=== PATIENT | female | born 1950 | race African-American/Black ===

== ENCOUNTER 2023-10-14 11:25 | Observation (INO) | payer MEDICARE, SELFPAY ==
[2023-10-14] VITALS (20 sets, daily range): BP systolic 133–171; BP diastolic 53–83; PULSE 61–75; RESP 13–20; TEMP 36.4–37; O2SAT 95–100; BMI 26.5
--- NOTE | ~2023-10-14 | CT_ITS ---
EXAMINATION: CT cervical spine wo con DATE: 10/14/2023 16:05 INDICATION: Left neck pain. Tingling down left arm. TECHNIQUE: Computed tomography (CT) of the cervical spine was performed without intravenous contrast. Automated exposure control and iterative reconstruction technique were employed. The dose-length pro duct was 316.09 mGy-cm. COMPARISON: None FINDINGS: There is 7 degrees dextrocurvature of cervical spine. Vertebral body heights are normal. Th ere is moderately decreased disc height at C2-C3, C3-C4, and C5-C6 and mildly decreased disc height a t C6-C7. The following disc levels are specifically discussed: C2-C3: There is severe bilateral uncovertebral joint osteoarthritis. There is mild right and moderate left facet joint osteoarthritis. There is mild left neural foraminal stenosis. There is no central c anal stenosis. C3-C4: There is severe bilateral uncovertebral joint osteoarthritis. There is mild right and moderate left facet joint osteoarthritis. There is mild bilateral neural foraminal stenosis. There is no cent ral canal stenosis. C4-C5: There is mild bilateral uncovertebral joint osteoarthritis. There is no facet joint osteoarthr itis. There is no neural foraminal stenosis. There is no central canal stenosis. C5-C6: There is severe right and mild left uncovertebral joint osteoarthritis. There is moderate righ t and mild left facet joint osteoarthritis. There is mild right neural foraminal stenosis. There is m ild central canal stenosis. C6-C7: There is no uncovertebral joint osteoarthritis. There is moderate right and severe left facet joint osteoarthritis. There is mild left neural foraminal stenosis. There is no central canal stenosi s. C7-T1: There is no uncovertebral joint osteoarthritis. There is severe right and moderate left facet joint osteoarthritis. There is mild right neural foraminal stenosis. There is no central canal stenos is. IMPRESSION: 1. Moderate cervical spondylosis. Reviewed, dictated and finalized at location E.
--- NOTE | ~2023-10-14 | XR_ITS ---
EXAMINATION: XR chest 2V DATE: 10/14/2023 12:34 INDICATION: Chest pain TECHNIQUE: frontal and lateral views of the chest were obtained. COMPARISON: None FINDINGS: Couple calcified nodules in the right lower lung consistent with old granulomatous disease. Bronchial wall thickening and mild increased interstitial pattern in the dependent lower lungs. No pleural eff usion or pneumothorax. The cardiomediastinal silhouette is normal. Lower thoracic dextroscoliosis with moderate spondylosis . Suture anchors at the right humeral head likely for prior rotator cuff repair. IMPRESSION: 1. Marked wall thickening and increased interstitial pattern in the dependent lower lungs which could represent mild pulmonary edema, bronchitis/pneumonia or reactive airway disease/asthma. Reviewed, dictated and finalized at location A. IMPRESSION: 1. Marked wall thickening and increased interstitial pattern in the dependent l ower lungs which could represent mild pulmonary edema, bronchitis/pneumonia or reactive airway disease/asthma.
--- NOTE | ~2023-10-14 | CT_ITS ---
EXAMINATION:CT diagnostic chest w con DATE: 10/14/2023 13:46 INDICATION: Abnormal chest radiograph. Chest pain. TECHNIQUE: Computed tomography (CT) of the chest was performed with 75 mL Omnipaque 350 intravenous c ontrast. Automated exposure control and iterative reconstruction technique were employed. The dose-le ngth product (DLP) was 176.09 mGy-cm. COMPARISON: Chest 2 views 10/14/2023 FINDINGS: There is mild emphysema. There is mild atelectasis bilaterally. There is mild bronchiectasi s in the inferior lungs. A calcified right lung nodule and calcified right hilar lymph nodes are cons istent with old granulomatous disease. There is a 5 mm nodule in right upper lobe, likely benign. No pleural effusion. The heart size is normal. No pericardial effusion. There are cysts in left kidney m easuring up to 4.9 cm. There are suture anchors in right humeral head. There is thoracic dextroscolio sis, kyphosis, and severe spondylosis. IMPRESSION: 1. Mild emphysema. 2. Mild bronchiectasis in the inferior lungs. Reviewed, dictated and finalized at location E.
--- NOTE | ~2023-10-14 | NM_ITS ---
EXAMINATION: NM wero stress w perfusion DATE: 10/15/2023 14:26 INDICATION: Chest pain TECHNIQUE: Rest images were obtained following intravenous administration of 9.9 mCi Tc99m tetrofosmi n (Myoview). The patient was infused intravenously with Lexiscan (Regadenoson). Then, 31.2 mCi Tc99m tetrofosmin (Myoview) was administered intravenously, and stress images were obtained. Data was recon structed into short axis and horizontal and vertical long axis SPECT images. Gated SPECT images were also obtained. COMPARISON: None. FINDINGS: There is no definite reversible or fixed perfusion abnormality to suggest ischemia or infar ction. There is normal left ventricular chamber size and wall motion. Left ventricular ejection fra ction measures 37%. IMPRESSION: 1. Normal myocardial perfusion at rest and during stress. 2. Left ventricular ejection fraction measuring 37% but appears subjectively underestimated. Reviewed, dictated and finalized at location B. IMPRESSION: 1. Normal myocardial perfusion at rest and during stress. 2. Left ventricular ejection fraction measuring 37% but appears subjectively un derestimated.
--- NOTE | 2023-10-14 11:31 | ECG_ITS ---
Test Date: 2023-10-14 11:40:32 Measurements Intervals [place] Rate: 69 P: 59 [place]: 200 QRS: 23 QRSD: 90 T: 33 QT: 378 QTc: 407 Interpretive Statements SINUS RHYTHM ABNORMAL ECG No previous ECG available for comparison Electronically Signed On 10-15-2023 07:13:20 CDT by oTdd Jonas M.D.
[2023-10-14 11:45] LABS: Basophils Percent Auto 0.5 % (0.2-1.2); Eosinophils Absolute Auto 0.1 K/mm3 (0-0.3); Eosinophils Percent Auto 0.7 % (0-4.4); Hematocrit 47.2 % (37.0-47.0); Hemoglobin 15.3 g/dL (12.0-15.0); Immature Granulocyte Absolute 0.01 K/mm3 (0.00-0.031); Immature Granulocyte Percent A 0.1 % (0-0.5); Lymphocytes Absolute Auto 2.23 K/mm3 (0.9-3.2); Lymphocytes Percent Auto 30.1 % (18.3-44.2); Mean Corpuscular HGB Conc 32.4 g/dl (32-36); Mean Corpuscular Hemoglobin 28.4 pg (26-34); Mean Corpuscular Volume 87.6 fl (80-100); Monocytes Absolute Auto 0.4 K/mm3 (0.1-0.6); Monocytes Percent Auto 5.7 % (2.6-8.5); Neutrophils Absolute Auto 4.7 K/mm3 (1.3-6.7); Neutrophils Percent Auto 62.9 % (45.5-73.1); Platelet Count Result 291 k/mm3 (150-375); Red Blood Count 5.39 M/mm3 (4.2-5.4); Red Cell Distribution Width 15.1 % (11.5-14.5); White Blood Count 7.4 K/mm3 (4.5-10.0)
[2023-10-14 11:55] LABS: Alanine Aminotransferase 37 U/L (6-35); Albumin Level 4.6 g/dL (3.5-5.1); Alkaline Phosphatase 139 U/L (38-126); Anion Gap 7 mmol/L (4-12); Aspartate Amino Transferase 28 U/L (14-36); Bilirubin,Total 0.7 mg/dL (0.2-1.3); Blood Urea Nitrogen 16 mg/dL (7-17); Calcium 9.4 mg/dL (8.4-10.2); Carbon Dioxide 28 mmol/L (22-30); Chloride 103 mmol/L (98-107); Estimated CRCL calculation 52 ml/min; Estimated Glomerular Filt Rate > 60; Glucose 200 mg/dL (65-110); Lipase 54 U/L (23-300); Potassium 3.4 mmol/L (3.4-5.0); Sodium 138 mmol/L (137-145)
[2023-10-14 11:57] LABS: INR 2.2; Prothrombin Time 24.8 Seconds (11.1-14.7)
[2023-10-14 11:58] LABS: Partial Thromboplastin Time 38.9 Seconds (22.3-36.8)
[2023-10-14 12:06] LABS: Troponin I < 0.012 ng/mL (0.000-0.034)
--- NOTE | 2023-10-14 12:09 | ED.CHESTPAIN ---
HPI - Chest Pain General Chief Complaint: Chest Pain Stated Complaint: not feeling well Time Seen by Provider: 10/14/23 11:58 Source: patient and family Mode of arrival: ambulatory Limitations: no limitations History of Present Illness HPI narrative: Patient presents with chest pain this morning at 9:30 while taking a bath. Initially denies any radiation though does state she has been having left arm pain and tingling in her hand and that hasn't happened before. She was supposed to have a stress test originally tomorrow (advertising supervisor Dr Moreno, last seen 08/07/23) but they recently called and had her reschedule 11/19/23. Pain describes as a heaviness, now a fullness. She was having generalized weakness starting yesterday. She had 2 cardiac stents placed >5 years ago with no interval stress test or subsequent cardiac cath. No lower extremity edema. She feels nauseated but no vomiting. Not diaphoretic or short of brath. Hx HTN, HLD. No prior ME. History of diabetes not on insulin. Asks why her sugars have been high. Previously on metformin but it caused mental fogginess and this was discontinued. Cutting back on smoking, previously 1 PPD now 8 cigarettes/day. On carvedilol, amlodipine, atorvasatin, and warfarin. No family history of ME <65yo. Related Data Home Medications Medication Instructions Recorded Confirmed Lactobacillus rhamnosus GG 10 1 cap PO DAILY 10/14/23 10/14/23 billion cell capsule (Culturelle) Ultra CoQ10 1 tablet PO DAILY 10/14/23 10/14/23 amlodipine 10 mg tablet 10 mg PO DAILY 10/14/23 10/14/23 atorvastatin 20 mg tablet 20 mg PO DAILY 10/14/23 10/14/23 carvedilol 25 mg tablet 12.5 mg PO BID 10/14/23 10/14/23 chlorthalidone 25 mg tablet 25 mg PO DAILY 10/14/23 10/14/23 cod liver oil 1 cap PO DAILY 10/14/23 10/14/23 ergocalciferol (vitamin D2) 1,250 1,250 mcg PO WEEKLY 10/14/23 10/14/23 mcg (50,000 unit) capsule (Vitamin D2) hydrocodone 5 mg-acetaminophen 325 1 tablet PO TID PRN Pain (Scale 10/14/23 10/14/23 mg tablet Score 7-10) magnesium 500 mg tablet 500 mg PO DAILY 10/14/23 10/14/23 multivitamin 1 tablet PO DAILY 10/14/23 10/14/23 vit C 250 mg-vit E 90 mg-zinc 40 1 cap PO DAILY 10/14/23 10/14/23 mg-copper 1 jh-wuehwr-eunhgy capsule (PreserVision AREDS-2) warfarin 5 mg tablet See Rx Instructions .Route .COMPLEX 10/14/23 10/14/23 Allergies Allergy/AdvReac Type Severity Reaction Status Date / Time aspirin AdvReac Nausea and Verified 10/14/23 11:43 Vomiting cephalexin [From Keflex] AdvReac Nausea and Verified 10/14/23 11:43 Vomiting codeine AdvReac Nausea and Verified 10/14/23 11:43 Vomiting PMFSH Past Medical History Medical History (Updated 10/15/23 @ 17:07 by Maria Alejandra Phelan MD) CAD (coronary artery disease) Cataracts, bilateral COPD (chronic obstructive pulmonary disease) DM2 (diabetes mellitus, type 2) GERD (gastroesophageal reflux disease) HTN (hypertension) Hypercholesterolemia Migraines Ulcer Surgical History Surgical History History of heart artery stent x2 History of repair of rotator cuff Family History Family History Sibling Asthma Diabetes mellitus Prostate carcinoma Daughter Diabetes mellitus Son Leukemia Other Hypertension Social History Social History (Updated 10/15/23 @ 17:07 by Maria Alejandra Phelan MD) Smoking packs per day: 0.5 Smoking cigarettes per day: 10.0 Years smoked: 57 Smoking pack-years: 28.50 Smoking status: Current every day smoker Tobacco type: cigarettes Additional smoking assessment comments: Previously 1 PPD, now 8 cigarettes/day Alcohol intake: never Substance use: never Do You Feel Safe in your Home?: Yes Lack of Transportation: No Lack of Food: Never True Current Housing: I Have Housing Concerned About Future Housing: No Difficulty Paying Gas/Electric Bills: No Dif
[2023-10-14 12:39] LABS: Magnesium 1.9 mg/dL (1.6-2.3)
[2023-10-14 13:05] LABS: Influenza A QL RT-PCR Negative (Negative); Influenza B QL RT-PCR Negative (Negative); RSV RNA, RT-PCR Negative (Negative); SARS-CoV-2 RNA PCR Negative (Negative)
[2023-10-14 13:35] LABS: Appearance Urine Clear (Clear); Bilirubin Urine Negative (Negative); Blood Urine Negative (Negative); Color Urine Yellow (Yellow); Glucose Urine UA Negative (Negative); Ketones Urine Negative (Negative); Leukocyte Esterase Ur Negative LEU/UL (Negative); Nitrate Urine Negative (Negative); Protein Urine Negative (Negative); Urobilinogen Urine 0.2 mg/dL (<2.0)
--- NOTE | 2023-10-14 13:39 | PC.NURSE ---
Patient in cat scan
[2023-10-14 13:50] LABS: Add Urine Microscopic? NO
[2023-10-14] MEDS: SODIUM CHLORIDE 0.9% IV 1,000 ML 999 ML IV CONT (14:08)
[2023-10-14 14:52] LABS: Troponin I < 0.012 ng/mL (0.000-0.034)
[2023-10-14] MEDS: HYDROcodone/acetaminophen (*CRX) 5-325 MG TABLET 1 TAB PO ×2 (15:19→23:59)
--- NOTE | 2023-10-14 16:03 | PM.IMHP ---
H&P: HPI History of Present Illness Date/Time: 10/14/23 16:03 Chief Complaint: Chest Pain Narrative: 73 y/o F presents here with chest pain with PMH of hypertension, hyperlipidemia, diabetes mellitus, smoker, COPD, CAD, and prior PCI x2 (two different occasional). Patient presents here from home for further evaluation of generalized weakness, chest pain, and left arm pain with tingling in her left hand. Chest pain started this morning while the patient was sitting in bed at 0930 a.m. She describes the chest pain as heaviness, 8/10, radiating into her LUE, constant, no aggravating factors, and no alleviating factors. She follows with Tiffanie JAEGER with [facility] for her cardiac care. She had a scheduled stress test planned for tomorrow and was rescheduled today due to coming to the ER for 11/05. Patient does report some neck pain that has been intermittent for the past 10/06. Has known basal vertebral stenosis on warfarin for this. The chest pain earlier this morning was accompanied by intermittent mild nausea and fatigue. Denies sense of doom, diaphoresis, palpitations, jaw pain, GERD-like symptoms, pre-syncope, or shortness of breath. No recent illnesses. Had one new medication added this month - chlorthalidone. Chest pain is still present, described as dull, radiating into her LUE, and 6/10. Initial VS at presentation: 97.5F, HR 72, RR 18, 171/73, 98% on RA. ED workup showed: No leukocytosis, hemoglobin 15.3, INR 2.2, no significant electrolyte derangements, A1c 7.3%, glucose 200, creatinine 0.7 and normal GFR, initial troponins negative x2, and UA unremarkable. CXR showed marked wall thickening and increased interstitial pattern in the dependent lower lung that could represent mild pulmonary edema, bronchiectasis/pneumonia, or reactive airway disease. Chest CT showed mild emphysema and mild bronchiectasis in inferior lungs. Want EKG showed normal sinus rhythm with a rate of 69. Review of Systems Review of Systems: All systems reviewed & are unremarkable except as noted in HPI and below [facility] Past Medical History Medical History CAD (coronary artery disease) Cataracts, bilateral COPD (chronic obstructive pulmonary disease) DM2 (diabetes mellitus, type 2) GERD (gastroesophageal reflux disease) HTN (hypertension) Migraines Ulcer Surgical History Surgical History History of heart artery stent x2 History of repair of rotator cuff Family History Family History Sibling Asthma Diabetes mellitus Prostate carcinoma Daughter Diabetes mellitus Son Leukemia Other Hypertension Social History Social History Smoking packs per day: 0.5 Smoking cigarettes per day: 10.0 Years smoked: 57 Smoking pack-years: 28.50 Smoking status: Current every day smoker Tobacco type: cigarettes Alcohol intake: never Substance use: never Do You Feel Safe in your Home?: Yes Lack of Transportation: No Lack of Food: Never True Current Housing: I Have Housing Concerned About Future Housing: No Difficulty Paying Gas/Electric Bills: No Difficulty Paying for Meds: No Currently Unemployed: No Education: High School Diploma/GED Difficulty w/ Childcare or Family Care: No Spiritual care concerns: No Meds Home Medications and Allergies Home Medications Medication Instructions Recorded Confirmed Type Lactobacillus rhamnosus GG 10 1 cap PO DAILY 10/14/23 10/14/23 History billion cell capsule (Culturelle) Ultra CoQ10 1 tablet PO DAILY 10/14/23 10/14/23 History amlodipine 10 mg tablet 10 mg PO DAILY 10/14/23 10/14/23 History atorvastatin 20 mg tablet 20 mg PO DAILY 10/14/23 10/14/23 History carvedilol 25 mg tablet 12.5 mg PO BID 10/14/23 10/14/23 History chlorthalid
[2023-10-14 16:04] LABS: Hemoglobin A1C 7.3 % (<5.7)
--- NOTE | 2023-10-14 16:41 | PC.NURSE ---
This RN received report from GILLIAN Harris. Patient A&O, no current CP at this time.
--- NOTE | 2023-10-14 17:21 | ADMGEN ---
This patient, Angie Ferrera, was admitted to IMU Room 212-01. Patient/family oriented to hospital policies and general routines including ID bracelet, bed and alarms, visiting hours, pain management, procedures, bathroom and other care routines, personal items, smoking policy, room service/diet, and visiting hours. Information on how to activate the Rapid Response Team has been discussed. Patient/Family are encouraged to report perceived risks to care and to ask questions if they do not understand what they are told or what they should do.
[2023-10-14 18:17] LABS: Troponin I < 0.012 ng/mL (0.000-0.034)
[2023-10-14 18:44] LABS: Cholesterol 185 mg/dL (0-200); HDL Direct 46 mg/dL; Triglycerides 196 mg/dL (<150)
[2023-10-14 18:55] LABS: LDL Cholesterol Direct 106 mg/dL
[2023-10-14 20:35] LABS: Glucose Point of Care 270 mg/dl (65-105)
[2023-10-14] MEDS: carvediloL 12.5 MG TABLET PO (23:59)
[2023-10-15] VITALS (12 sets, daily range): BP systolic 123–146; BP diastolic 49–63; PULSE 54–68; RESP 16–18; TEMP 36.7–36.8; O2SAT 95–98; BMI 26.9
--- NOTE | 2023-10-15 | EST_ITS ---
Patient Info Name: Angie Ferrera Age: 73 years : 1950 Gender: Female Ht: 61 in Wt: 142 lbs BSA: 1.68 m2 HR: 57 bpm BP: 151 / 58 mmHg Exam Date: 10/15/2023 1:14 PM Exam Location: Echo Lab Patient Status: Inpatient Admit Date: 10/14/2023 Staff Ordering Physician: Elissa Miranda Attending Provider: Joanne Hoskins APRN Exercise Technologist: Amie Collins RDCS Exam Type: CA stress wero w NM Study Info A regadenoson stress test was performed. Summary 1. Sinus bradycardia, otherwise normal ECG. 2. No ST segment changes following Lexiscan infusion. 3. Clinically and electrocardiographically negative Lexiscan stress test. 4. Myocardial perfusion imaging study to be dictated by Radiology. Protocol: Lexiscan Stress ECG Details Stage: REST Duration (min): 7 min : 58 sec HR (bpm): 58 SBP (mmHg): 151 DBP (mmHg): 58 Stage: REST Duration (min): 16 min : 40 sec HR (bpm): 63 SBP (mmHg): 151 DBP (mmHg): 58 Stage: STAGE 1 Duration (min): 1 min : 0 sec HR (bpm): 79 SBP (mmHg): 148 DBP (mmHg): 50 Stage: RECOVERY Duration (min): 1 min : 0 sec HR (bpm): 80 SBP (mmHg): 148 DBP (mmHg): 50 Stage: RECOVERY Duration (min): 2 min : 0 sec HR (bpm): 77 SBP (mmHg): 148 DBP (mmHg): 50 Stage: RECOVERY Duration (min): 3 min : 0 sec HR (bpm): 74 SBP (mmHg): 132 DBP (mmHg): 53 Stage: RECOVERY Duration (min): 3 min : 11 sec HR (bpm): 72 SBP (mmHg): 132 DBP (mmHg): 53 Rest HR: 63 bpm Peak HR: 82 bpm Rest Sys BP: 151 mmHg Peak Sys BP: 148 mmHg Max Pred HR: 146 bpm % Max Pred HR: 56 % Target HR: 124 bpm Max RPP: 12,136 bpm*mmHg Termination Reason: Completed protocol Total Time: 1 min : 0 sec Rest Fowler BP: 58 mmHg Peak Fowler BP: 50 mmHg Total Dose: 0.4 mg Resting ECG Sinus bradycardia, otherwise normal ECG. Stress ECG No ST segment changes following Lexiscan infusion. Report Signatures
--- NOTE | 2023-10-15 | ECHO_ITS ---
Patient Info Name: Angie Ferrera Age: 73 years : 1950 Gender: Female Ht: 61 in Wt: 142 lbs BSA: 1.68 m2 HR: 58 bpm BP: 123 / 49 mmHg Heart Rhythm: Sinus Rhythm Technical Quality: Fair Exam Date: 10/15/2023 11:53 AM Exam Location: Echo Lab Patient Status: Inpatient Admit Date: 10/14/2023 Staff Ordering Physician: Joanne Hoskins APRN Nurse Practitioner Per Diem: Thomas Blank RDCS Attending Provider: Joanne Hoskins APRN Referring Physician: Gato BENITO; Exam Type: CA echo doppler color flow Study Info Indications R07.9 - Chest pain, unspecified Complete two-dimensional, color flow and Doppler transthoracic echocardiogram is performed. Summary 1. Complete two-dimensional, color flow and Doppler transthoracic echocardiogram is performed. 2. Concentric left ventricular hypertrophy with vigorous systolic function. 3. Moderate left atrial enlargement. 4. Mild aortic valve sclerosis with well maintained leaflet excursion. 5. Trivial mitral regurgitation. Left Ventricle Left ventricular chamber dimension is normal. Left ventricular systolic function is normal, estimated at 60-65%. There is mild concentric increased left ventricular wall thickness. The left ventricular diastolic function is grade I diastolic dysfunction. Right Ventricle Right ventricular chamber dimension is normal. Left Atria Left atrial chamber dimension is moderately enlarged. Right Atria Right atrial chamber dimension is normal. Aortic Valve The aortic valve is trileaflet. There is mild aortic valve sclerosis. Pulmonic Valve The pulmonic valve is normal. Mitral Valve The mitral valve has normal leaflets. There is trace mitral valve regurgitation. Tricuspid Valve The tricuspid valve leaflets are normal. There is mild tricuspid valve regurgitation. Pericardium/Pleural The pericardium appears normal. Aorta The aortic root size at the sinus of Valsalva is normal. Left Ventricular Outflow Tract Name Value Normal LVOT 2D LVOT Diameter 1.9 cm LVOT Doppler LVOT Peak Gradient 7 mmHg LVOT Mean Gradient 3 mmHg LVOT VTI 30 cm LVOT VTI/AV VTI Ratio 0.7 LVOT Stroke Volume 84 ml LVOT CO 4.7 l/min LVOT CI 2.8 l/min/m2 Pulmonic Valve Name Value Normal RVOT Doppler RVOT Peak Gradient 2 mmHg PV Doppler PV Peak Gradient 2 mmHg PV Regurgitation Doppler VT Peak End Diastolic Velocity 99 cm/s Mitral Valve Name Value Normal ------
[2023-10-15 04:27] LABS: Basophils Absolute Auto 0.1 K/mm3 (0.0-0.1); Basophils Percent Auto 0.7 % (0.2-1.2); Eosinophils Absolute Auto 0.2 K/mm3 (0-0.3); Eosinophils Percent Auto 2.1 % (0-4.4); Hematocrit 42.5 % (37.0-47.0); Hemoglobin 13.5 g/dL (12.0-15.0); Immature Granulocyte Absolute 0.01 K/mm3 (0.00-0.031); Immature Granulocyte Percent A 0.1 % (0-0.5); Lymphocytes Absolute Auto 3.52 K/mm3 (0.9-3.2); Lymphocytes Percent Auto 49.1 % (18.3-44.2); Mean Corpuscular HGB Conc 31.8 g/dl (32-36); Mean Corpuscular Hemoglobin 28.2 pg (26-34); Mean Corpuscular Volume 88.9 fl (80-100); Mean Platelet Volume 9.6 fl (7.4-10.4); Monocytes Absolute Auto 0.6 K/mm3 (0.1-0.6); Monocytes Percent Auto 7.9 % (2.6-8.5); Neutrophils Absolute Auto 2.9 K/mm3 (1.3-6.7); Neutrophils Percent Auto 40.1 % (45.5-73.1); Platelet Count Result 267 k/mm3 (150-375); Red Blood Count 4.78 M/mm3 (4.2-5.4); Red Cell Distribution Width 15.3 % (11.5-14.5); White Blood Count 7.2 K/mm3 (4.5-10.0)
[2023-10-15 04:38] LABS: Alanine Aminotransferase 32 U/L (6-35); Albumin Level 3.6 g/dL (3.5-5.1); Alkaline Phosphatase 131 U/L (38-126); Anion Gap 5 mmol/L (4-12); Aspartate Amino Transferase 27 U/L (14-36); Bilirubin,Total 0.4 mg/dL (0.2-1.3); Blood Urea Nitrogen 18 mg/dL (7-17); Calcium 8.6 mg/dL (8.4-10.2); Carbon Dioxide 26 mmol/L (22-30); Chloride 107 mmol/L (98-107); Estimated CRCL calculation 52 ml/min; Estimated Glomerular Filt Rate > 60; Glucose 123 mg/dL (65-110); Potassium 3.6 mmol/L (3.4-5.0); Sodium 138 mmol/L (137-145)
[2023-10-15 07:31] LABS: Glucose Point of Care 152 mg/dl (65-105)
--- NOTE | 2023-10-15 08:35 | PM.CNCAR ---
Assessment and Plan Assessment and plan (1) Chest pain: Qualifiers: Chest pain type: other chest pain Qualified Code(s): R07.89 - Other chest pain Code(s): R07.9 - Chest pain, unspecified Status: Acute Assessment and Plan: Atypical chest pain with negative troponin and normal appearing EKG. She has a lexiscan stress test scheduled with her established darklight inspector and given lack of any objective evidence of ACS, would be reasonable to proceed with this. However, since patient already admitted will go ahead and order lexiscan to be performed today in the hospital. If negative for ischemia she can be discharged to follow up with Dr. Moreno (2) CAD (coronary artery disease): Code(s): I25.10 - Atherosclerotic heart disease of [place] coronary artery without angina pectoris Status: Acute Assessment and Plan: Hx CAD with 2 stents per patient report. Continue statin - she should be on a high intensity statin unless there is some contraindication to this I am unaware of. (3) HTN (hypertension): Qualifiers: Hypertension type: primary hypertension Qualified Code(s): I10 - Essential (primary) hypertension Code(s): I10 - Essential (primary) hypertension Status: Acute Assessment and Plan: Blood pressure is currently at goal. Continue current medical regimen. History of Present Illness History of Present Illness Consult date/time: 10/15/23 08:35 Requesting physician: Sandra Tolentino APRN Consult reason: chest pain Reason For Visit: CP/Heart score 5 Narrative: Angie Ferrera is a 73 year old female with a history of coronary artery disease with stents (most recent stent placed ~10 years ago). She follows with Dr. Moreno at [facility] for this. She comes to the hospital with a chief complaint of chest heaviness which she has adwoa experiencing for about 6 weeks. She states she forgot to mention it to Dr. Moreno at her last office visit. She describes the pain as a heavy sensation on her chest when she lays down especially in the evening. She denies any shortness of breath or radiation of the pain but does feel palpitations occasionally. She does not notice that the pain is worse with exertion and states that she hasn't tried any interventions to improve the pain but usually it will dissipate with rest. She is lying comfortably in bed at the time of my evaluation and does not have any complaints. Review of Systems Review of Systems: All systems reviewed & are unremarkable except as noted in HPI and below PMFSH Past Medical History Medical History (Updated 10/15/23 @ 17:07 by Maria Alejandra Phelan MD) CAD (coronary artery disease) Cataracts, bilateral COPD (chronic obstructive pulmonary disease) DM2 (diabetes mellitus, type 2) GERD (gastroesophageal reflux disease) HTN (hypertension) Hypercholesterolemia Migraines Ulcer Surgical History Surgical History History of heart artery stent x2 History of repair of rotator cuff Family History Family History Sibling Asthma Diabetes mellitus Prostate carcinoma Daughter Diabetes mellitus Son Leukemia Other Hypertension Social History Social History (Updated 10/15/23 @ 17:07 by Maria Alejandra Phelan MD) Smoking packs per day: 0.5 Smoking cigarettes per day: 10.0 Years smoked: 57 Smoking pack-years: 28.50 Smoking status: Current every day smoker Tobacco type: cigarettes Additional smoking assessment comments: Previously 1 PPD, now 8 cigarettes/day Alcohol intake: never Substance use: never Do You Feel Safe in your Home?: Yes Lack of Transportation: No Lack of Food: Never True Current Housing: I Have Housing Concerned About Future Housing: No Difficulty Paying Gas/Electric Bills: No Difficulty Paying for Meds: No Currently Unemployed: No Education: H
[2023-10-15] MEDS: ATORVASTATIN 20 MG TABLET PO (08:36)
[2023-10-15] MEDS: OPTI-GEN TAB 1 TABLET PO (08:37)
[2023-10-15] MEDS: CHLORTHALIDONE 25 MG TABLET PO (08:37)
[2023-10-15] MEDS: carvediloL 12.5 MG TABLET PO (08:37)
[2023-10-15] MEDS: MULTIVITAMINS THERAPEUTIC TAB (*BKC) 1 TABLET PO (08:37)
[2023-10-15] MEDS: amLODIPine BESYLATE 5 MG TABLET 10 MG PO (08:37)
[2023-10-15] MEDS: MAGNESIUM 27 MG TABLET (500 MG MAG GLUCONATE) PO (08:37)
[2023-10-15] MEDS: PANTOPRAZOLE 40 MG TABLET PO (08:40)
[2023-10-15 09:10] LABS: Magnesium 1.8 mg/dL (1.6-2.3)
[2023-10-15 09:11] LABS: INR 1.7; Prothrombin Time 19.9 Seconds (11.1-14.7)
[2023-10-15 11:57] LABS: Glucose Point of Care 120 mg/dl (65-105)
--- NOTE | 2023-10-15 14:52 | PC.NURSE ---
Updated provider of wero scan results, waiting on echo to be read.
--- NOTE | 2023-10-15 16:06 | PM.DS ---
DS: Admitting Diagnosis Discharge Date 10/15/2023 Admitting Diagnosis Chest Pain DS: Discharge Diagnosis Discharge Diagnosis (1) Chest pain: Qualifiers: Chest pain type: other chest pain Qualified Code(s): R07.89 - Other chest pain Code(s): R07.9 - Chest pain, unspecified Status: Acute Assessment and Plan: - EKG, initial: Sinus rhythm, rate 69, no previous available for comparison. Awaiting formal read. - EKG, repeat ordered with 6 hour troponin - CXR: marked wall thickening and increased interstitial pattern in the dependent lower lungs which could represent mild pulmonary edema, bronchitis/pneumonia or reactive airway disease/asthma. - Troponin: <0.012 - ASA 324 given and SL nitro PRN - cardiology consulted, awaiting recs - on warfarin, continue. INR 2.2 - add lipid panel, A1C is 7.3 - follows with [facility] - stress test was previously planned for tomorrow, cancelled due to current admission, no previous on file - telemetry monitoring (2) Hyperglycemia due to diabetes mellitus: Code(s): E11.65 - Type 2 diabetes mellitus with hyperglycemia Status: Acute Assessment and Plan: - hypoglycemia protocol - POC blood glucose ACHS - no home medications, previously has only been on metformin and was not tolerated well - correct regimen ordered - low TIDWM and HS - A1C 7.3% on 10/13 - biofuels production technician consulted (3) HTN (hypertension): Qualifiers: Hypertension type: primary hypertension Qualified Code(s): I10 - Essential (primary) hypertension Code(s): I10 - Essential (primary) hypertension Status: Acute Assessment and Plan: - chronic, currently 143/53 - continue home medications: Amlodipine 10 mg, carvedilol 12.5 mg BID, chlorthalidone 25 mg daily - monitor Plan The patient presented here with midsternal chest pain radiating down her left arm. Sees [facility] for her cardiac care. Had planned stress test tomorrow, however canceled due to current admission. NPO at midnight in case of procedures. Cardiology consulted. Troponin negative x3. Also has uncontrolled diabetes, previously trialed on metformin and was not tolerated well, no other home medications. neuro intensivist physician consulted. DS: Summary Hospital Course Reason for hospitalization: Chest Pain Hospital Course: Chief Complaint: Chest Pain Narrative: 73 y/o F presents here with chest pain with PMH of hypertension, hyperlipidemia, diabetes mellitus, smoker, COPD, CAD, and prior PCI x2 (two different occasional). Patient presents here from home for further evaluation of generalized weakness, chest pain, and left arm pain with tingling in her left hand. Chest pain started this morning while the patient was sitting in bed at 0930 a.m. She describes the chest pain as heaviness, 8/10, radiating into her LUE, constant, no aggravating factors, and no alleviating factors. She follows with Tiffanie JAEGER with [facility] for her cardiac care. She had a scheduled stress test planned for tomorrow and was rescheduled today due to coming to the ER for 11/05. Patient does report some neck pain that has been intermittent for the past 10/06. Has known basal vertebral stenosis on warfarin for this. The chest pain earlier this morning was accompanied by intermittent mild nausea and fatigue. Denies sense of doom, diaphoresis, palpitations, jaw pain, GERD-like symptoms, pre-syncope, or shortness of breath. No recent illnesses. Had one new medication added this month - chlorthalidone. Chest pain is still present, described as dull, radiating into her LUE, and 6/10. Initial VS at presentation: 97.5F, HR 72, RR 18, 171/73, 98% on RA. ED workup showed: No leukocytosis, hemoglobin 15.3, INR 2.2, no significant electrolyte derangements, A1c 7.3%, glucose 200, creatinine 0.7 and normal GFR, initial troponins negative x2, and UA unremarkable. CXR showed marke
[2023-10-15] MEDS: WARFARIN (*PBKC) 5 MG TABLET PO (17:02)
== END 2023-10-15 17:36 | disposition home or self-care (01) ==
LOC: ANHED 12:11 → ANHIMU 16:40
PROVIDERS: Student in an Organized Health Care Education/Training Program; Admitting Provider Internal Medicine; Emergency Provider Student in an Organized Health Care Education/Training Program; PCP Internal Medicine; Visit Provider Nurse Practitioner Family
DX: R07.9 Chest pain, unspecified (principal); R74.01 Elevation of levels of liver transaminase levels; E11.65 Type 2 diabetes mellitus with hyperglycemia; M47.812 Spondylosis without myelopathy or radiculopathy, cervical region; J47.9 Bronchiectasis, uncomplicated; I10 Essential (primary) hypertension; I25.10 Atherosclerotic heart disease of native coronary artery without angina pectoris; J44.9 Chronic obstructive pulmonary disease, unspecified; E78.00 Pure hypercholesterolemia, unspecified; K21.9 Gastro-esophageal reflux disease without esophagitis; F17.210 Nicotine dependence, cigarettes, uncomplicated; Z79.01 Long term (current) use of anticoagulants; Z20.822 Contact with and (suspected) exposure to COVID-19
CPT/HCPCS: 36415; 71046; 71260; 72125; 78452; 80053; 80061; 81003; 82948; 83036; 83690; 83735; 84484; 85025; 85610; 85730; 87637; 93005; 93017; 93306; 96360; 99285; A9270; A9502; G0378; J2785; J7030; Q9967

== ENCOUNTER 2024-01-17 11:27 | Outpatient (CLI) | payer MEDICARE, SELFPAY ==
--- NOTE | ~2024-01-17 | XR_ITS ---
EXAM: XR knee RT 3V DATE: 01/17/2024 11:59 HISTORY: PAIN OF RIGHT KNEE JOINT . COMPARISON: None available. FINDINGS: Decreased mineralization. No fracture or dislocation. No lytic or blastic lesion. Quadrice ps enthesopathy. Mild medial and lateral joint space narrowing. Mild patellofemoral osteophytosis. No erosion or periosteal change. Scattered vascular calcifications. IMPRESSION: Osteopenia. Mild tricompartmental osteoarthritis. Reviewed, dictated and finalized at location K.
== END 2024-01-17 11:28 | disposition home or self-care (01) ==
LOC: ANHIMG 11:33
PROVIDERS: PCP Internal Medicine; Visit Provider Internal Medicine
DX: M85.88 Other specified disorders of bone density and structure, other site (principal); M17.11 Unilateral primary osteoarthritis, right knee
CPT/HCPCS: 73562

== ENCOUNTER 2024-04-17 12:42 | Outpatient (CLI) | payer MEDICARE, SELFPAY ==
--- NOTE | ~2024-04-17 | MR_ITS ---
EXAMINATION: MR knee RT wo con DATE: 04/17/2024 13:18 INDICATION: Right knee pain TECHNIQUE: Magnetic resonance imaging (MRI) of the right knee was performed without intravenous contr ast. Sequences included coronal PD-weighted FSE, coronal PD-weighted FS FSE, sagittal T2-weighted FS E, sagittal PD-weighted FS FSE and axial PD weighted fat saturated FSE. COMPARISON: Right knee radiographs dated 01/17/2024 FINDINGS: Medial compartment: Medial meniscus is normal. Deep chondral fissuring without degenerative subchondral changes at the la teral half of the anterior weightbearing medial femoral condyle. Remaining articular cartilage is nor mal. Lateral compartment: Lateral meniscus is normal. Articular cartilage is normal. Patellofemoral compartment: Partial-thickness cartilage loss involving greater than 50% the cartilage thickness but without degen erative subchondral changes at the cephalad two thirds of the lateral patellar facet, apical ridge an d lateral side of the medial facet. Additional full/near full-thickness chondral ulceration with mild underlying cortical irregularity and minimal subarticular edema-like signal change at the lateral tr ochlea. Partial-thickness chondral fissuring without degenerative subchondral changes at the cephalad aspect of the trochlear groove and medial trochlea. Ligaments and tendons: Anterior and posterior cruciate ligaments are normal. The medial collateral ligament and fibular isaac ateral ligament complex are normal. There are small enthesophytes at the patellar insertion of the ot herwise normal patellar and distal quadriceps tendons. The visualized medial and lateral hamstring te ndons as well as the iliotibial band are normal. Fluid: Physiologic amount of fluid in the joint space. No loose osteochondral bodies identified. Osseous/other: Bone alignment is normal. No fracture or pathologic marrow replacing process. Low signal intensity [place] at the posterior lateral femoral condyle. There is a 2.0 x 1.6 x 1.3 cm heterogeneously ilya y T2 hyperintense ovoid mass which appears to arise from the peroneal nerve most consistent with a sc hwannoma. IMPRESSION: 1. Mild osteoarthritis with regions of moderate to high-grade chondromalacia in the medial and patell ofemoral compartments. 2. 2.0 x 1.6 x 1.3 cm very T2 hyperintense mass along the common peroneal nerve most consistent with a schwannoma. Reviewed, dictated and finalized at location B. L AND PATTERN SUPERVISOR IMPRESSION: 1. Mild osteoarthritis with regions of moderate to high-grade chondromalacia in the medial and patellofemoral compartments. 2. 2.0 x 1.6 x 1.3 cm very T2 hyperintense mass along the common peroneal nerve most consistent with a schwannoma.
== END 2024-04-17 12:43 | disposition home or self-care (01) ==
LOC: GOSHIMG 12:42
PROVIDERS: PCP Internal Medicine; Visit Provider Orthopaedic Surgery
DX: M17.11 Unilateral primary osteoarthritis, right knee (principal); M22.41 Chondromalacia patellae, right knee; G57.31 Lesion of lateral popliteal nerve, right lower limb
CPT/HCPCS: 73721

== ENCOUNTER 2024-05-22 10:56 | Outpatient (CLI) | payer MEDICARE, SELFPAY ==
--- NOTE | ~2024-05-22 | MM_ITS ---
EXAMINATION: MM screening [facility] BI w swati HISTORY: Screening TECHNIQUE: Craniocaudal and mediolateral oblique 3-D tomosynthesis images were obtained and synthetic 2-D images were generated. CAD analysis was submitted and interpreted. COMPARISON: No prior mammogram is available for comparison at this institution. BREAST PARENCHYMAL COMPOSITION: Not dense: There are scattered areas of fibroglandular density. FINDINGS: There is no evidence of suspicious mass, calcification, or architectural distortion to sugg est malignancy in either breast. There has been no suspicious interval change. IMPRESSION: 1. No mammographic evidence of malignancy. 2. Recommend routine screening mammography in one year. BI-RADS Category 1: Negative Reviewed, dictated and finalized at location A. HIATRIC LPN
--- OUTSIDE RECORDS SUMMARY | 2024-05-22 11:49 | XMS_ITS | Clinical Summary ---
Author Organization [facility] Address [address] [place] [address] Care Team Providers Care Sanitary Engineer Name Role Phone Provider, No Pcp Primary Care Provider Unavailab le Source Comments [facility],non-owned Affiliates and Associated Physician Practices is amultiple site organization consisting of ambulatory clinics and hospital sitesin [place], [place], [place] and [place]. This disclosure is being madepursuant to the Care Everywhere program and may not contain all information available regarding this patient. Last updated 18.[facility] Allergies No known active allergies Medications * Be aware that medications may not be up to date on this document. Alwaysverify current medications with the patient. Medication Sig Dispensed Refills Start Date End Date Status warfarin (Coumadin) 7.5 MG tablet Take 1 (one) tablet by mouth once daily Active warfarin (Coumadin) 5 MG tablet Take 1 (one) tablet by mouth once daily Active atorvastatin (Lipitor) 20 MG tablet Take 1 (one) tablet by mouth once daily Active chlorthalidone (Hygroton) 25 MG tablet Take 1 (one) tablet by mouth once daily Active carvedilol (Coreg) 25 MG tablet Take 0.5 (one-half) tablet by mouth 2 times daily Active amLODIPine (Norvasc) 10 MG tablet Take 1 (one) tablet by mouth once daily Active vitamin D, ergocalciferol, (Drisdol) 1.25 MG (19779 UT) capsule Take 1 (one) capsule by mouth Active Active Problems No known active problems Encounters Date Type Department Care Team Description 04/10/2024 1:15 PM CURTAIN SUPERVISOR Office Visit [facility] - Orthopedics [address] [place] [address], Count Includes [facility] [address] Barbara Liao PA-C Cervical radiculopathy at C8 (Primary Dx); Cervical spondylosis; Rotator cuff arthropathy, left; Shoulder arthritis 04/10/2024 Travel 03/31/2024 Telephone [facility] - Orthopedics [facility] [facility], [place] [address] Marlena Zarate, GILLIAN Question 03/04/2024 1:00 PM CURTAIN SUPERVISOR Office Visit [facility] - Family Medicine [address] [place] [address], [place] [address] Harvinder Kaur MD Osteoarthritis of left glenohumeral joint (Primary Dx) 03/04/2024 Travel 02/21/2024 11:30 AM CDT - 02/21/2024 11:59 PM CDT Hospital Encounter [facility] [address] [place] [address] Barbara Liao PA-C Discharge Disposition: Home or Self Care 02/21/2024 Travel from Last 3 Months Social History Tobacco Use Types Packs/Day Years Used Date Smoking Tobacco: Some Days Cigarettes Smokeless Tobacco: Never Tobacco Cessation:Ready to Q uit: Not Asked; Counseling Given: Not Answered Alcohol Use Standard Drinks/Week Comments Not Currently 0 (1 standard drink = 0.6 oz pur e alcohol) PHQ-2 Answer Date Recorded Patient Health Questionnaire-2 Score 0 04/10/2024 Sex and Gender Information Value Date Recorded Sex Assigned at Not on file Gender Identity Not on file Sexual Orientation Not on file Last Filed Vital Signs Vital Sign Reading Time Taken Comments Blood Pressure 179/90 03/04/2024 1:25 PM CURTAIN SUPERVISOR Pulse - - Temperature - - Respiratory Rate - - Oxygen Saturation - - Inhaled Oxygen Concentration - - Weight 61.2 kg (135 lb) 04/10/2024 12:25 PM CURTAIN SUPERVISOR Height 154.9 cm (5' 1 ) 03/04/2024 1:25 PM CURTAIN SUPERVISOR Body Mass Index 25.51 03/04/2024 1:25 PM CURTAIN SUPERVISOR Plan of Treatment Health Maintenance Due Date Last Done Comments BONE DENSITY TESTING 1950 COLOGUARD (AGES 45-75) - COLON CA SCREENING 1950 COLON MONITORING 1949 COLONOSCOPY - COLON CA SCREENING 1949 CT COLONOGRAPHY - COLON CA SCREENING 1950 Colorectal Cancer Screening 1950 FIT - COLON CA SCREENING 1949 FLEX SIG - COLON CA SCREENING 1950 MAMMOGRAM 1950 HEPATITIS C SCREENING 02/18/1967 DTAP/TDAP/TD VACCINES (1 - Tdap) 02/23/1968 PNEUMOCOCCAL VACCINE 50+ (1 of 2 - PCV) 02/23/1968 ZOSTER VACCINE (1 of 2) 1999 COVID-19 VACCINE (6 - season) 2023 02/02/2023, 02/27/2022, 03/23/2021, Additional history exists INFLUENZA VACCINE (#1) 2023 , 01/18/2022, 01/18/2022, Additional history exists Respiratory Syncytial Virus (RSV) Vaccine Pt: or over 60 yrs (1 - 1-dose 75+ series) 02/23/2024 DEPRESSION SCREENING 04/23/2024 01/10/2024 MEDICARE AWV ? CALENDAR YEAR 2024 HEPATITIS B VACCINE Aged Out No longe r eligible based on patient's age to complete this topic HIB VACCINE Aged Out No longer eligi ble based on patient's age to complete this topic HPV VACCINE Aged Out No longer eligi ble based on patient's age to complete this topic MENINGOCOCCAL (Group B) VACCINE Aged Out No longer eligible based on patient's age to complete this topic MENINGOCOCCAL VACCINE Aged Out No arnulfo jyoti eligible based on patient's age to complete this topic Procedures Procedure Name Priority Date/Time Associated Diagnosis Comments [place] DRAIN INJ MAJOR JOINT BURSA W US Routine 03/04/2024 1:32 PM CURTAIN SUPERVISOR Osteoarthritis of left glenohumeral joint MRI CERVICAL SPINE WO CONTRAST Routine 02/21/2024 12:16 PM CDT Cervical radiculopathy at C8 Cervical spondylosis from Last 3 Months Results * [place] DRAIN INJ MAJOR JOINT BURSA W US (03/04/2024 1:32 PM CURTAIN SUPERVISOR) Narrative Harvinder Kaur MD - 03/04/2024 1:32 PM CURTAIN SUPERVISOR Harvinder Kaur MD ? 03/05/2024 11:05 AM U/S-GUIDED INJECTION PROCEDURE NOTE Risks/benefits of injection discussed, including bleeding, infection, site reaction, and possible flare. Pt. Expresses understanding and verbally consents for injection. U/S used to visualize anatomic area first. ??Next area prepped with chloroprep in usual sterile fashion. ?? Ethyl chloride for local anesthesia. ?? 2 cc of Kenalog (triamcinalone 40mg/ml) + 3 cc of bupivacaine .5% was injected into Left glenohumeral Joint using a posterior approach under ultrasound guidance. ??Pt. Tolerated well. ??No complications. An ultrasound image was saved demonstrating the successful needle localization. Harvinder Kaur MD PROCEDURE/MINOR ORTEGA RGICAL ORDERABLES * MRI Cervical Spine Wo Contrast (02/21/2024 12:16 PM CDT) Anatomical Region Laterality Modality Pelvis Magnetic Resonan ce 02/21/2024 2:32 PM CDT Impressions 2024 2:11 PM CDT IMPRESSION: 1.Multilevel degenerative disc and joint disease of the cervical spine as detailed level by level above. 2.No high-grade spinal canal stenosis at any level. 3.Varying degrees of neural foraminal stenoses as outlined. This study was dictated by residential assistant Prosper Mcgee MD and reviewed and edited by the attending. IAnkush MD have personally reviewed and interpreted this examination/study. > Interpreting Provider: Ankush Simpson MD on 2024 2:11 PM Narrative 2024 2:11 PM CDT PROCEDURE: ??MRI CERVICAL SPINE WO CONTRAST, DATE/TIME OF EXAM: ??02/21/2024 12:16 PM, LOCATION ??[facility] INDICATION: M54.12: Cervical radiculopathy at C8 M47.812: Cervical spondylosis ADDITIONAL CLINICAL INFORMATION: Ordering Provider Reason For Exam: ??Left C8 ardiculopathy Technologist Note: ??None. Additional: ??None. EXAMINATION: MRI of the cervical spine without contrast HISTORY: M54.12: Cervical radiculopathy at C8 M47.812: Cervical spondylosis TECHNIQUE: MRI of the cervical spine was performed without contrast according to standard protocol. COMPARISON: No prior study is available for comparison at the time of this dictation. FINDINGS: There is trace retrolisthesis of C3 over C4 and anterolisthesis of C7 over T1 vertebral bodies. The cervical alignment is otherwise normal. Vertebral bodies are normal in height without evidence of compression fractures. Other than scattered Modic type II changes, the marrow signal intensity is otherwise unremarkable. The craniocervical junction and visualized portions of the posterior fossa appear normal. The spinal cord appears normal. The anterior and posterior longitudinal ligaments as well as the posterior ligamentous complex appear intact. There is mild disc height loss at multiple levels. No soft tissue abnormality is identified. Normal flow voids are identified in the vertebral arteries. C2-3: There is minimal disc bulge. There is no central canal stenosis. There is mild bilateral facet osteoarthritis. There is mild uncovertebral joint osteoarthritis. There is mild neural foraminal stenosis. C3-4: There is mild disc bulge. Mild hypertrophy of the ligamentum flavum. There is mild central canal stenosis. There is mild bilateral facet osteoarthritis. There is mild to moderate uncovertebral joint osteoarthritis. There is mild bilateral neural foraminal stenosis. C4-5: There is minimal disc bulge. There is no central canal stenosis. There is mild bilateral facet osteoarthritis. There is minimal uncovertebral joint osteoarthritis. There is mild left neural foraminal stenosis. C5-6: There is mild disc bulge, more on the right. There is mild central canal stenosis. There is mild bilateral facet osteoarthritis. There is mild to moderate uncovertebral joint osteoarthritis. There is mild right neural foraminal stenosis. C6-7: There is mild, diffuse disc bulge with superimposed right paracentral/right foraminal disc protrusion. There is mild central canal stenosis. There is mild bilateral facet osteoarthritis. There is mild uncovertebral joint osteoarthritis. There is mild bilateral neural foraminal stenosis. C7-T1: There is minimal disc bulge. There is no central canal stenosis. There is mild bilateral facet osteoarthritis. There is minimal uncovertebral joint osteoarthritis. There is mild left neural foraminal stenosis. There is a small perineural cyst on the left side. Procedure Note Ankush Simpson MD - 2024 PROCEDURE: MRI CERVICAL SPINE WO CONTRAST, DATE/TIME OF EXAM:02/21/2024 12:16 PM, LOCATION [facility] INDICATION: M54.12: Cervical radiculopathy at C8 M47.812: Cervical spondylosis ADDITIONAL CLINICAL INFORMATION: Ordering Provider Reason For Exam: Left C8 ardiculopathy Technologist Note: None. Additional: None. EXAMINATION: MRI of the cervical spine without contrast HISTORY: M54.12: Cervical radiculopathy at C8 M47.812: Cervicalspondylosis TECHNIQUE: MRI of the cervical spine was performed without contrast according to standard protocol. COMPARISON: No prior study is available for comparison at the time ofthis dictation. FINDINGS: There is trace retrolisthesis of C3 over C4 and anterolisthesis of C7over T1 vertebral bodies. The cervical alignment is otherwise normal.Vertebral bodies are normal in height without evidence of compression fractures. Other than scattered Modic type II changes, the marrow signal intensityis otherwise unremarkable. The craniocervical junction and visualizedportions of the posterior fossa appear normal. The spinal cord appears normal.The anterior and posterior longitudinal ligaments as well as the posterior ligamentous complex appear intact. There is mild disc height loss at multiple levels. No soft tissue abnormality is identified. Normal flow voids are identified in the vertebral arteries. C2-3: There is minimal disc bulge. There is no central canal stenosis. There is mild bilateral facet osteoarthritis. There is milduncovertebral joint osteoarthritis. There is mild neural foraminal stenosis. C3-4: There is mild disc bulge. Mild hypertrophy of the ligamentumflavum. There is mild central canal stenosis. There is mild bilateral facet osteoarthritis. There is mild to moderate uncovertebral joint osteoarthritis. There is mild bilateral neural foraminal stenosis. C4-5: There is minimal disc bulge. There is no central canal stenosis. There is mild bilateral facet osteoarthritis. There is minimal uncovertebral joint osteoarthritis. There is mild left neural foraminal stenosis. C5-6: There is mild disc bulge, more on the right. There is mild central canal stenosis. There is mild bilateral facet osteoarthritis. There ismild to moderate uncovertebral joint osteoarthritis. There is mild rightneural foraminal stenosis. C6-7: There is mild, diffuse disc bulge with superimposed right paracentral/right foraminal disc protrusion. There is mild central canal stenosis. There is mild bilateral facet osteoarthritis. There is mild uncovertebral joint osteoarthritis. There is mild bilateral neural foraminal stenosis. C7-T1: There is minimal disc bulge. There is no central canal stenosis. There is mild bilateral facet osteoarthritis. There is minimal uncovertebral joint osteoarthritis. There is mild left neural foraminal stenosis. There is a small perineural cyst on the left side. IMPRESSION: 1.Multilevel degenerative disc and joint disease of the cervical spineas detailed level by level above. 2.No high-grade spinal canal stenosis at any level. 3.Varying degrees of neural foraminal stenoses as outlined. This study was dictated by residential assistant Prosper Mcgee MD and reviewed and edited by the attending. IAnkush MD have personally reviewed and interpretedthis examination/study. > Interpreting Provider: Ankush Simpson MD on 2024 2:11 PM Barbara Liao PA-C MR ORDERABLES from Last 3 Months Care Teams Sanitary Engineer Relationship Specialty Start Date End Date Provider, No Pcp PCP - General 01/01/24
--- OUTSIDE RECORDS SUMMARY | 2024-05-22 11:49 | XMS_ITS | Patient Health Summary ---
Author Organization [facility] Address [address] [place] [address] Care Team Providers Care Miscellaneous Machine Operator Name Role Phone Provider, No Pcp Primary Care Provider Unavailab le Note from [facility],non-owned Affiliates and Associated Physician Practices is amultiple site organization consisting of ambulatory clinics and hospital sitesin [place], [place], [place] and [place]. This disclosure is being madepursuant to the Care Everywhere program and may not contain all information available regarding this patient. Last updated 18.[facility] [employer] Allergies No known active allergies Medications * Be aware that medications may not be up to date on this document. Alwaysverify current medications with the patient. * warfarin (Coumadin) 7.5 MG tablet Take 1 (one) tablet by mouth once daily * warfarin (Coumadin) 5 MG tablet Take 1 (one) tablet by mouth once daily * atorvastatin (Lipitor) 20 MG tablet Take 1 (one) tablet by mouth once daily * chlorthalidone (Hygroton) 25 MG tablet Take 1 (one) tablet by mouth once daily * carvedilol (Coreg) 25 MG tablet Take 0.5 (one-half) tablet by mouth 2 times daily * amLODIPine (Norvasc) 10 MG tablet Take 1 (one) tablet by mouth once daily * vitamin D, ergocalciferol, (Drisdol) 1.25 MG (25453 UT) capsule Take 1 (one) capsule by mouth Active Problems No known active problems Social History Tobacco Use Types Packs/Day Years [...] Comments Blood Pressure 179/90 03/04/2024 1:25 PM FOOD AND BEVERAGE CHECKER Pulse - - Temperature - - Respiratory Rate - - Oxygen Saturation - - Inhaled Oxygen Concentration - - Weight 61.2 kg (135 lb) 04/10/2024 12:25 PM FOOD AND BEVERAGE CHECKER Height 154.9 cm (5' 1 ) 03/04/2024 1:25 PM FOOD AND BEVERAGE CHECKER Body Mass Index 25.51 03/04/2024 1:25 PM FOOD AND BEVERAGE CHECKER Procedures * GA DRAIN INJ MAJOR JOINT BURSA W US(Performed 03/04/2024) Performed for Osteoarthritis of left glenohumeral joint * MRI CERVICAL SPINE WO CONTRAST(Performed 02/21/2024) Performed for Cervical radiculopathy at C8, Cervical spondylosis * XR CERVICAL SPINE 2 OR 3VW(Performed 01/10/2024) Performed for Cervical spondylosis, Cervical radiculopathy at C8 * GA DRAIN/INJECT LARGE JOINT/BURSA(Performed 11/15/2023) Performed for Shoulder arthritis, Rotator cuff arthropathy, left * XR SHOULDER LEFT 2VW OR MORE(Performed 11/15/2023) Performed for Left shoulder pain, unspecified chronicity Results * GA DRAIN INJ MAJOR JOINT BURSA W US (03/04/2024 1:32 PM FOOD AND BEVERAGE CHECKER) Narrative Harvinder Kaur MD - 03/04/2024 1:32 PM FOOD AND BEVERAGE CHECKER Harvinder Kaur MD ? 03/05/2024 11:05 AM [...] as outlined. This study was dictated by president ceo & founder Prosper Mcgee MD and reviewed and edited by the attending. IAnkush MD have personally reviewed and interpreted this examination/study. > Interpreting Provider: Ankush Simpson MD on 2024 2:11 PM Narrative 2024 2:11 PM CDT PROCEDURE: ??MRI CERVICAL SPINE WO CONTRAST, DATE/TIME OF EXAM: ??02/21/2024 12:16 PM, LOCATION ??[facility] INDICATION: M54.12: Cervical radiculopathy at C8 [...] CONTRAST, DATE/TIME OF EXAM:02/21/2024 12:16 PM, LOCATION [facility] INDICATION: M54.12: Cervical radiculopathy at C8 [...] as outlined. This study was dictated by president ceo & founder Prosper Mcgee MD and reviewed and edited by the attending. Ankush Huerta MD have personally reviewed and interpretedthis examination/study. > Interpreting Provider: Ankush Simpson MD on 2024 2:11 PM Barbara Mark Liao PA-C MR ORDERABLES * XR Cervical Spine 2 or 3Vw (01/10/2024 1:31 PM CDT) Anatomical Region Laterality Modality Spine Radiographic Ana ging 01/10/2024 2:40 PM CDT Impressions 01/10/2024 2:49 PM CDT IMPRESSION: Mild multilevel degenerative disc and joint disease. Report dictated by Stanley Nation MD (president ceo & founder). Harry Huerta MD have personally reviewed and interpreted this examination/study. > Interpreting Provider: Harry Berkowitz MD on 01/10/2024 2:49 PM Narrative 01/10/2024 2:49 PM CDT PROCEDURE: ??XR CERVICAL SPINE 2 OR 3VW, DATE/TIME OF EXAM: ??01/10/2024 1:31 PM, LOCATION ??[facility] INDICATION: M47.812: Cervical spondylosis M54.12: Cervical radiculopathy at C8 ADDITIONAL CLINICAL INFORMATION: Ordering Provider Reason For Exam: ??neck pain and C8 radiculopathy Technologist Note: Additional: COMPARISON: None. FINDINGS: The cervical lordosis is maintained. There is 3 mm retrolisthesis at C3-4. There is mild disc space narrowing at C2-3, C3-4, and C5-6. There is mild facet and uncovertebral degeneration. No fracture is seen. Procedure Note Harry Berkowitz MD - 01/10/2024 PROCEDURE: XR CERVICAL SPINE 2 OR 3VW, DATE/TIME OF EXAM: 41:31 PM, LOCATION [facility] INDICATION: M47.812: Cervical spondylosis M54.12: Cervical radiculopathy at C8 ADDITIONAL CLINICAL INFORMATION: Ordering Provider Reason For Exam: neck pain and C8 radiculopathy Technologist Note: Additional: COMPARISON: None. FINDINGS: The cervical lordosis is maintained. There is 3 mm retrolisthesis atC3-4. There is mild disc space narrowing at C2-3, C3-4, and C5-6. There ismild facet and uncovertebral degeneration. No fracture is seen. IMPRESSION: Mild multilevel degenerative disc and joint disease. Report dictated by Stanley Nation MD (president ceo & founder). I, Harry Berkowitz MD have personally reviewed and interpreted this examination/study. > Interpreting Provider: Harry Berkowitz MD on 01/10/2024 2:49 PM Barbara Liao PA-C DIAGNOSTIC IMAGING ORDERABLES * GA DRAIN/INJECT LARGE JOINT/BURSA (11/15/2023 1:29 PM CDT) Narrative Barbara Liao PA-C - 11/15/2023 1:29 PM CDT Barbara Liao PA-C ? 11/19/2023 ??9:57 AM Diagnosis: Left Shoulder Arthritis / Rotator Cuff Tendinopathy After risks, benefits, alternatives were discussed, the patient elected to proceed forward with corticosteroid injection. The appropriate site and side was confirmed with the patient. The left shoulder was prepped with betadine and alcohol. Ethyl Chloride was used to anesthetize the skin. A combination of 6 cc of 0.2% ropivacaine and 2 cc of 80 mg triamcinolone acetonide was injected into the subacromial space off the lateral aspect of the acromion. A sterile bandage was placed. The patient tolerated the procedure well without complications. Barbara Liao PA-C Barbara Liao PA-C PROCEDURE/MINOR ANETTE GICAL ORDERABLES * XR SHOULDER LEFT 2VW OR MORE (11/15/2023 12:52 PM CDT) Anatomical Region Laterality Modality Upper Extremity Radiographic Ana ging 11/15/2023 1:25 PM CDT Impressions 11/15/2023 1:27 PM CDT IMPRESSION: Severe narrowing of the acromiohumeral articulation suggesting chronic rotator cuff degeneration and/or tear with associated arthritic changes as described. > Interpreting Provider: Manuel Manley MD on 11/15/2023 1:27 PM Narrative 11/15/2023 1:27 PM CDT PROCEDURE: ??XR SHOULDER LEFT 2VW OR MORE DATE/TIME OF EXAM: ??11/15/2023 12:52 PM CLINICAL INFORMATION: None relevant/not provided if blank. Indication: M25.512: Left shoulder pain, unspecified chronicity Additional History: COMPARISON: None. FINDINGS: 3 views of the left shoulder were obtained to include AP internal and external rotation and axillary views. There is severe narrowing of the acromiohumeral articulation with mild arthritic changes seen on both sides of the articulation to include sclerotic changes as well as early spurring. The humeral head does maintain anatomic relationship to the acromion and glenoid. There also appears to be a mild degree of spurring of the inferior aspect of the distal left clavicle at the level of the left acromioclavicular joint and the inferior aspect of the glenohumeral articulation. Procedure Note Manuel Manley MD - 11/15/2023 PROCEDURE: XR SHOULDER LEFT 2VW OR MORE DATE/TIME OF EXAM: 11/15/2023 12:52 PM CLINICAL INFORMATION: None relevant/not provided if blank. Indication: M25.512: Left shoulder pain, unspecified chronicity Additional History: COMPARISON: None. FINDINGS: 3 views of the left shoulder were obtained to include APinternal and external rotation and axillary views. There is severe narrowing ofthe acromiohumeral articulation with mild arthritic changes seen on bothsides of the articulation to include sclerotic changes as well as earlyspurring. The humeral head does maintain anatomic relationship to the acromion and glenoid. There also appears to be a mild degree of spurring of theinferior aspect of the distal left clavicle at the level of the left acromioclavicular joint and the inferior aspect of the glenohumeral articulation. IMPRESSION: Severe narrowing of the acromiohumeral articulationsuggesting chronic rotator cuff degeneration and/or tear with associated arthritic changes as described. > Interpreting Provider: Manuel Manley MD on 11/15/2023 1:27 PM Barbara Liao PA-C DIAGNOSTIC IMAGING ORDERABLES Care Teams Miscellaneous Machine Operator Relationship Specialty Start Date End Date Provider, No Pcp PCP - General 01/01/24
--- OUTSIDE RECORDS SUMMARY | 2024-05-22 11:49 | XMS_ITS | CONTINUITY OF CARE DOCUMENT ---
Author Name brea, brea Address Unknown Organization [facility] Address [address] [place] [address] Phone [phone] Care Team Providers Care Dsp Engineer Name Role Phone Lul Moreno MD Unavailable TYLER SANTOS MD Unavailable TYLER SANTOS MD Unavailable PROBLEMS Condition Status Date Provider Notes assisted anticoagulant therapy active Jessica Maciel RN CAD STENT-09/24 CATH TAXUS TO CIRC, DIFFUSE LAD DISEASE, nl stress nuc 05/10 active Castro Mojica MD Hyperlipidemia active Lul Moreno MD SYNDROME, VERTEBROBASILAR ARTERY, on coumadin active Castro Mojica MD HTN-01/30 NUC EF 55 -11/26 ST RESS EF [address] ST DEPRESSIONL completed - Castro Mojica MD HYPERTENSION-11/27 CAROTID NE G, 09/27 SALOMON NEG completed - Castro Mojica MD HTN ESSENTIAL-10/30 ECHO EF 65 active ? Castro Mojica MD Family History of Hypertension: completed - To delaney Mojica MD PVD with claudication Abnl SALOMON active Delia Mojica MD Snoring completed - Castro Mojica MD Examination, preoperative cardiovascular completed - Castro Mojica MD MINDI active Lul Moreno MD Cigarette smoker active Bethany Ankur ARTHRITIS active Castro Mojica MD Family History of Hypertension: completed - To delaney Mojica MD HTN-11/27 ECHO-EF 65-70, TRIC US REGURG PA 28 completed - Castro Mojica MD ENCOUNTERS Date Type Provider Location Encounter Diag nosis - In-person encounter Office Visit Lul Moreno MD [facility] - In-person encounter Office Visit Lul Moreno MD [facility] - In-person encounter Office Visit Lul Moreno MD [facility] - In-person encounter Office Visit Lul Moreno MD [facility] - In-person encounter Office Visit Lul Moreno MD [facility] - In-person encounter Office Visit Lul Moreno MD [facility] - In-person encounter Office Visit Lul Moreno MD [facility] - In-person encounter Office Visit Lul Moreno MD [facility] MINDI - In-person encounter Office Visit Lul Moreno MD [facility] - In-person encounter Office Visit Lul Moreno MD [facility] - In-person encounter Office Visit Castro Mojica MD [facility] CAD STENT-09/24 CATH TAXUS TO CIRC, DIFFUSE LAD DISEASE, nl stress nuc 05/10HTN-11/27 ECHO-EF 65-70, TRICUS REGURG PA 28SYNDROME, VERTEBROBASILAR ARTERY, on coumadinHTN-01/30 NUC EF 55 -11/[address] DEPRESSIONLHYPERTENSION-11/27 CAROTID NEG, 09/27 SALOMON NEGFamily History of Hypertension:Family History of Hypertension:PVD with claudication Abnl ABISnoringExamination, preoperative cardiovascularOSACigarette smokerARTHRITIS - In-person encounter Office Visit Lul Moreno MD [facility] HyperlipidemiaPVD with claudication Abnl SALOMON - In-person encounter Office Visit Castro Mojica MD [facility] - In-person encounter Office Visit Castro Mojica MD [facility] HTN ESSENTIAL-10/30 ECHO EF 65 - In-person encounter Office Visit Castro Mojica MD [facility] - In-person encounter Office Visit Castro Mojica MD [facility] - In-person encounter Office Visit Castro Mojica MD [facility] Hyperlipidemia - In-person encounter Office Visit Castro Mojica MD [facility] HTN-01/30 NUC EF 55 -11/[address] DEPRESSIONL VITAL SIGNS Date Observation Value Provider Body Mass Index (Ratio) 25.97 kg/m2 Mikey Moreno MD blood pressure, cuff size regular Ke [facility] blood pressure, diastolic 72 mm[Hg] Ke rri Bela blood pressure, systolic 140 mm[Hg] Rhonda Cramer oxygen saturation, oximetry 98 % Corine Lazo pulse rate 66 /min Corine Maloney [facility] weight E&M 133 [lb_av] Corine Maloney [facility] height E&M 60 [in_i] Corine Maloney [facility] Body Mass Index (Ratio) 27.53 kg/m2 Mikey Moreno MD blood pressure, cuff size regular Ja rret blood pressure, diastolic 81 mm[Hg] Ja rret blood pressure, systolic 157 mm[Hg] Jar ret pulse rate 69 /min Luis F respiratory rate E&M 14 /min [facility] oxygen saturation, oximetry 96 % [facility] weight E&M 141 [lb_av] Luis F height E&M 60 [in_i] [facility] Body Mass Index (Ratio) 27.14 kg/m2 Mikey Moreno MD blood pressure, diastolic 84 mm[Hg] Li nkLog blood pressure, systolic 153 mm[Hg] Clara kLog blood pressure, cuff size regular Ja fabio blood pressure, diastolic 70 mm[Hg] Ra rabia Moreno MD blood pressure, systolic 135 mm[Hg] Jadon Moreno MD pulse rate 69 /min [facility] weight E&M 139 [lb_av] [facility] respiratory rate E&M 12 /min [facility] oxygen saturation, oximetry 96 % [facility] height E&M 60 [in_i] [facility] Body Mass Index (Ratio) 27.14 kg/m2 Mikey Moreno MD blood pressure, diastolic 89 mm[Hg] An franklin Maciel blood pressure, systolic 169 mm[Hg] Sisi Maciel oxygen saturation, oximetry 98 % Shalini Maciel pulse rate 71 /min Shalini Maciel blood pressure, cuff size large An franklin Maciel weight E&M 139 [lb_av] Shalini Maciel height E&M 60 [in_i] Shalini Maciel Body Mass Index (Ratio) 27.38 kg/m2 Mikey Moreno MD blood pressure, diastolic 89 mm[Hg] [facility] blood pressure, systolic 168 mm[Hg] Marcia varma Sergio oxygen saturation, oximetry 98 % Annelise Hill pulse rate 70 /min Annelise Hill respiratory rate E&M 16 /min Annelise Reese amparo weight E&M 140.2 [lb_av] Annelise Sergio height E&M 60 [in_i] Annelise Sergio Body Mass Index (Ratio) 27.73 kg/m2 Mikey Moreno MD blood pressure, diastolic 80 mm[Hg] Norman Contreras blood pressure, systolic 140 mm[Hg] Mami Contreras oxygen saturation, oximetry 94 % Jaret Contreras respiratory rate E&M 16 /min Kimberly Contreras pulse rate 73 /min JaretJulee garcia weight E&M 142.0 [lb_av] Jaret Yayo johnny height E&M 60 [in_i] JaretJulee garcia Body Mass Index (Ratio) 30.46 kg/m2 Mikey Moreno MD blood pressure, diastolic 80 mm[Hg] Morales Beal blood pressure, systolic 171 mm[Hg] Linda michelle Beal pulse rate 77 /min Eli Christopherbel l oxygen saturation, oximetry 93 % Eli Beal respiratory rate E&M 16 /min Eli Beal blood pressure, cuff size regular Cy nthia Beal weight E&M 156 [lb_av] Eli Campbel l height E&M 60 [in_i] Eli Campbel l Body Mass Index (Ratio) 30.85 kg/m2 Mikey Moreno MD blood pressure, diastolic 85 mm[Hg] Norman Contreras blood pressure, systolic 161 mm[Hg] Mami Contreras oxygen saturation, oximetry 95 % Jaret Contreras respiratory rate E&M 18 /min Kimberly Contreras pulse rate 75 /min Jaret garcia weight E&M 158 [lb_av] Jaret garcia height E&M 60 [in_i] Jaret Holman kalee Body Mass Index (Ratio) 30.85 kg/m2 Mikey Moreno MD blood pressure, diastolic 70 mm[Hg] Da rahul Lizette blood pressure, systolic 132 mm[Hg] Dac ia Lizette oxygen saturation, oximetry 93 % Subha Lizette respiratory rate E&M 16 /min Subha V oss pulse rate 70 /min Subha Lizette weight E&M 158 [lb_av] Subha Lizette height E&M 60 [in_i] Subha Lizette Body Mass Index (Ratio) 30.46 kg/m2 Mikey Moreno MD pulse rate 76 /min [facility] oxygen saturation, oximetry 96 % Pedro [facility] blood pressure, diastolic 80 mm[Hg] Joe [facility] blood pressure, systolic 150 mm[Hg] Silvana ren [facility] respiratory rate E&M 16 /min Pedro [facility] weight E&M 156 [lb_av] [facility] height E&M 60 [in_i] [facility] Body Mass Index (Ratio) 31.83 kg/m2 Dillon Mojica MD blood pressure, cuff size regular Ke rri [place] blood pressure, diastolic 77 mm[Hg] Ke rri [place] blood pressure, systolic 164 mm[Hg] Ker ri [place] oxygen saturation, oximetry 96 % Corine Lazo respiratory rate E&M 20 /min Corine G roshannfdawit pulse rate 78 /min Corine Haider emer weight E&M 163 [lb_av] Corine Haider er height E&M 60 [in_i] Corine Maloney er Body Mass Index (Ratio) 32.14 kg/m2 Mikey Moreno MD blood pressure, resting Yes Henrietta Ladd Contreras blood pressure, diastolic 88 mm[Hg] Norman Ansari Contreras blood pressure, systolic 180 mm[Hg] Mami Contreras oxygen saturation, oximetry 92 % Jaret Contreras respiratory rate E&M 18 /min Kimberly orellana Contreras pulse rate 72 /min Jaret Holman [place] weight E&M 164.6 [lb_av] Jaret lomelion height E&M 60 [in_i] Jaret Holman kalee Body Mass Index (Ratio) 29.40 kg/m2 Méndez i [place] blood pressure, diastolic 84 mm[Hg] Carlos Lazo blood pressure, systolic 155 mm[Hg] Rhonda ri [place] pulse rate 69 /min Corine Maloney er oxygen saturation, oximetry 95 % Corine Lazo respiratory rate E&M 16 /min Corine fong weight E&M 150 [lb_av] Corine Maloney er height E&M 60 [in_i] Corine Cristye er blood pressure, diastolic 80 mm[Hg] [place] blood pressure, systolic 152 mm[Hg] Thomas Perez pulse rate 77 /min Yessica Perez oxygen saturation, oximetry 97 % Yessica Perez respiratory rate E&M 16 /min Yessica Perez weight E&M 144 [lb_av] Yessica Perez blood pressure, diastolic 80 mm[Hg] Yevgeniy amaral Michele blood pressure, systolic 163 mm[Hg] Star trejo Michele pulse rate 70 /min Ava Bautista oxygen saturation, oximetry 94 % Ava Bautista respiratory rate E&M 16 /min Joo Bautista weight E&M 145 [lb_av] Ava Bautista blood pressure, diastolic 77 mm[Hg] Jone Ling RN blood pressure, systolic 138 mm[Hg] Rex Ling RN pulse rate 67 /min Rex Ling RN oxygen saturation, oximetry 96 % Rex Ling RN respiratory rate E&M 18 /min Rex alexander RN weight E&M 153 [lb_av] Rex Ling RN blood pressure, diastolic 87 mm[Hg] Jone Ling RN blood pressure, systolic 174 mm[Hg] Rex Ling RN pulse rate 71 /min Rex Ling RN oxygen saturation, oximetry 97 % Rex Ling RN respiratory rate E&M 20 /min Rex alexander RN weight E&M 160 [lb_av] Rex Ling RN blood pressure, diastolic 103 mm[Hg] Jone Ling RN blood pressure, systolic 173 mm[Hg] Rex Ling RN pulse rate 83 /min Rex Ling RN oxygen saturation, oximetry 98 % Rex Ling RN respiratory rate E&M 20 /min Rex alexander RN weight E&M 159 [lb_av] Rex Ling RN ALLERGIES Allergy Name Onset Date Reaction Criticality Status ASA Low Criticality active KEFLEX Low Criticality active PENICILLIN Low Criticality active CODEINE Low Criticality active RESULTS Date Observation Value Provider Reference Range Interpretation Location coagulation managed by Rex Ling RN Rex Sushil FRENCH international normalized ratio (INR) 2.4 Rex Ling RN Normal prothrombin time (patient) 28.6 s Rex Ling RN coagulation managed by Rex Ling RN international normalized ratio (INR) 1.9 Rex Ling RN Normal prothrombin time (patient) 23.3 s Rex Ling RN coagulation managed by Rex Ling RN international normalized ratio (INR) 1.9 Rex Ling RN Normal prothrombin time (patient) 22.4 s Rex Ling RN coagulation managed by Rex Ling RN international normalized ratio (INR) 2.7 Rex Ling RN Normal prothrombin time (patient) 32.9 s Rex Ling RN coagulation managed by Jessica Maciel RN international normalized ratio (INR) 3.0 Jessica Maciel RN Normal prothrombin time (patient) 35.73 s Jessica Maciel RN coagulation managed by Jessica Maceil RN international normalized ratio (INR) 1.8 Jessica Maciel RN Normal prothrombin time (patient) 21.7 s Jessica Maciel RN coagulation managed by Jessica Maciel RN prothrombin time (patient) 17.3 s Jessica Maciel RN international normalized ratio (INR) 1.4 Jessica Maciel RN Normal coagulation managed by Jessica Maciel RN international normalized ratio (INR) 2.0 Jessica Maciel RN Normal coagulation managed by Rex Ling RN international normalized ratio (INR) 1.2 Rex Ling RN Normal prothrombin time (patient) 14.3 s Rex Ling RN coagulation managed by Rex Caceress RN Rex Ling RN international normalized ratio (INR) 1.7 Rex Ling RN Normal prothrombin time (patient) 20.4 s Rex Ling RN coagulation managed by Rex Caceress RN Rex Caceress RN international normalized ratio (INR) 3.6 Rex Ling RN Normal prothrombin time (patient) 43.2 s Rex Ling RN coagulation managed by Rex Caceress RN Rex Caceress RN international normalized ratio (INR) 2.7 Rex Ling RN Normal prothrombin time (patient) 32.1 s Rex Ling RN coagulation managed by Rex Caceresletitia FRENCH Rex Ling RN international normalized ratio (INR) 3.4 Rex Ling RN Normal prothrombin time (patient) 40.3 s Rex Ling RN coagulation managed by Jessica Maciel RN prothrombin time (patient) 29.3 s Jessica Maciel RN international normalized ratio (INR) 2.5 Jessica Maciel RN Normal coagulation managed by Rex Ling RN Rex Caceress RN international normalized ratio (INR) 2.6 Rex Ling RN Normal prothrombin time (patient) 30.7 s Rex Ling RN coagulation managed by Jessica Maciel RN international normalized ratio (INR) 1.5 Jessica Maciel RN Normal prothrombin time (patient) 18.2 s Jessica Maciel RN prothrombin time (patient) 15.9 s [employer] 9.1-12.0 High international normalized ratio (INR) 1.6 [employer] 0.8-1.2 High lipoprotein, beta, serum, point, quantitative, calculated 116 mg/dL [facility] 0-99 High very low density lipoproteins 37 mg/dL [facility] 5-40 HDL cholesterol, serum 47 mg/dL [facility] >39 triglyceride, serum, random 184 mg/dL [facility] 0-149 High cholesterol, serum 200 mg/dL [facility] 100-199 High calcium, serum 9.9 mg/dL [facility] 8.7-10.3 carbon dioxide, venous blood 24 mmol/L [employer] 18-29 chloride, serum 101 mmol/L [employer] 96-106 potassium, serum 4.3 mmol/L [employer] 3.5-5.2 sodium, serum 141 mmol/L [employer] 600-167 4365/03/ 03 urea nitrogen/creatini ne ratio, serum 14 [employer] 12-28 eGFR if not 76 mL/min/{1.73 _m2} [employer] >59 creatinine, serum 0.80 mg/dL [facility] 0.57-1.00 urea nitrogen, blood 11 mg/dL [facility] 8-27 blood glucose, random 140 mg/dL [facility] 65-99 High basophil count, absolute 0.0 x10E3/uL [employer] 0.0-0.2 Eosinophil Absolute Count 0.1 X10E3/UL [employer] 0.0-0.4 monocyte count, blood, automated 0.4 X10E3/UL [employer] 0.1-0.9 lymphocyte count, blood, automated 3.1 X10E3/UL [employer] 0.7-3.1 Absolute Neutrophils 3.0 X10E3/UL [employer] 1.4-7.0 basophils as percent of blood leukocytes 1 % [employer] Not Estab. eosinophils as percent of blood leukocytes 1 % [employer] Not Estab. monocytes as percent of blood leukocytes 6 % [employer] Not Estab. lymphocytes as percent of blood leukocytes 47 % [employer] Not Estab. neutrophils as percent of blood leukocytes 45 % [employer] Not Estab. platelet count 345 X10E3/UL [employer] [phone]/03/ 03 red blood cell distribution width 14.2 % [employer] 12.3-15.4 mean corpuscular hemoglobin concentration, RBC 33.7 G/DL [facility] 31.5-35.7 mean corpuscular hemoglobin, RBC 29.4 pg [employer] 26.6-33.0 mean corpuscular volume, RBC 87 fL [employer] 79-97 hematocrit, blood 42.1 % [facility] 34.0-46.6 hemoglobin, blood 14.2 g/dL [employer] 11.1-15.9 erythrocyte (RBC) count 4.83 X10E6/UL [employer] 3.77-5.28 leukocyte count, blood 6.6 X10E3/UL [employer] 3.4-10.8 lipoprotein, beta, serum, point, quantitative, calculated 85 mg/dL [facility] 0-99 very low density lipoproteins 64 mg/dL [facility] 5-40 High HDL cholesterol, serum 48 mg/dL [facility] >39 triglyceride, serum, random 322 mg/dL [facility] 0-149 High cholesterol, serum 197 mg/dL [facility] [phone]/01/ 10 prothrombin time (patient) 21.9 s [employer] 9.1-12.0 High international normalized ratio (INR) 2.2 [employer] 0.8-1.2 High calcium, serum 9.9 mg/dL [employer] 8.7-10.3 carbon dioxide, venous blood 26 mmol/L [employer] 18-29 chloride, serum 104 mmol/L [employer] 96-106 potassium, serum 4.4 mmol/L [employer] 3.5-5.2 sodium, serum 144 mmol/L [employer] 307-113 6289/01/ 10 urea nitrogen/creatini ne ratio, serum 17 [employer] 12-28 eGFR if not 91 mL/min/{1.73 _m2} [employer] >59 creatinine, serum 0.66 mg/dL [facility] 0.57-1.00 urea nitrogen, blood 11 mg/dL [facility] 8-27 blood glucose, random 115 mg/dL [facility] 65-99 High basophil count, absolute 0.0 x10E3/uL [employer] 0.0-0.2 Eosinophil Absolute Count 0.1 X10E3/UL [employer] 0.0-0.4 monocyte count, blood, automated 0.5 X10E3/UL [employer] 0.1-0.9 lymphocyte count, blood, automated 3.3 X10E3/UL [employer] 0.7-3.1 High Absolute Neutrophils 4.3 X10E3/UL [employer] 1.4-7.0 basophils as percent of blood leukocytes 0 % [employer] Not Estab. eosinophils as percent of blood leukocytes 2 % [employer] Not Estab. monocytes as percent of blood leukocytes 6 % [employer] Not Estab. lymphocytes as percent of blood leukocytes 40 % [employer] Not Estab. neutrophils as percent of blood leukocytes 52 % [employer] Not Estab. platelet count 360 X10E3/UL [employer] [phone]/01/ 10 red blood cell distribution width 14.4 % [employer] 12.3-15.4 mean corpuscular hemoglobin concentration, RBC 32.3 G/DL [facility] 31.5-35.7 mean corpuscular hemoglobin, RBC 28.7 pg [employer] 26.6-33.0 mean corpuscular volume, RBC 89 fL [employer] 79-97 hematocrit, blood 41.2 % [employer] 34.0-46.6 hemoglobin, blood 13.3 g/dL [facility] 11.1-15.9 erythrocyte (RBC) count 4.64 X10E6/UL [employer] 3.77-5.28 leukocyte count, blood 8.2 X10E3/UL [employer] 3.4-10.8 creatinine, serum 0.71 mg/dL Henrietta Galindo RN urea nitrogen, blood 8 mg/dL Henrietta Galindo RN potassium, serum 4.2 mmol/L Henrietta Galindo sodium, serum 141 mmol/L Henrietta Galindo platelet count 337 10*3/uL Henrietta Galindo RN hematocrit, blood 43.9 % Henrietta Galindo RN hemoglobin, blood 13.9 g/dL Henrietta Galindo erythrocyte (RBC) count 4.98 10*6/mm3 Henrietta Galindo RN leukocyte count, blood 7.0 10*3/mm3 Henrietta Galindo GILLIAN HISTORY OF MEDICATION USE Medication Status Instructions Dates Provider Indications Com ments warfarin 5 mg tablet active TAKE 1 TABL ET BY MOUTH EVERY EVENING DIRECTED EXCEPT TAKE 1 AND 1/2 TABLETS (TO EQUAL 7.5 MG) ON SUNDAY, SUNDAY, AND 06/19 Mackenzie Nation RN chlorthalidone 25 mg tablet active take 1 pill a day Corine Lazo warfarin 5 mg tablet completed Take 1 tabl et by mouth every evening as directed EXCEPT Sun/Sun/ Sat take 1.5 tabs to equal 7.5 mg - 06/19 Mackenzie Nation RN warfarin 5 mg tablet completed Take 1 tabl et by mouth every evening as directed EXCEPT Tues and Thurs and Sat take 1 1/2 tablets to = 7 1/2 mg - Jessica Maciel RN warfarin 5 mg tablet completed Take 1 tabl et by mouth every evening as directed EXCEPT Tues and Thurs take 1 1/2 tablets to = 7 1/2 mg 01/02 - Jessica Maciel RN warfarin 5 mg tablet completed Take 1 tabl et by mouth every evening as directed EXCEPT Tues and Thurs take 1 1/2 tab 08/06 - 01/02 Jessica Maciel RN tramadol 50 mg tablet completed - [facility] metformin (Glucophage XR) 500 mg tablet extended release 24 hr completed 1 tablet by mouth once a day - 08/06 [facility] Christiano Low Dose Aspirin 81 mg tablet,delayed release (DR/EC) completed 1 tablet by mouth once a day - 08/08 [facility]CO 7.[facility]-325 MG ORAL TABLET completed Take 1 tablet twice a day as needed 05/16 - 08/08 [facility]miglia [facility] Breo Ellipta 100-25 mcg/dose blister with device active Inhale 1 puff once a day 05/16 Eli Beal carvedilol 25 mg tablet active Take 0.5 tablet twice a day 05/16 Eli Beal cyanocobalamin (vitamin B-12) 1,000 mcg capsule completed Take 1 capsule once a day 07/31 - 08/06 [facility] Daily Value tablet active Take 1 tablet once a day 07/31 Jaret Contreras ascorbic acid (vitamin C) 1,000 mg tablet completed Take 1 tablet once a day 07/31 - 08/06 [facility] CARVEDILOL 12.5 MG ORAL TABLET completed one tab twice a day 05/15 - 05/16 Eli Beal ASPIRIN ADULT LOW DOSE 81 MG ORAL TABLET DELAYED RELEASE completed One Tab By Mouth Daily 06/04 - 05/15 Castro Mojica MD [facility] CONTINUING MONTH MARSHAL 1 MG ORAL TABLET completed One pack. Take as directed - 12/08 Subha Bauer FLUTICASONE PROPIONATE 50 MCG/ACT NASAL SUSPENSION completed 2 sprays in each nostril once daily - 12/08 Jaret Contreras ProAir HFA 90 mcg/actuation HFA aerosol inhaler completed 2 puff every four hours as needed - Corine Lazo RANITIDINE HCL 150 MG ORAL TABLET completed ONE TAB TWICE DAILY - 05/16 Eli Beal atorvastatin 20 mg tablet active once a day Corine Lazo WELLBUTRIN 100 MG ORAL TABLET completed ONE TAB. DAILY 06/07 - 01/08 Rex Ling RN OXYCODONE HCL 5 MG ORAL TABLET completed 1 to 2 tabs every 4 to 6 hours for pain - 01/08 Rex Ling RN TYLENOL ARTHRITIS PAIN CR-TABS completed 11/01 - 12/08 Jaret Contreras FLEXERIL 10 MG TABS completed po bid 11/01 - 06/07 Rex Ling RN ergocalciferol (vitamin D2) 1,250 mcg (50,000 unit) capsule active Take 1 every two weeks Corine Xiesandramojgan BYSTOLIC 10 MG ORAL TABLET completed take one daily 11/01 - 05/15 Castro Mojica MD OMEPRAZOLE 20 MG ORAL CAPSULE DELAYED RELEASE completed ONE TAB. DAILY - 09/29 Rex Ling RN DARVOCET-N 100 TABS completed 1 TAB EVERY 12HRS PRN X 2WKS 12/10 - 09/29 Rex Ling RN METOPROLOL SUCCINATE ER 25 MG ORAL TABLET EXTENDED RELEASE 24 HOUR completed 12/09 - 05/10 Rex Ling RN CRESTOR 10 MG ORAL TABLET completed ONE TAB. DAILY - 05/10 Rex Ling RN HYDROCHLOROTHIAZIDE 12.5 MG ORAL CAPSULE completed ONE TAB. DAILY - 01/08 Rex Ling RN amlodipine 10 mg tablet active once a day Rex Ling RN ASPIRIN 81 MG ORAL TABLET completed ONE TAB. DAILY - 09/29 Rex Ling RN QUALAQUIN 324 MG ORAL CAPSULE completed QD - 06/07 Rex Ling RN FELODIPINE ER 10 MG ORAL TABLET EXTENDED RELEASE 24 HOUR completed QD - 12/09 Rex Ling RN CRESTOR 10 MG ORAL TABLET completed ONE TAB. DAILY - 05/15 Castro Mojica MD QUINAPRIL HCL 40 MG ORAL TABLET completed ONE TAB. DAILY - 12/09 Rex Lnig RN COUMADIN 5 MG ORAL TABLET completed Take 1 1/2 tablet by mouth every evening as directed EXCEPT FOR MON,FRI , and SUN take 1 tablet to = 5 mg - 08/06 Jessica Maciel RN SOCIAL HISTORY Date Observation Value Provider personal history of marijuana use no Shelby Campuzanori SAP DEVELOPER drug use no Shelby Campuzanori SAP DEVELOPER alcohol use no Shelby Campuzanori SAP DEVELOPER passive cigarette sm matias exposure no Shelby Campuzanori SAP DEVELOPER smoking/tobacco cess ation, patient education and counseling yes [place] [employer] DEVELOPER number of years as a smoker 10 years or m ore [place] [employer] DEVELOPER smoking, date started 1981 Shelby Campuzanori SAP DEVELOPER smoking history, tot al pack/year 41 Shelby Campuzanori SAP DEVELOPER smoking history, tot al pack/day 4 Shelby Campuzanori SAP DEVELOPER cigarette use yes Shelby Campuzanori SAP DEVELOPER smoking status Current every day smoker V pasha [place] SAP DEVELOPER drug use no Lul Reese alcohol use no Lul Reese passive cigarette sm matias exposure no Lul Moreno MD smoking/tobacco cess ation, patient education and counseling yes Lul Moreno MD number of years as a smoker 10 years or m ore Lul Moreno MD smoking, date started 1981 Lul Moreno MD smoking history, tot al pack/year 41 Lul Moreno MD smoking history, tot al pack/day 4 Lul Moreno MD cigarette use yes Lul Moreno MD smoking status Current every day smoker R altagracia Moreno MD social history reviewed E&M revi ewed - no changes required Lul Moreno MD smoking history, tot al pack/year 41 Bethany Pascual drug use no Amberly Ventimig geneva [employer] alcohol use no Amberly Ventimig geneva [employer] physical exercise, frequency, days per week yes Shalini Maciel caffeine use, averag e drinks per day yes Shalini Maciel passive cigarette sm matias exposure no Shalini Raheem number of years as a smoker 10 years or m ore Shalini Raheem smoking, date started 1981 Shalini iraheta smoking history, tot al pack/year 35 Shalini Maciel smoking history, tot al pack/day 4 Amberly Roe [facility] cigarette use yes Shalini Raheem smoking status Current every day smoker A janette Roe [facility] social history E&M Marital Statu s: L darcy with family/friends E thnicity: Smoking History: P atjase is a former smoker. Lul Moreno MD social history reviewed E&M revi ewed - no changes required Lul Moreno MD physical exercise, frequency, days per week yes Annelise Hill caffeine use, averag e drinks per day yes Annelise Hill passive cigarette sm matias exposure no Annelise Hill number of years as a smoker 10 years or m ore Annelise Hill smoking, date started 1981 Annelise Hill smoking history, tot al pack/year 35 Annelise Hill smoking history, tot al pack/day 1/2 Annelise Hill cigarette use yes Annelise Hill smoking status Former smoker Annelise Hill social history E&M Marital Statu s: L darcy with family/friends E thnicity: Smoking History: P genet is a former smoker. Lul Moreno MD social history reviewed E&M revi ewed - no changes required Lul Moreno MD physical exercise, frequency, days per week yes Jaret Contreras caffeine use, averag e drinks per day yes Jaret Contreras passive cigarette sm matias exposure no Jaret Contreras number of years as a smoker 10 years or m ore Jaret Contreras smoking, date started 1981 Yong Contreras smoking history, tot al pack/year 35 Jaret Contreras smoking history, tot al pack/day 1/2 Jaret Contreras cigarette use yes Jaret turner smoking status Former smoker Jaret Gupta social history E&M Marital Statu s: L darcy with family/friends E thnicity: Smoking History: P genet is a former smoker. Lul Moreno MD social history reviewed E&M revi ewed - no changes required Lul Moreno MD physical exercise, frequency, days per week yes Eli Beal caffeine use, averag e drinks per day yes Eli Beal passive cigarette sm matias exposure no Eli Beal number of years as a smoker 10 years or m ore Eli Emigdio smoking, date started 1981 Anthony Beal smoking history, tot al pack/year 35 Eli Beal smoking history, tot al pack/day 1/2 Eli Beal cigarette use yes Eli Carmine hager smoking status Former smoker Eli Christopher iniguez social history E&M Marital Statu s: L darcy with family/friends E thnicity: Smoking History: Marty de león is a former smoker. Lul Moreno MD social history reviewed E&M revi ewed - no changes required Lul Moreno MD physical exercise, frequency, days per week yes Jaret Contreras caffeine use, averag e drinks per day yes Jaret Contreras passive cigarette sm matias exposure no Jaret Contreras number of years as a smoker 10 years or m ore Jaretmarvin Contreras smoking, date started 1981 Yong murdock Contreras smoking history, tot al pack/year 35 Jaret Contreras smoking history, tot al pack/day 1/2 Jaret Contreras cigarette use yes Jaret turner smoking status Former smoker Jaret Gupta social history E&M Marital Statu s: L darcy with family/friends E thnicity: Smoking History: P atjase currently smokes every day. P genet has been counseled to quit. Lul Moreno MD social history reviewed E&M revi ewed - no changes required Lul Moreno MD physical exercise, frequency, days per week yes Subha Lizette alcohol use, average drinks per day social basis only Subha Lizette alcohol use no Subha Lizette caffeine use, averag e drinks per day yes Subha Lizette drug use no Subha Lizette smoking/tobacco cess ation, patient education and counseling yes Subha Lizette passive cigarette sm matias exposure no Subha Lizette number of years as a smoker 10 years or m ore [facility] smoking, date started 1981 Subha Lizette smoking history, tot al pack/year 35 Subha Lizette smoking history, tot al pack/day 1/2 Lul Moreno MD cigarette use yes Subha Lizette smoking status Current every day smoker D ia Lizette social history reviewed E&M revi ewed - no changes required Lul Moreno MD social history reviewed E&M revi ewed - no changes required Castro Mojica MD physical exercise, frequency, days per week yes Corine Lazo alcohol use, average drinks per day social basis only Corine Lazo alcohol use no Corine scott caffeine use, averag e drinks per day yes Corine Lazo drug use no Corine Maloney tyler smoking/tobacco cess ation, patient education and counseling yes Corine Munizdawit passive cigarette sm matias exposure no Corine Munizsadiqmojgan number of years as a smoker 10 years or m ore Corine Xiedominic smoking, date started 1981 Corine Xiedominic smoking history, tot al pack/year 35 Corine Munizsadiqmojgan smoking history, tot al pack/day 3 Corine Xiedominic cigarette use yes Corine pastor smoking status current every day smoker Silvana zhong Clifton social history E&M Marital Statu s: L darcy with family/friends E thnicity: Smoking History: P genet currently smokes every day. P atjase has been counseled to quit. Lul Moreno MD social history reviewed E&M revi ewed - no changes required Lul Moreno MD physical exercise, frequency, days per week yes Jaret Contreras alcohol use, average drinks per day social basis only Jaret Contreras alcohol use no Jaret garcia caffeine use, averag e drinks per day yes Jaret Contreras drug use no Jaret garcia smoking/tobacco cess ation, patient education and counseling yes Jaret Contreras passive cigarette sm matias exposure no Jaret Contreras number of years as a smoker 10 years or m ore Jaret Contreras smoking, date started 1981 Yong Contreras smoking history, tot al pack/year 35 Jaret Contreras smoking history, tot al pack/day 3 Jaret Contreras cigarette use yes Jaret turner smoking status current every day smoker Leidy Contreras smoking history, tot al pack/year 35 Corine Lazo drug use no Corine Maloney lder passive cigarette sm matias exposure no Corine Lazo smoking/tobacco cess ation, patient education and counseling yes Corine Lazo smoking history, tot al pack/day 3 Corine Lazo smoking history, tot al pack/year 30 Corine Lazo cigarette use yes Corine pastor smoking, date started 1981 Corine Lazo smoking status current every day smoker K farheen Lazo social history reviewed E&M reviewed Rex Ling RN social history reviewed E&M reviewed Rex Ling RN social history reviewed E&M reviewed Castro Mojica MD drug use none Castro Mojica MD social history reviewed E&M reviewed Rex Ling RN social history E&M Marital Statu s: L dracy with family/friends E thnicity: Rex Ling RN social history reviewed E&M reviewed Rex Ling RN physical exercise, frequency, days per week yes LinkLog caffeine use, averag e drinks per day yes LinkLog alcohol use, average drinks per day social basis only LinkLog number of years as a smoker [facility]Log FUNCTIONAL STATUS Date Observation Value Provider HRA, CV Assess/Plan, Angina (inactive) Management Plan continue current therapy Shelby Carolina SAP DEVELOPER HRA, CV Assess/Plan, Angina (inactive) Management Plan continue current therapy Amberly Roe MATERIAL PLANNING ANALYST HRA, CV Assess/Plan, Angina (inactive) Management Plan continue current therapy Lul Moreno MD HRA, CV Assess/Plan, Angina (inactive) Management Plan continue current therapy Lul Moreno MD HRA, CV Assess/Plan, Angina (inactive) Management Plan continue current therapy Lul Moreno MD HRA, CV Assess/Plan, Angina (inactive) Management Plan continue current therapy Lul Moreno MD HRA, CV Assess/Plan, Angina (inactive) Management Plan continue current therapy Lul Moreno MD HRA, CV Assess/Plan, Angina (inactive) Management Plan continue current therapy Castro Mojica MD HRA, CV Assess/Plan, Angina (inactive) Management Plan continue current therapy Lul Moreno MD MENTAL STATUS Date Observation Value Provider assessment of judgme nt and insight E&M Alert and oriented to time, place and person. Mood and affect are normal. Rex Ling RN assessment of judgme nt and insight E&M Alert and oriented to time, place and person. Mood and affect are normal. Rex Ling RN assessment of judgme nt and insight E&M Alert and oriented to time, place and person. Mood and affect are normal. Castro Mojica MD assessment of judgme nt and insight E&M Alert and oriented to time, place and person. Mood and affect are normal. Rex Ling RN assessment of judgme nt and insight E&M Alert and oriented to time, place and person. Mood and affect are normal. Rex Ling RN assessment of judgme nt and insight E&M Alert and oriented to time, place and person. Mood and affect are normal. Rex Ling RN FAMILY HISTORY Family Member Condition Full Sister Family History of Hy pertension: Mother Family History of Hy pertension: INSURANCE PROVIDERS Payer name Policy type / Coverage type [place] [employer] party ID AARP [facility] ADVANTAGE PLAN 2 (HMO-POS) Medicare [id number] ADVANCE DIRECTIVES Name Date DISCUSSED - NO DECISION MADE TREATMENT PLAN Date Name Performer [id number],S, Lul wong MD [id number],S, Lul wong MD [id number],C,T he patient is using CPAP on a regular basis. The patient has been benefiting from therapy and should continue use. Lul Moreno MD [id number],B, Lul wong MD [id number],S, Lul wong MD [id number],C,c essation encouraged. She has smoked >60 years and will need low dose screening CT chest Amberlyko Rahmanmary [facility] [id number],C,T he patient is using CPAP on a regular basis. The patient has been benefiting from therapy and should continue use. Amberly [facility] [id number],C,o n low dose statin. Last LDL 87 she is planned for labs today if LDL>70 will increase statin dose. H er updated medication list for this problem includes: Atorvastatin 10 Mg Tablet (Atorvastatin) ..... Once a day [facility] [id number],C,B P 169/89 today. Will have her monitor at home as she reports BP 130s systolic. Will review readings at next visit or sooner if needed. T he following medications were removed from the medication list: Christiano Low Dose Aspirin 81 Mg Tablet,delayed Release (dr/ec) (Aspirin) ..... 1 tablet by mouth once a day Her updated medication list for this problem includes: Amlodipine 10 Mg Tablet (Amlodipine) ..... Once a day Carvedilol 25 Mg Tablet (Carvedilol) ..... Take 0.5 tablet twice a day [facility] [id number],C,S he had stress and echo after last visit for atypical episodes of chest pain. Pain has lessened since last visit and stress test negative for ischemia. Echo showed EF of 60% with mild MR. Given that will continue with medical management at thist [facility]. T he following medications were removed from the medication list: Christiano Low Dose Aspirin 81 Mg Tablet,delayed Release (dr/ec) (Aspirin) ..... 1 tablet by mouth once a day Her updated medication list for this problem includes: Amlodipine 10 Mg Tablet (Amlodipine) ..... Once a day Carvedilol 25 Mg Tablet (Carvedilol) ..... Take 0.5 tablet twice a day Amberly Roe [facility] [id number],S, Lul Ivanna wong MD [id number],C,T he patient is using CPAP on a regular basis. The patient has been benefiting from therapy and should continue use. Lul Moreno MD [id number],S, Lul Ramada n [id number],B, Lul Ivanna wong MD [id number],S, Lul Ramada n [id number],C,T he patient is using CPAP on a regular basis. The patient has been benefiting from therapy and should continue use. Lul Moreno MD [id number],S, Lul Ramada marvin JAEGER [id number],S, Lul Ramada n [id number],S, Lul Ramada n [id number],S, Lul Ramada n [id number],S, Lul Ramada n Cardiology: T he patient is using CPAP on a regular basis. The patient has been benefiting from therapy and should continue use. Shelby Carolina NP Cardiology: W ill check labs H er updated medication list for this problem includes: Atorvastatin 20 Mg Tablet (Atorvastatin) ..... Once a day Shelby Carolina NP Cardiology: L ast echo 09/2023 with ef 60-65%, trivial MR, concentric LVH B P today: 140/72 P rior BP: 157/81 (08/07/2023) Her updated medication list for this problem includes: Chlorthalidone 25 Mg Tablet (Chlorthalidone) ..... Take 1 pill a day Amlodipine 10 Mg Tablet (Amlodipine) ..... Once a day Carvedilol 25 Mg Tablet (Carvedilol) ..... Take 0.5 tablet twice a day Stephaniekari Caity ZARATE Cardiology: H er updated medication list for this problem includes: Warfarin 5 Mg Tablet (Warfarin) ..... Take 1 1/2 tablet by mouth every evening as directed except wed and fri take 1 tablet to = 5 mg Shelby Carolina NP Cardiology: N o angina S tress test 09/2023 negative for ischemia Shelby Carolina NP Cardiology Lul Moreno MD Cardiology Lul Moreno MD Cardiology:Check ECHO for valvul ar disease. Lul Moreno MD Cardiology:The stephie nt is using CPAP on a regular basis. The patient has been benefiting from therapy and should continue use. Lul Moreno MD Cardiology:Having so me chest discomfort. Will check regadenoson prior to her orthopedic surgery. Lul Moreno MD Cardiology Lul Moreno MD Cardiology Lul Moreno MD Cardiology:The stephie nt is using CPAP on a regular basis. The patient has been benefiting from therapy and should continue use. Lul Moreno MD Cardiology Lul Moreno MD Cardiology Lul Moreno MD Cardiology:cessation encouraged. She has smoked >60 years and will need low dose screening CT chest Amberly Roe [facility] Cardiology:The stephie nt is using CPAP on a regular basis. The patient has been benefiting from therapy and should continue use. Amberly Roe [facility] Cardiology:on low do se statin. Last LDL 87 she is planned for labs today if LDL>70 will increase statin dose. H er updated medication list for this problem includes: Atorvastatin 10 Mg Tablet (Atorvastatin) ..... Once a day Amberly Roe [facility] Cardiology:BP 169/89 today. Will have her monitor at home as she reports BP 130s systolic. Will review readings at next visit or sooner if needed. T he following medications were removed from the medication list: Christiano Low Dose Aspirin 81 Mg Tablet,delayed Release (dr/ec) (Aspirin) ..... 1 tablet by mouth once a day Her updated medication list for this problem includes: Amlodipine 10 Mg Tablet (Amlodipine) ..... Once a day Carvedilol 25 Mg Tablet (Carvedilol) ..... Take 0.5 tablet twice a day Amberlyko Rahmanmary [facility] Cardiology:She had s tress and echo after last visit for atypical episodes of chest pain. Pain has lessened since last visit and stress test negative for ischemia. Echo showed EF of 60% with mild MR. Given that will continue with medical management at [facility]. T he following medications were removed from the medication list: Christiano Low Dose Aspirin 81 Mg Tablet,delayed Release (dr/ec) (Aspirin) ..... 1 tablet by mouth once a day Her updated medication list for this problem includes: Amlodipine 10 Mg Tablet (Amlodipine) ..... Once a day Carvedilol 25 Mg Tablet (Carvedilol) ..... Take 0.5 tablet twice a day [place] Bhupinder [facility] Cardiology Lul Moreno MD Cardiology:The stephie nt is using CPAP on a regular basis. The patient has been benefiting from therapy and should continue use. Lul Moreno MD Cardiology Lul Moreno MD Cardiology Lul Moreno MD Cardiology Lul Ramadamarvin JAEGER Cardiology:The patie nt is using CPAP on a regular basis. The patient has been benefiting from therapy and should continue use. Lul Moreno MD Cardiology Lul Moreno MD Cardiology Lul Malikadamarvin JAEGER Cardiology Lul Malikadamarvin JAEGER Cardiology Lul Malikadamarvin JAEGER Cardiology Lul Moreno MD Cardiology follow up Lul morales MD Cardiology follow up Lul morales MD Cardiology follow up :Quit smoki ng 7 months ago Lul Moreno MD Cardiology follow up Lul morales MD Cardiology follow up :Has CP, not classic. Will get stress test. Lul Moreno MD Cardiology follow up :Needs f/u [place] Lul Moreno MD Cardiology:Quit 1 year ago Lul Moreno MD Cardiology Lul Moreno MD Cardiology Lul Moreno MD Cardiology:The patie nt is using CPAP on a regular basis. The patient has been benefiting from therapy and should continue use. Lul Moreno MD Cardiology Lul Moreno MD Cardiology follow up Lul morales MD Cardiology follow up Lul morales MD Cardiology follow up Lul morales MD Cardiology follow up Lul morales MD Cardiology follow up Lul morales MD Cardiology follow up Lul morales MD Cardiology Lul Moreno MD Cardiology Lul Moreno MD Cardiology Lul Moreno MD Cardiology Lul Moreno MD Cardiology Lul Moreno MD Cardiology Lul Moreno MD Cardiology Follow up Castro ramirez MD Cardiology Follow up Castro ramirez MD Cardiology Follow up Castro ramirez MD Cardiology Follow up Castro ramirez MD Cardiology Follow up :scheduled for AIF Castro Mojica MD Cardiology Follow up Castro ramirez MD Cardiology Lul Moreno MD Cardiology Lul Moreno MD Cardiology Lul Moreno MD Cardiology Lul Moreno MD Cardiology Lul Moreno MD Cardiology Lul Moreno MD routine : T he following medications were removed from the medication list: Hydrochlorothiazide 12.5 Mg Caps (Hydrochlorothiazide) ..... One tab. daily Her updated medication list for this problem includes: Amlodipine Besylate 10 Mg Tabs (Amlodipine besylate) ..... Daily Bystolic 10 Mg Tabs (Nebivolol hcl) ..... Take one daily Prior BP: 152/80 (06/07/2010) Labs Reviewed: C reat: 0.71 (12/17/2007) Castro Mojica MD routine : H er updated medication list for this problem includes: Crestor 10 Mg Tabs (Rosuvastatin calcium) ..... One tab. daily BP today: / Prior BP: 152/80 (06/07/2010) Castro Mojica MD routine : T he following medications were removed from the medication list: Hydrochlorothiazide 12.5 Mg Caps (Hydrochlorothiazide) ..... One tab. daily Her updated medication list for this problem includes: Amlodipine Besylate 10 Mg Tabs (Amlodipine besylate) ..... Daily Bystolic 10 Mg Tabs (Nebivolol hcl) ..... Take one daily Prior BP: 152/80 (06/07/2010) Labs Reviewed: C reat: 0.71 (12/17/2007) Castro Mojica MD routine : T he following medications were removed from the medication list: Hydrochlorothiazide 12.5 Mg Caps (Hydrochlorothiazide) ..... One tab. daily Her updated medication list for this problem includes: Amlodipine Besylate 10 Mg Tabs (Amlodipine besylate) ..... Daily Bystolic 10 Mg Tabs (Nebivolol hcl) ..... Take one daily Prior BP: 152/80 (06/07/2010) Labs Reviewed: C reat: 0.71 (12/17/2007) Castro Mojica MD routine : T he following medications were removed from the medication list: Hydrochlorothiazide 12.5 Mg Caps (Hydrochlorothiazide) ..... One tab. daily Her updated medication list for this problem includes: Amlodipine Besylate 10 Mg Tabs (Amlodipine besylate) ..... Daily Bystolic 10 Mg Tabs (Nebivolol hcl) ..... Take one daily Prior BP: 152/80 (06/07/2010) Labs Reviewed: C reat: 0.71 (12/17/2007) Castro Mojica MD follow up: H er updated medication list for this problem includes: Coumadin Tabs (Warfarin sodium tabs) ..... As per ordered by dr. nancy Chaudhary 10 Mg Tabs (Rosuvastatin calcium) ..... One tab. daily Bystolic 10 Mg Tabs (Nebivolol hcl) ..... Take one daily BP today: 152/80 Prior BP: 163/80 (11/01/2009) N uclear Stress Findings: EF- 56%. 1 -4 - 1.6mm downsloipng ST segment depression in the inferior leads which may be suggestive of ischemia. N ormal myocardial perfusion imaging. (11/30/2005) C ardiac Cath: Continued patency of the stent previously placed in the left circumflex (3.5mm Taxus stent). Mild disease with 30% stenosis of the left circumflex and 20% stenosis of the RCA. Preserved LV systolic function. EF 70%. Successful closure of the right groin using 6-Anguillan Angio-Seal closure device. (12/18/2007) C arotid Doppler/Duplex: normal: (12/13/2006) H gb: 13.9 (12/17/2007) HCT: 43.9 (12/17/2007) RBC: 4.98 (12/17/2007) WBC: 7.0 (12/17/2007) B UN: 8 (12/17/2007) Creat: 0.71 (12/17/2007) Na+: 141 (12/17/2007) K+: 4.2 (12/17/2007) Castro Mojica MD follow up: H er updated medication list for this problem includes: Coumadin Tabs (Warfarin sodium tabs) ..... As per ordered by dr. nancy Chaudhary 10 Mg Tabs (Rosuvastatin calcium) ..... One tab. daily Bystolic 10 Mg Tabs (Nebivolol hcl) ..... Take one daily BP today: 152/80 Prior BP: 163/80 (11/01/2009) N uclear Stress Findings: EF- 56%. 1 -4 - 1.6mm downsloipng ST segment depression in the inferior leads which may be suggestive of ischemia. N ormal myocardial perfusion imaging. (11/30/2005) C ardiac Cath: Continued patency of the stent previously placed in the left circumflex (3.5mm Taxus stent). Mild disease with 30% stenosis of the left circumflex and 20% stenosis of the RCA. Preserved LV systolic function. EF 70%. Successful closure of the right groin using 6-Anguillan Angio-Seal closure device. (12/18/2007) C arotid Doppler/Duplex: normal: (12/13/2006) H gb: 13.9 (12/17/2007) HCT: 43.9 (12/17/2007) RBC: 4.98 (12/17/2007) WBC: 7.0 (12/17/2007) B UN: 8 (12/17/2007) Creat: 0.71 (12/17/2007) Na+: 141 (12/17/2007) K+: 4.2 (12/17/2007) Castro Mojica MD follow up: H er updated medication list for this problem includes: Exforge 10-320 Mg Tabs (Amlodipine besylate-valsartan) ..... One tab. daily Hydrochlorothiazide 12.5 Mg Caps (Hydrochlorothiazide) ..... One tab. daily Bystolic 10 Mg Tabs (Nebivolol hcl) ..... Take one daily BP today: 152/80 P rior BP: 163/80 (11/01/2009) Labs Reviewed: C reat: 0.71 (12/17/2007) Castro Mojica MD follow up: H er updated medication list for this problem includes: Crestor 10 Mg Tabs (Rosuvastatin calcium) ..... One tab. daily BP today: 152/80 Prior BP: 163/80 (11/01/2009) Castro Mojica MD follow up: H er updated medication list for this problem includes: Coumadin Tabs (Warfarin sodium tabs) ..... As per ordered by dr. santos Carotid Duplex Scan: n ormal: (12/13/2006) Echocardiogram: N ormal left ventricular systolic function. Normal left ventricular size. Normal left ventricular wall thickness. There is E to A wave reversal consistent with impaired LV relaxation . Normal E/E` 8.0. Left ventricular ejection fraction is estimated at 65%. There is non-specific thickening of the mitral valve leaflets. Mild mitral valve r egurgitation. Normal pericardium with no pericardial or pleural effusion. Normal aortic root. (11/01/2009) Castro Mojica MD follow up: H er updated medication list for this problem includes: Exforge 10-320 Mg Tabs (Amlodipine besylate-valsartan) ..... One tab. daily Hydrochlorothiazide 12.5 Mg Caps (Hydrochlorothiazide) ..... One tab. daily Bystolic 10 Mg Tabs (Nebivolol hcl) ..... Take one daily BP today: 152/80 P rior BP: 163/80 (11/01/2009) Labs Reviewed: C reat: 0.71 (12/17/2007) Castro Mojica MD follow up: H er updated medication list for this problem includes: Exforge 10-320 Mg Tabs (Amlodipine besylate-valsartan) ..... One tab. daily Hydrochlorothiazide 12.5 Mg Caps (Hydrochlorothiazide) ..... One tab. daily Bystolic 10 Mg Tabs (Nebivolol hcl) ..... Take one daily BP today: 152/80 P rior BP: 163/80 (11/01/2009) Labs Reviewed: C reat: 0.71 (12/17/2007) Castro Mojica MD follow up: H er updated medication list for this problem includes: Exforge 10-320 Mg Tabs (Amlodipine besylate-valsartan) ..... One tab. daily Hydrochlorothiazide 12.5 Mg Caps (Hydrochlorothiazide) ..... One tab. daily Bystolic 10 Mg Tabs (Nebivolol hcl) ..... Take one daily BP today: 152/80 P rior BP: 163/80 (11/01/2009) Labs Reviewed: C reat: 0.71 (12/17/2007) Castro Mojica MD echo with f/u: H er updated medication list for this problem includes: Coumadin Tabs (Warfarin sodium tabs) ..... As per ordered by dr. santos Carotid Duplex Scan: n ormal: (12/13/2006) Echocardiogram: T he left ventricular chamber size is normal. Wall thickness is increased consistent with mild concentric left ventricular hypertrophy. Normal left ventricular function. LV EF is estimated at 65%. There is E: A reversal of mitral inflow velocities consistent with diastolic dysfunction. The mitral valve leaflets appear (sclerotic) thickened. Minimal mitral regurgitation. There is a trace of aortic regurgitation. Minimal to (1+) mild tricuspid regurgitation. M inimal pulmonic regurgitation. (12/10/2007) Castro Mojica MD echo with f/u: H er updated medication list for this problem includes: Coumadin Tabs (Warfarin sodium tabs) ..... As per ordered by dr. santos Crestor 10 Mg Tabs (Rosuvastatin calcium) ..... One tab. daily Bystolic 10 Mg Tabs (Nebivolol hcl) ..... Take one daily BP today: 163/80 Prior BP: 138/77 (09/29/2008) N uclear Stress Findings: EF- 56%. 1 -4 - 1.6mm downsloipng ST segment depression in the inferior leads which may be suggestive of ischemia. N ormal myocardial perfusion imaging. (11/30/2005) C ardiac Cath: Continued patency of the stent previously placed in the left circumflex (3.5mm Taxus stent). Mild disease with 30% stenosis of the left circumflex and 20% stenosis of the RCA. Preserved LV systolic function. EF 70%. Successful closure of the right groin using 6-Anguillan Angio-Seal closure device. (12/18/2007) C arotid Doppler/Duplex: normal: (12/13/2006) H gb: 13.9 (12/17/2007) HCT: 43.9 (12/17/2007) RBC: 4.98 (12/17/2007) WBC: 7.0 (12/17/2007) B UN: 8 (12/17/2007) Creat: 0.71 (12/17/2007) Na+: 141 (12/17/2007) K+: 4.2 (12/17/2007) Castro Mojica MD echo with f/u: H er updated medication list for this problem includes: Crestor 10 Mg Tabs (Rosuvastatin calcium) ..... One tab. daily BP today: 163/80 Prior BP: 138/77 (09/29/2008) Castro Mojica MD echo with f/u: H er updated medication list for this problem includes: Exforge 10-320 Mg Tabs (Amlodipine besylate-valsartan) ..... One tab. daily Hydrochlorothiazide 12.5 Mg Caps (Hydrochlorothiazide) ..... One tab. daily Bystolic 10 Mg Tabs (Nebivolol hcl) ..... Take one daily BP today: 163/80 P rior BP: 138/77 (09/29/2008) Labs Reviewed: C reat: 0.71 (12/17/2007) Castro Mojica MD echo with f/u: H er updated medication list for this problem includes: Exforge 10-320 Mg Tabs (Amlodipine besylate-valsartan) ..... One tab. daily Hydrochlorothiazide 12.5 Mg Caps (Hydrochlorothiazide) ..... One tab. daily Bystolic 10 Mg Tabs (Nebivolol hcl) ..... Take one daily BP today: 163/80 P rior BP: 138/77 (09/29/2008) Labs Reviewed: C reat: 0.71 (12/17/2007) Castro Mojica MD routine: T he following medications were removed from the medication list: Aspirin 81 Mg Tabs (Aspirin) ..... One tab. daily Her updated medication list for this problem includes: Coumadin Tabs (Warfarin sodium tabs) ..... As per ordered by dr. santos Crestor 10 Mg Tabs (Rosuvastatin calcium) ..... One tab. daily Bystolic Tabs (Nebivolol hcl tabs) ..... 10mg one tab per day BP today: 138/77 Prior BP: 174/87 (03/10/2008) N uclear Stress Findings: EF- 56%. 1 -4 - 1.6mm downsloipng ST segment depression in the inferior leads which may be suggestive of ischemia. N ormal myocardial perfusion imaging. (11/30/2005) C ardiac Cath: Continued patency of the stent previously placed in the left circumflex (3.5mm Taxus stent). Mild disease with 30% stenosis of the left circumflex and 20% stenosis of the RCA. Preserved LV systolic function. EF 70%. Successful closure of the right groin using 6-Anguillan Angio-Seal closure device. (12/18/2007) Carotid Doppler/Duplex: normal: (12/13/2006) H gb: 13.9 (12/17/2007) HCT: 43.9 (12/17/2007) RBC: 4.98 (12/17/2007) WBC: 7.0 (12/17/2007) B UN: 8 (12/17/2007) Creat: 0.71 (12/17/2007) Na+: 141 (12/17/2007) K+: 4.2 (12/17/2007) Castro Mojica MD routine: T he following medications were removed from the medication list: Aspirin 81 Mg Tabs (Aspirin) ..... One tab. daily Her updated medication list for this problem includes: Coumadin Tabs (Warfarin sodium tabs) ..... As per ordered by dr. nancy Chaudhary 10 Mg Tabs (Rosuvastatin calcium) ..... One tab. daily Bystolic Tabs (Nebivolol hcl tabs) ..... 10mg one tab per day BP today: 138/77 Prior BP: 174/87 (03/10/2008) N uclear Stress Findings: EF- 56%. 1 -4 - 1.6mm downsloipng ST segment depression in the inferior leads which may be suggestive of ischemia. N ormal myocardial perfusion imaging. (11/30/2005) C ardiac Cath: Continued patency of the stent previously placed in the left circumflex (3.5mm Taxus stent). Mild disease with 30% stenosis of the left circumflex and 20% stenosis of the RCA. Preserved LV systolic function. EF 70%. Successful closure of the right groin using 6-Anguillan Angio-Seal closure device. (12/18/2007) Carotid Doppler/Duplex: normal: (12/13/2006) H gb: 13.9 (12/17/2007) HCT: 43.9 (12/17/2007) RBC: 4.98 (12/17/2007) WBC: 7.0 (12/17/2007) B UN: 8 (12/17/2007) Creat: 0.71 (12/17/2007) Na+: 141 (12/17/2007) K+: 4.2 (12/17/2007) O rders: E KG ([id number]) Castro Mojica MD routine: T he following medications were removed from the medication list: Aspirin 81 Mg Tabs (Aspirin) ..... One tab. daily Her updated medication list for this problem includes: Exforge 10-320 Mg Tabs (Amlodipine besylate-valsartan) ..... One tab. daily Hydrochlorothiazide 12.5 Mg Caps (Hydrochlorothiazide) ..... One tab. daily Bystolic Tabs (Nebivolol hcl tabs) ..... 10mg one tab per day BP today: 138/77 P rior BP: 174/87 (03/10/2008) Labs Reviewed: C reat: 0.71 (12/17/2007) Castro Mojica MD routine: H er updated medication list for this problem includes: Crestor 10 Mg Tabs (Rosuvastatin calcium) ..... One tab. daily BP today: 138/77 Prior BP: 174/87 (03/10/2008) Castro Mojica MD routine: T he following medications were removed from the medication list: Aspirin 81 Mg Tabs (Aspirin) ..... One tab. daily Her updated medication list for this problem includes: Coumadin Tabs (Warfarin sodium tabs) ..... As per ordered by dr. santos Carotid Duplex Scan: n ormal: (12/13/2006) Echocardiogram: T he left ventricular chamber size is normal. Wall thickness is increased consistent with mild concentric left ventricular hypertrophy. Normal left ventricular function. LV EF is estimated at 65%. There is E: A reversal of mitral inflow velocities consistent with diastolic dysfunction. The mitral valve leaflets appear (sclerotic) thickened. Minimal mitral regurgitation. There is a trace of aortic regurgitation. Minimal to (1+) mild tricuspid regurgitation. M inimal pulmonic regurgitation. (12/10/2007) Castro Mojica MD routine: T he following medications were removed from the medication list: Aspirin 81 Mg Tabs (Aspirin) ..... One tab. daily Her updated medication list for this problem includes: Exforge 10-320 Mg Tabs (Amlodipine besylate-valsartan) ..... One tab. daily Hydrochlorothiazide 12.5 Mg Caps (Hydrochlorothiazide) ..... One tab. daily Bystolic Tabs (Nebivolol hcl tabs) ..... 10mg one tab per day BP today: 138/77 P rior BP: 174/87 (03/10/2008) Labs Reviewed: C reat: 0.71 (12/17/2007) Castro Mojica MD routine: T he following medications were removed from the medication list: Aspirin 81 Mg Tabs (Aspirin) ..... One tab. daily Her updated medication list for this problem includes: Exforge 10-320 Mg Tabs (Amlodipine besylate-valsartan) ..... One tab. daily Hydrochlorothiazide 12.5 Mg Caps (Hydrochlorothiazide) ..... One tab. daily Bystolic Tabs (Nebivolol hcl tabs) ..... 10mg one tab per day BP today: 138/77 P rior BP: 174/87 (03/10/2008) Labs Reviewed: C reat: 0.71 (12/17/2007) Castro Mojica MD office visit: T he following medications were removed from the medication list: Crestor 10 Mg Tabs (Rosuvastatin calcium) ..... One tab. daily Metoprolol Succinate 25 Mg Tb24 (Metoprolol succinate) Her updated medication list for this problem includes: Coumadin Tabs (Warfarin sodium tabs) ..... As per ordered by dr. santos Crestor 10 Mg Tabs (Rosuvastatin calcium) ..... One tab. daily Aspirin 81 Mg Tabs (Aspirin) ..... One tab. daily Bystolic Tabs (Nebivolol hcl tabs) ..... 5mg one tab per day BP today: 174/87 Prior BP: 173/103 (12/10/2007) Nuclear Stress Findings: EF- 56%. 1 -4 - 1.6mm downsloipng ST segment depression in the inferior leads which may be suggestive of ischemia. N ormal myocardial perfusion imaging. (11/30/2005) C ardiac Cath: Continued patency of the stent previously placed in the left circumflex (3.5mm Taxus stent). Mild disease with 30% stenosis of the left circumflex and 20% stenosis of the RCA. Preserved LV systolic function. EF 70%. Successful closure of the right groin using 6-Anguillan Angio-Seal closure device. (12/18/2007) C arotid Doppler/Duplex: normal: (12/13/2006) H gb: 13.9 (12/17/2007) HCT: 43.9 (12/17/2007) RBC: 4.98 (12/17/2007) WBC: 7.0 (12/17/2007) B UN: 8 (12/17/2007) Creat: 0.71 (12/17/2007) Na+: 141 (12/17/2007) K+: 4.2 (12/17/2007) Castro Mojica MD office visit: T he following medications were removed from the medication list: Crestor 10 Mg Tabs (Rosuvastatin calcium) ..... One tab. daily Metoprolol Succinate 25 Mg Tb24 (Metoprolol succinate) Her updated medication list for this problem includes: Coumadin Tabs (Warfarin sodium tabs) ..... As per ordered by dr. santos Crestor 10 Mg Tabs (Rosuvastatin calcium) ..... One tab. daily Aspirin 81 Mg Tabs (Aspirin) ..... One tab. daily Bystolic Tabs (Nebivolol hcl tabs) ..... 5mg one tab per day BP today: 174/87 Prior BP: 173/103 (12/10/2007) Nuclear Stress Findings: EF- 56%. 1 -4 - 1.6mm downsloipng ST segment depression in the inferior leads which may be suggestive of ischemia. N ormal myocardial perfusion imaging. (11/30/2005) C ardiac Cath: Continued patency of the stent previously placed in the left circumflex (3.5mm Taxus stent). Mild disease with 30% stenosis of the left circumflex and 20% stenosis of the RCA. Preserved LV systolic function. EF 70%. Successful closure of the right groin using 6-Anguillan Angio-Seal closure device. (12/18/2007) C arotid Doppler/Duplex: normal: (12/13/2006) H gb: 13.9 (12/17/2007) HCT: 43.9 (12/17/2007) RBC: 4.98 (12/17/2007) WBC: 7.0 (12/17/2007) B UN: 8 (12/17/2007) Creat: 0.71 (12/17/2007) Na+: 141 (12/17/2007) K+: 4.2 (12/17/2007) Castro Mojica MD office visit: T he following medications were removed from the medication list: Crestor 10 Mg Tabs (Rosuvastatin calcium) ..... One tab. daily Her updated medication list for this problem includes: Crestor 10 Mg Tabs (Rosuvastatin calcium) ..... One tab. daily BP today: 174/87 Prior BP: 173/103 (12/10/2007) Castro Mojica MD office visit: T he following medications were removed from the medication list: Metoprolol Succinate 25 Mg Tb24 (Metoprolol succinate) Her updated medication list for this problem includes: Aspirin 81 Mg Tabs (Aspirin) ..... One tab. daily Exforge 10-320 Mg Tabs (Amlodipine besylate-valsartan) ..... One tab. daily Hydrochlorothiazide 12.5 Mg Caps (Hydrochlorothiazide) ..... One tab. daily Bystolic Tabs (Nebivolol hcl tabs) ..... 5mg one tab per day Castro Mojica MD office visit: H er updated medication list for this problem includes: Coumadin Tabs (Warfarin sodium tabs) ..... As per ordered by dr. santos Aspirin 81 Mg Tabs (Aspirin) ..... One tab. daily Carotid Duplex Scan: n ormal: (12/13/2006) Echocardiogram: T he left ventricular chamber size is normal. Wall thickness is increased consistent with mild concentric left ventricular hypertrophy. Normal left ventricular function. LV EF is estimated at 65%. There is E: A reversal of mitral inflow velocities consistent with diastolic dysfunction. The mitral valve leaflets appear (sclerotic) thickened. Minimal mitral regurgitation. There is a trace of aortic regurgitation. Minimal to (1+) mild tricuspid regurgitation. M inimal pulmonic regurgitation. (12/10/2007) Castro Mojica MD office visit: T efrain following medications were removed from the medication list: Metoprolol Succinate 25 Mg Tb24 (Metoprolol succinate) Her updated medication list for this problem includes: Aspirin 81 Mg Tabs (Aspirin) ..... One tab. daily Exforge 10-320 Mg Tabs (Amlodipine besylate-valsartan) ..... One tab. daily Hydrochlorothiazide 12.5 Mg Caps (Hydrochlorothiazide) ..... One tab. daily Bystolic Tabs (Nebivolol hcl tabs) ..... 5mg one tab per day BP today: 174/87 P rior BP: 173/103 (12/10/2007) Labs Reviewed: C reat: 0.71 (12/17/2007) Castro Mojica MD office visit: T efrain following medications were removed from the medication list: Metoprolol Succinate 25 Mg Tb24 (Metoprolol succinate) Her updated medication list for this problem includes: Aspirin 81 Mg Tabs (Aspirin) ..... One tab. daily Exforge 10-320 Mg Tabs (Amlodipine besylate-valsartan) ..... One tab. daily Hydrochlorothiazide 12.5 Mg Caps (Hydrochlorothiazide) ..... One tab. daily Bystolic Tabs (Nebivolol hcl tabs) ..... 5mg one tab per day BP today: 174/87 P rior BP: 173/103 (12/10/2007) Labs Reviewed: C reat: 0.71 (12/17/2007) Castro Mojica MD office visit: T he following medications were removed from the medication list: Quinapril Hcl 40 Mg Tabs (Quinapril hcl) ..... One tab. daily Felodipine 10 Mg Tb24 (Felodipine) ..... Qd H er updated medication list for this problem includes: Coumadin Tabs (Warfarin sodium tabs) ..... As per ordered by dr. santos Crestor 10 Mg Tabs (Rosuvastatin calcium) ..... One tab. daily Aspirin 81 Mg Tabs (Aspirin) ..... One tab. daily Crestor 10 Mg Tabs (Rosuvastatin calcium) ..... One tab. daily BP today: 173/103 Prior BP: / () N uclear Stress Findings: EF- 56%. 1 -4 - 1.6mm downsloipng ST segment depression in the inferior leads which may be suggestive of ischemia. N ormal myocardial perfusion imaging. (11/30/2005) C ardiac Cath: % LAD stenosis: diffuse disease. % CX stenosis: 70% mid. N ormal systolic function. P natalie to proceed with angioplasty and stenting of the mid circumflex. (10/19/2003) C arotid Doppler/Duplex: normal: (12/13/2006) Castro Mojica MD office visit: H er updated medication list for this problem includes: Crestor 10 Mg Tabs (Rosuvastatin calcium) ..... One tab. daily Crestor 10 Mg Tabs (Rosuvastatin calcium) ..... One tab. daily BP today: 173/103 Prior BP: / () Orders: C ardiac Cath - GC (*) Castro Mojica MD office visit: H er updated medication list for this problem includes: Coumadin Tabs (Warfarin sodium tabs) ..... As per ordered by dr. santos Aspirin 81 Mg Tabs (Aspirin) ..... One tab. daily Carotid Duplex Scan: n ormal: (12/13/2006) Echocardiogram: E F - 65-70%. H yperdynamic LV. M ild diastolic dysfunction. C oncentric LVH. T race mitral regurgitation. T race pulmonary insufficiency. T race tricuspid regurgitation. PA pressure of 28mmHg. (12/13/2006) Orders: C ardiac Cath - GC (*) Castro Mojica MD office visit: T he following medications were removed from the medication list: Quinapril Hcl 40 Mg Tabs (Quinapril hcl) ..... One tab. daily Felodipine 10 Mg Tb24 (Felodipine) ..... Qd H er updated medication list for this problem includes: Aspirin 81 Mg Tabs (Aspirin) ..... One tab. daily Exforge 10-320 Mg Tabs (Amlodipine besylate-valsartan) ..... One tab. daily Hydrochlorothiazide 12.5 Mg Caps (Hydrochlorothiazide) ..... One tab. daily Metoprolol Succinate 25 Mg Tb24 (Metoprolol succinate) BP today: 173/103 Orders: C ardiac Cath - GC (*) Castro Mojica MD office visit: T he following medications were removed from the medication list: Quinapril Hcl 40 Mg Tabs (Quinapril hcl) ..... One tab. daily Felodipine 10 Mg Tb24 (Felodipine) ..... Qd H er updated medication list for this problem includes: Coumadin Tabs (Warfarin sodium tabs) ..... As per ordered by dr. santos Crestor 10 Mg Tabs (Rosuvastatin calcium) ..... One tab. daily Aspirin 81 Mg Tabs (Aspirin) ..... One tab. daily Crestor 10 Mg Tabs (Rosuvastatin calcium) ..... One tab. daily Metoprolol Succinate 25 Mg Tb24 (Metoprolol succinate) BP today: 173/103 Prior BP: / () N uclear Stress Findings: EF- 56%. 1 -4 - 1.6mm downsloipng ST segment depression in the inferior leads which may be suggestive of ischemia. N ormal myocardial perfusion imaging. (11/30/2005) C ardiac Cath: % LAD stenosis: diffuse disease. % CX stenosis: 70% mid. N ormal systolic function. P natalie to proceed with angioplasty and stenting of the mid circumflex. (10/19/2003) C arotid Doppler/Duplex: normal: (12/13/2006) Castro Mojica MD office visit: T he following medications were removed from the medication list: Quinapril Hcl 40 Mg Tabs (Quinapril hcl) ..... One tab. daily Felodipine 10 Mg Tb24 (Felodipine) ..... Qd H er updated medication list for this problem includes: Aspirin 81 Mg Tabs (Aspirin) ..... One tab. daily Exforge 10-320 Mg Tabs (Amlodipine besylate-valsartan) ..... One tab. daily Hydrochlorothiazide 12.5 Mg Caps (Hydrochlorothiazide) ..... One tab. daily Metoprolol Succinate 25 Mg Tb24 (Metoprolol succinate) BP today: 173/103 Orders: [place] ardiac Cath - GC (*) Castro Mojica MD office visit: T efrain following medications were removed from the medication list: Quinapril Hcl 40 Mg Tabs (Quinapril hcl) ..... One tab. daily Felodipine 10 Mg Tb24 (Felodipine) ..... Qd H er updated medication list for this problem includes: Aspirin 81 Mg Tabs (Aspirin) ..... One tab. daily Exforge 10-320 Mg Tabs (Amlodipine besylate-valsartan) ..... One tab. daily Hydrochlorothiazide 12.5 Mg Caps (Hydrochlorothiazide) ..... One tab. daily Metoprolol Succinate 25 Mg Tb24 (Metoprolol succinate) BP today: 173/103 Orders: C ardiac Cath - GC (*) Castro Mojica MD Date Name CBC (INCLUDES DIFF/P LT) LIPID PANEL COMPREHENSIVE METABO LIC PANEL, W/EGFR CRP, high sensitivit y HEMOGLOBIN A1c Lipoprotein (a) LIPID PANEL Complete Echo Stress Regadenoson Low Dose Lung CT LIPID PANEL RPM (remote patient monitoring) Stress Exercise Card iolite Complete Echo Arterial Duplex Bi-L ower EX Stress Exercise Card iolite Complete Echo Carotid Duplex Bilat eral LIPID PANEL BASIC METABOLIC PANE L W/EGFR CBC (INCLUDES DIFF/P LT) PROTHROMBIN TIME WIT H INR PROTHROMBIN TIME WIT H INR CBC (INCLUDES DIFF/P LT) BASIC METABOLIC PANE L W/EGFR LIPID PANEL PROTHROMBIN TIME WIT H INR CBC (INCLUDES DIFF/P LT) BASIC METABOLIC PANE L W/EGFR Arterial - SENSILASE Arterial Duplex Bi-L ower EX STR - Adenosine Complete Echo Sleep Study Home Cardiac Cath - GC HISTORY OF PROCEDURES Procedure Date Procedure Name Provider Procedure Notes S tatus Protroshan Mojica MD completed Protroshan Ling RN completed Amber Mcwilliams MD complete d Amber Ling RN completed Amber Almanza MD completed Amber Maciel RN completed Amber Mcwilliams MD complete d Amber Mcwilliams MD complete d Amber Stiles MD completed Amber Mcwilliams MD complete d Amber Mcwilliams MD complete d Amber Mcwilliams MD complete d Amber Mcwilliams MD complete d Amber Moreno MD complete d EKG Lul Moreno MD complete d Counseling LDCT Lul Moreno MD com pleted EKG Lul Moreno MD complete d EKG Lul Moreno MD complete d EKG Lul Moreno MD complete d SNOMED-CT: 691283133 Smoking Cessation Counseling Castro Mojica MD completed SNOMED-CT: 36416021 Physical Exam, Performed: Pulse Exam of Foot Castro Mojica MD completed SNOMED-CT: 077724376 [id number] Current Medications Documented Castro Mojica MD completed Stress EKG Martin Dalton MD complet ed Regadenoson, 4 units Lul Moreno MD completed Cardiolite, 2 units Lul Moreno MD completed SPECT Images Martin Dalton MD compl eted EKG Lul Moreno MD complete d SNOMED-CT: 180708612 [id number] Current Medications Documented Lul Moreno MD completed EKG Castro Mojica MD completed EKG Castro Mojica MD completed
--- OUTSIDE RECORDS SUMMARY | 2024-05-22 11:49 | XMS_ITS | Referral Summary ---
Author Organization [facility] Address [address] [place] [address] Care Team Providers Care Classroom Aide Name Role Phone Provider, No Pcp Primary Care Provider Unavailab le Source Comments [facility],non-owned Affiliates and Associated Physician Practices is amultiple site organization consisting of ambulatory clinics and hospital sitesin [place], [place], [place] and [place]. This disclosure is being madepursuant to the Care Everywhere program and may not contain all information available regarding this patient. Last updated 18.[facility] Encounters Date Type Department Care Team Description 04/10/2024 Travel 04/10/2024 1:15 PM TANK CLE[employer] Office Visit [facility] Orthopedics [address] [place] [phone] Barbara Liao, ROC Cervical radiculopathy at C8 (Primary Dx); Cervical spondylosis; Rotator cuff arthropathy, left; Shoulder arthritis 03/31/2024 Telephone [facility] [address] [place] [address] [phone] Marlena Zarate RN Question 03/04/2024 Travel 03/04/2024 1:00 PM [employer] CLE[employer]ER Office Visit [facility] - Family Medicine [address] [place] [phone] Harvinder Kaur MD Osteoarthritis of left glenohumeral joint (Primary Dx) 02/21/2024 Travel 02/21/2024 11:30 AM CDT - 02/21/2024 11:59 PM CDT Hospital Encounter [facility] MRI [address] [place] [phone] Barbara Liao PA-C Discharge Disposition: Home or Self Care from Last 3 Months Allergies No known active allergies Medications * [...] Active vitamin D, ergocalciferol, (Drisdol) 1.25 MG (48107 UT) capsule Take 1 (one) capsule by mouth Active Active Problems No known active problems Social [...] Comments Blood Pressure 179/90 03/04/2024 1:25 PM TANK CLE[employer]ER Pulse - - Temperature - - Respiratory Rate - - Oxygen Saturation - - Inhaled Oxygen Concentration - - Weight 61.2 kg (135 lb) 04/10/2024 12:25 PM TANK CLEANER Height 154.9 cm (5' 1 ) 03/04/2024 1:25 PM TANK CLE[employer]ER Body Mass Index 25.51 03/04/2024 1:25 PM TANK CLEANER Plan of Treatment Not on file Procedures Procedure Name Priority Date/Time Associated Diagnosis Comments LA DRAIN INJ MAJOR JOINT BURSA W US Routine 03/04/2024 1:32 PM TANK CLEANER Osteoarthritis of left glenohumeral joint MRI CERVICAL SPINE WO CONTRAST Routine 02/21/2024 12:16 PM CDT Cervical radiculopathy at C8 Cervical spondylosis from Last 3 Months Results * LA DRAIN INJ MAJOR JOINT BURSA W US (03/04/2024 1:32 PM TANK CLEANER) Narrative Harvinder Kaur MD - 03/04/2024 1:32 PM TANK CLEANER Harvinder Kaur MD ? 03/05/2024 11:05 AM [...] as outlined. This study was dictated by academic affairs vice president Prosper Mcgee MD and reviewed and edited by the attending. IAnkush MD have personally reviewed and interpreted this examination/study. > Interpreting Provider: Ankush Simpson MD on 2024 2:11 PM Narrative 2024 2:11 PM CDT PROCEDURE: ??MRI CERVICAL SPINE WO CONTRAST, DATE/TIME OF EXAM: ??02/21/2024 12:16 PM, LOCATION ??[facility] INDICATION: M54.12: Cervical radiculopathy at C8 M47.812: [...] CONTRAST, DATE/TIME OF EXAM:02/21/2024 12:16 PM, LOCATION [facility] INDICATION: M54.12: Cervical radiculopathy at C8 M47.812: [...] as outlined. This study was dictated by academic affairs vice president Prosper Mcgee MD and reviewed and edited by the attending. IAnkush MD have personally reviewed and interpretedthis examination/study. > Interpreting Provider: Ankush Simpson MD on 2024 2:11 PM Barbara Liao PA-C MR ORDERABLES from Last 3 Months Care Teams Classroom Aide Relationship Specialty Start Date End Date Provider, No Pcp PCP - General 01/01/24
--- OUTSIDE RECORDS SUMMARY | 2024-05-22 11:49 | XMS_ITS | Clinical Summary ---
Author Organization [facility] [place] Address [address] [place] [address] Phone Care Team Providers Care Modeler Name Role Phone Todd Zazueta MD Primary Care Provider [phone] Shanell Torres APRN, BUS DRIVER/MONITOR Unavailable [phone] Allergies Active Allergy Reactions Criticality Noted Date Comments Aspirin Unknown 12/07/2022 Codeine Nausea 12/07/2022 Iodinated Contrast Media Other (see Comments) 12/07/2022 Feels shaky inside Cephalexin Other (see Comments) 12/07/2022 Feels bad when she takes it Penicillin G Nausea 12/07/2022 Medications amLODIPine (NORVASC) 10 MG Tablet Take 10 mg by mouth daily. Active atorvastatin (LIPITOR) 20 MG Tablet Take 20 mg by mouth daily. Active Fluticasone Furoate-Vilante rol (BREO ELLIPTA) 100-25 MCG/ACT AEROSOL POWDER, BREATH ACTIVATED take 1 Puff by inhalation daily. Active carvedilol (COREG) 25 MG Tablet Take 25 mg by mouth 2 times daily. Active COD LIVER OIL PO Take by mouth. Activ e Coenzyme Q10 (CoQ10) 100 MG Capsule Take by mouth. Activ e simethicone (MYLICON) 125 MG Chewable Tablet Take 80 mg by mouth every 6 hours as needed. Active metFORMIN (GLUCOPHAGE-XR) 500 MG TABLET SR 24 HR Take 500 mg by mouth daily. This RX is for Metformin SR. Active Multiple Vitamin (MULTIVITAMIN PO) Take by mouth. Activ e Probiotic Product (PROBIOTIC-10 PO) Take by mouth. Activ e Cyanocobalamin (B-12 PO) Take by mouth. Activ e Ascorbic Acid (VITAMIN C PO) Take by mouth. Active ergocalciferol (VITAMIN D) 55229 UNIT Capsule Take 1.25 mg by mouth. 1 capsule every two weeks Active warfarin (COUMADIN) 5 MG Tablet Take 5 mg by mouth daily. Active warfarin (COUMADIN) 7.5 MG Tablet Take 7.5 mg by mouth daily. Active amitriptyline (ELAVIL) 10 MG TabletIndicatio ns:Episodic migraine Take 1 Tablet by mouth nightly. 90 Tablet 3 Active Ubrogepant (Ubrelvy) 50 MG TabletIndicatio ns:Episodic migraine Take 1 Tablet by mouth once as needed for Other (headache migraine). 10 Tablet 2 3 Active Active Problems No known active problems Family History Medical History Relation Name Comments Diabetes Brother Prostate Cancer Brother Other-comment Father neoplasm of br ain Cancer Mother High Cholesterol Mother Hypertension Mother High Cholesterol Sister Hypertension Sister Relation Name Status Comments Brother Father Mother Sister Social History Tobacco Use Types Packs/Day Years Used Date Smoking Tobacco: Every Day Cigarettes Smokeless Tobacco: Never Tobacco Cessation:Ready to Q uit: Not Asked; Counseling Given: Not Answered Alcohol Use Standard Drinks/Week Comments Yes 0 (1 standard drink = 0.6 oz pur e alcohol) occasional Comments Unknown Sex and Gender Information Value Date Recorded Sex Assigned at Not on file Legal Sex Female 2:29 PM CDT Gender Identity Not on file Sexual Orientation Not on file Last Filed Vital Signs Vital Sign Reading Time Taken Comments Blood Pressure 122/68 02/15/2023 10:02 AM CDT Pulse 71 02/15/2023 10:02 AM CDT Temperature 35.8 ??C (96.5 ??F) 02/15/2023 10:02 AM C DT Respiratory Rate 18 02/15/2023 10:02 AM CDT Oxygen Saturation 95% 02/15/2023 10:02 AM CDT Inhaled Oxygen Concentration - - Weight 63 kg (139 lb) 02/15/2023 10:02 AM CDT Height 154.9 cm (5' 1 ) 02/15/2023 10:02 AM CDT Body Mass Index 26.26 02/15/2023 10:02 AM CDT Plan of Treatment Health Maintenance Due Date Last Done Comments DEXA Bone Density 1950 Hepatitis C Virus (HCV) Screening 1950 Colonoscopy 1994 Colorectal Cancer Screening 1994 Cologuard 1999 Immunochemical Fecal Occult Blood 1999 Mammogram 1999 Influenza Immunization (#1) 2023 10/0 08/2022, 01/18/2022, 02/18/2021, Additional history exists SARS-COV-2 Immunization () 12/23/2023 02/02/2023, 02/27/2022, 03/23/2021, Additional history exists Pneumococcal Immunization (50+ years) Completed 09/29/2015, 03/31/2015 DTaP/Tdap/Td Immunization Discontinued 2022, 03/08/2022, 11/08/2016, Additional history exists TdaP Immunization Completed 06/23/2022, , 11/08/2016 Zoster Immunization Completed 06/23/2022, 03/08/2022, 10/04/2016, Additional history exists Respiratory Syncytial Virus (RSV) Immunization (Adult) Completed 02/02/2023 Hepatitis B Immunization Aged Out No longer eligible based on patient's age to complete this topic Meningococcal Immunization (ACWY) Aged Out No longer eligible based on patient's age to complete this topic Rotavirus Immunization Aged Out No lo nger eligible based on patient's age to complete this topic Insurance MEDICARE C [facility] Care Teams Modeler Relationship Specialty Start Date End Date Todd Zazueta MD PCP - General Internal Medicine 12/06/22 Shanell Torres APRN, BUS DRIVER/MONITOR [address] [place] [id number] Nurse Practitioner Advanced Practice Nurse 02/15/23
--- OUTSIDE RECORDS SUMMARY | 2024-05-22 11:50 | XMS_ITS | Data Portability ---
Author Organization [facility] [place], Main Office Address [address] [place] [address] Assessment Encounter Date Assessment Date Assessment LastModified by Organization Details LastModified Time 12/06/2022 12/06/2022 Orders given for her PT INR neurology referral ENT referral blood work for chronic medical problems regular walking can try to use a Neti pot as well for her sinuses see me in 4 months [email or web address] Not available 01/07/2023 16:38:05 03/07/2023 03/07/2023 Will try gabapentin 100 t.i.d. side effects discussed INR discussed as she is getting dental work blood work discussed diagnosis discussed continue current therapy follow-up months [email or web address] Not available 03/11/2023 18:56:07 01/24/2024 01/24/2024 This note is dictated and transcribed by [employer] Software. Supervisor Fabrication variances may occur. Despite proofreading, typographical errors may occur. Occasional wrong-word or 'lejth-b-zlid' substitutions may have occurred due to the inherent limitations of voice recording. Read the chart carefully and recognize, using context, where substitutions have occurred. [email or web address] Not available 01/24/2024 14:35:26 Plan of Treatment Reminders Order Date Submit Date Provider Last Modified By Organization Details Last Modified Time Details Appointments Establish ed Patient 15 2024 11:00A M Vaughn Nathan DPM Not available Not available Not available Lab PT/INR 2022 023 [email or web address] [facility] [address] [facility], [address], [place], [address], 12/06/2022 16:31:28 glycohemo globin, total, blood 2022 023 [facility] (Lab), [address] [place], [address], 12/06/2022 20:55:41 CBC w/ auto diff 2022 023 [facility] (Lab), [address] [place], [address], 12/06/2022 16:39:50 lipid panel, serum 2022 023 [facility] (Lab), [address] [place], [address], 12/06/2022 16:52:26 CMP, serum or plasma 2022 023 [facility] (Lab), [address] [place], [address], 12/06/2022 16:52:[address] referral 2022 023 leonor Ridley MD, [address] [facility], [facility], [place], [address], 04/18/2023 09:08:14 physical therapist referral 2022 023 [facility], [address] [place], [address], 01/10/2023 15:09:51 ENT surgery referral 2022 023 leonor Avina MD, [address], [place], [address], 01/03/2023 09:25:12 Procedures None recorded. Surgeries None recorded. Imaging None recorded. Medication Orders None recorded. Patient TargetsNo targets recorded. Patient InstructionsNo instructions recorded. Reason for Referral ENT Surgery Referral for Sin usitis Referring Physician: Todd Zazueta, Internal Medicine, Encounter Date: 12/06/2022 Physical Therapist Referral for Sciatica Referring Physician: Todd Zazueta, Internal Medicine, Encounter Date: 12/06/2022 Neurologist Referral for Hea dache Referring Physician: Todd Zazueta, Internal Medicine, Encounter Date: 12/06/2022 Results Created Date Observation Date Name Description Value Unit Range Abnormal Flag Note LastModifiedBy Organization Detail LastModifiedTime 12/07/19 23 12/06/2022 CBC/C OMPLE TE BLD COUNT W/DIF F white blood cells 7.5 x10'3 /uL 4.2-10 .8 Not Available [facility] (Lab) [address] [place], [address], 12/06/2022 16:39:50 12/07/19 23 12/06/2022 CBC/C OMPLE TE BLD COUNT W/DIF F red blood cells 4.95 x10'6 /uL 3.80-5 .20 Not Available [facility] (Lab) [address] [place], [address], 12/06/2022 16:39:50 12/07/19 23 12/06/2022 CBC/C OMPLE TE BLD COUNT W/DIF F hemoglobin 14.1 g/dL 12.0-1 5.6 Not Available [facility] (Lab) [address] [place], [address], 12/06/2022 16:39:50 12/07/19 23 12/06/2022 CBC/C OMPLE TE BLD COUNT W/DIF F hematocrit 44.4 % 35.7-4 5.7 Not Available [facility] (Lab) [address] [place], [address], 12/06/2022 16:39:50 12/07/19 23 12/06/2022 CBC/C OMPLE TE BLD COUNT W/DIF F mean red cell volume 89.7 fL 82.0-9 9.0 Not Available [facility] (Lab) [address] [place], [address], 12/06/2022 16:39:50 12/07/19 23 12/06/2022 CBC/C OMPLE TE BLD COUNT W/DIF F mean red cell hemoglobin 28.5 pg 27.0-3 3.0 Not Available [facility] (Lab) [address] [place], [address], 12/06/2022 16:39:50 12/07/19 23 12/06/2022 CBC/C OMPLE TE BLD COUNT W/DIF F mean RBC HGB concentratio n 31.8 g/dL 31.0-3 6.0 Not Available [facility] (Lab) [address] [place], [address], 12/06/2022 16:39:50 12/07/19 23 12/06/2022 CBC/C OMPLE TE BLD COUNT W/DIF F red cell distribution width 15.1 % 11.8-1 5.5 Not Available [facility] (Lab) [address] [place], [address], 12/06/2022 16:39:50 12/07/19 23 12/06/2022 CBC/C OMPLE TE BLD COUNT W/DIF F platelets 309 x10'3 /uL 150-40 0 Not Available [facility] (Lab) [address] [place], [address], 12/06/2022 16:39:50 12/07/19 23 12/06/2022 CBC/C OMPLE TE BLD COUNT W/DIF F mean platelet volume 9.8 fL 9.0-12 .4 Not Available [facility] (Lab) [address] [place], [address], 12/06/2022 16:39:50 12/07/19 23 12/06/2022 CBC/C OMPLE TE BLD COUNT W/DIF F neutrophils 50.6 % 39.0-7 2.0 Not Available [facility] (Lab) [address] [place], [address], 12/06/2022 16:39:50 12/07/19 23 12/06/2022 CBC/C OMPLE TE BLD COUNT W/DIF F lymphocytes 39.6 % 16.0-4 7.0 Not Available [facility] (Lab) [address] [place], [address], 12/06/2022 16:39:50 12/07/19 23 12/06/2022 CBC/C OMPLE TE BLD COUNT W/DIF F monocytes 7.8 % 5.0-12 .0 Not Available [facility] (Lab) [address] [place], [address], 12/06/2022 16:39:50 12/07/19 23 12/06/2022 CBC/C OMPLE TE BLD COUNT W/DIF F eosinophils 1.2 % 1.0-7. 0 Not Available [facility] (Lab) [address] [place], [address], 12/06/2022 16:39:50 12/07/1912/06/2022 CBC/C OMPLE TE BLD COUNT W/DIF F basophils 0.4 % 0.0-2. 0 Not Available [facility] (Lab) [address] [place], [address], 12/06/2022 16:39:50 12/07/19 23 12/06/2022 CBC/C OMPLE TE BLD COUNT W/DIF F immature granulocytes 0.4 % 0.00-0 .50 Not Available [facility] (Lab) [address] [place], [address], 12/06/2022 16:39:50 12/07/19 23 12/06/2022 CBC/C OMPLE TE BLD COUNT W/DIF F neutrophils, absolute count 3.79 x10'3 /uL 1.5-8. 0 Not Available [facility] (Lab) [address] [place], [address], 12/06/2022 16:39:50 12/07/19 23 12/06/2022 CBC/C OMPLE TE BLD COUNT W/DIF F lymphocytes, absolute count 2.96 x10'3 /uL 1.07-3 .43 Not Available [facility] (Lab) [address] [place], [address], 12/06/2022 16:39:50 12/07/19 23 12/06/2022 CBC/C OMPLE TE BLD COUNT W/DIF F monocytes, absolute count 0.58 x10'3 /uL 0.29-0 .99 Not Available [facility] (Lab) [address] [place], [address], 12/06/2022 16:39:50 12/07/19 23 12/06/2022 CBC/C OMPLE TE BLD COUNT W/DIF F eosinophils, absolute count 0.09 x10'3 /uL 0.02-0 .53 Not Available [facility] (Lab) [address] [place], [address], 12/06/2022 16:39:50 12/07/19 23 12/06/2022 CBC/C OMPLE TE BLD COUNT W/DIF F basophils, absolute count 0.03 x10'3 /uL 0.01-0 .08 Not Available [facility] (Lab) [address] [place], [address], 12/06/2022 16:39:50 12/07/19 23 12/06/2022 CBC/C OMPLE TE BLD COUNT W/DIF F immature granulocytes ,absolute 0.03 x10'3 /uL 0.00-0 .05 Not Available [facility] (Lab) [address] [place], [address], 12/06/2022 16:39:50 12/07/19 23 12/06/2022 CBC/C OMPLE TE BLD COUNT W/DIF F nucleated red blood cells 0.0 % -0 Not Available [facility] (Lab) [address] [place], [address], 12/06/2022 16:39:50 12/07/19 23 12/06/2022 CBC/C OMPLE TE BLD COUNT W/DIF F NRBC# 0.00 x10'3 /uL Not Available [facility] (Lab) [address] [place], [address], 12/06/2022 16:39:50 12/07/19 23 12/06/2022 LIPID PANEL cholesterol 174 mg/dL 140-19 9 NIH ANGE NSUS RECOM MENDA TION FOR KARLI STERO L: ADULT CHILD LOW RISK: <200 <170 BORDE RLINE : <200- 239 ----- HIGH RISK: >240 >200 Not Available [facility] (Lab) [address] [place], [address], 12/06/2022 16:52:26 12/07/19 23 12/06/2022 LIPID PANEL triglyceride s 155 mg/dL 0-150 high NIH ANGE NSUS REPOR T RECOM MENDA TION FOR TRIGL YCERI LATOSHA: ADULT CHILD LOW RISK: <150 ----- BODER LINE: 150-1 99 ----- HIGH RISK: >200 ----- Not Available [facility] (Lab) [address] [place], [address], 12/06/2022 16:52:26 12/07/19 23 12/06/2022 LIPID PANEL HDL cholesterol 51 mg/dL 40- Not Available [facility] (Lab) [address] [place] [address], [address], 12/06/2022 16:52:26 12/07/19 23 12/06/2022 LIPID PANEL LDL cholesterol, calculated 92 mg/dL 0-130 NIH ANGE NSUS REPOR T RECOM MENDA TIONS FOR LDL: ADULT CHILD LOW RISK <130 <110 (OPTI MAL LDL) <100 ----- BORDE RLINE : 130-1 59 ----- HIGH RISK: >160 >130 A TRIGL YCERI DE RESUL T >400 INVAL IDATE S THE CALCU LATIO N FOR LDL FRACT IONAT ION - THE LDL RESUL T WILL NOT BE REPOR MODE. Not Available [facility] (Lab) [address] [place], [address], 12/06/2022 16:52:26 12/07/1912/06/2022 COMPR EHENS INDIA METAB OLIC PANEL sodium 138 mmol/ L 137-14 5 Not Available [facility] (Lab) [address] [place], [address], 12/06/2022 16:52:32 12/07/19 23 12/06/2022 COMPR EHENS [place]IA METAB OLIC PANEL potassium 3.9 mmol/ L 3.5-5. 1 Not Available [facility] (Lab) [address] [place], [address], 12/06/2022 16:52:32 12/07/19 23 12/06/2022 COMPR EHENS INDIA METAB OLIC PANEL chloride 105 mmol/ L 98-107 Not Available [facility] (Lab) [address] [place], [address], 12/06/2022 16:52:32 12/07/19 23 12/06/2022 COMPR EHENS [place] METAB OLIC PANEL carbon dioxide 29 mmol/ L 22-30 Not Available [facility] (Lab) [address] [place], [address], 12/06/2022 16:52:32 12/07/19 23 12/06/2022 COMPR EHENS [place]IA METAB OLIC PANEL anion gap 7.9 mmol/ L 14-22 low Not Available [facility] (Lab) [address] [place], [address], 12/06/2022 16:52:32 12/07/19 23 12/06/2022 COMPR EHENS INDIA METAB OLIC PANEL glucose 94 mg/dL 70-99 Not Available [facility] (Lab) [address] [place], [address], 12/06/2022 16:52:32 12/07/19 23 12/06/2022 COMPR EHENS INDIA METAB OLIC PANEL BUN 9 mg/dL 8-19 Not Available [facility] (Lab) [address] [place], [address], 12/06/2022 16:52:32 12/07/19 23 12/06/2022 COMPR EHENS [place]IA METAB OLIC PANEL creatinine 0.56 mg/dL 0.66-1 .25 low Not Available [facility] (Lab) [address] [place], [address], 12/06/2022 16:52:32 12/07/19 23 12/06/2022 COMPR EHENS [place]IA METAB OLIC PANEL GFR >60 Refer ence Range : [place] ge GFR Healt hy Adult : >60 mL/mi n/1.7 3 m2 Chron ic Kidne y Disea se: 15-60 mL/mi n/1.7 3 m2 Kidne y Failu re: <15/m L/min /1.73 m2 www.n iddk. nih.g ov The MDRD study equat ion has not been valid ated in child gilberto <18 years of age; pregn ant women ; the elder ly >85 years of age; or in some racia l or ethni c subgr oups, such as Histx nics. Outsi de the valid ated shreya eters , estim ated GFR is less accur ate, requi ring clini jazz judgm ent on a case- by-ca se basis . Clini jazz inter preta tion for other races and ages must be made by the clini jeanne. The MDRD study equat ion has not been valid ated for the evalu ation of serum creat inine relat ed to nutri kojo l statu s or medic ation usage . For perso ns <18 years of age, a pedia tric GFR calcu lator is avail able on the [facility] websi te: https ://corby jones.jb dutta/milla fernandez s/kdo qi/gf r_cal culat or Not Available [facility] (Lab) [address] [place], [address], 12/06/2022 16:52:32 12/07/19 23 12/06/2022 COMPR EHENS INDIA METAB OLIC PANEL alkaline phosphatase 118 U/L 38-126 Not Available [facility] (Lab) [address] [place], [address], 12/06/2022 16:52:32 12/07/19 23 12/06/2022 COMPR EHENS INDIA METAB OLIC PANEL alanine aminotransfe rase 28 U/L 0-35 Not Available [facility] (Lab) [address] [place], [address], 12/06/2022 16:52:32 12/07/19 23 12/06/2022 COMPR EHENS [place] METAB OLIC PANEL aspartate aminotransfe rase 29 U/L 15-37 Not Available [facility] (Lab) [address] [place], [address], 12/06/2022 16:52:32 12/07/19 23 12/06/2022 COMPR EHENS [place] METAB OLIC PANEL bilirubin, total 0.50 mg/dL 0.20-1 .30 Not Available [facility] (Lab) [address] [place], [address], 12/06/2022 16:52:32 12/07/19 23 12/06/2022 COMPR EHENS INDIA METAB OLIC PANEL calcium 9.2 mg/dL 8.4-10 .2 Not Available [facility] (Lab) [address] [place], [address], 12/06/2022 16:52:32 12/07/19 23 12/06/2022 COMPR EHENS [place]IA METAB OLIC PANEL total protein 7.2 g/dL 6.3-8. 2 Not Available [facility] (Lab) [address] [place], [address], 12/06/2022 16:52:32 12/07/19 23 12/06/2022 COMPR EHENS INDIA METAB OLIC PANEL albumin 4.2 g/dL 3.0-4. 4 Not Available [facility] (Lab) [address] [place], [address], 12/06/2022 16:52:32 12/07/19 23 12/06/2022 COMPR EHENS INDIA METAB OLIC PANEL globulin 3.0 g/dL 2.6-4. 2 Not Available [facility] (Lab) [address] [place], [address], 12/06/2022 16:52:32 12/07/19 23 12/06/2022 COMPR EHENS INDIA METAB OLIC PANEL A/G ratio 1.4 ratio 1.0-2. 0 Not Available [facility] (Lab) [address] [place], [address], 12/06/2022 16:52:32 12/07/19 23 12/06/2022 HEMOG LOBIN A1C HA1C 7.0 % 4.0-6. 0 high Diabe any Scree laura Crite burt: <5.7% Consi stent with absen ce of diabe any 5.7-6 .4% Consi stent with incre ased risk for diabe any (pred iabet es) >OR=6 .5% Consi stent with diabe any REFER ENCE: Diabe any Care 2016, 39(Sánchez ppl.1 ):s13 -s22 Not Available [facility] (Lab) [address] [place], [address], 12/06/2022 20:55:41 12/07/19 23 12/06/2022 PT/IN R PT 43.4 Not Available [facility] [address], [place], [address], 12/06/2022 12:12:30 12/07/19 23 12/06/2022 PT/IN R INR 3.6 Not Available [facility] [address], [place], [address], 12/06/2022 12:12:30 01/26/20 23 01/25/2023 PT/IN R PT 36.2 Not Available [facility] [address], [place], [address], 01/25/2023 11:19:38 01/26/20 23 01/25/2023 PT/IN R INR 3.0 Not Available [facility] [address], [place], [address], 01/25/2023 11:19:38 05/09/19 24 05/09/2023 PT/IN R PT 21.9 Not Available [facility] [address], [place], [address], 05/09/2023 12:08:11 05/09/19 24 05/09/2023 PT/IN R INR 1.8 Not Available [facility] [address], [place], [address], 05/09/2023 12:08:11 12/16/19 23 12/13/2022 CT, head, w/o contr ast No observ ation record ed. [facility] [address], [place], [address], 03/14/2023 13:09:01 04/19/20 23 04/19/2023 screlorena welch t odell, bilat [facility] [address] [place] [address] Patireyna t Name: MIKIE FERRERA ion #: [id number] Sex: F : 1949 9 Dictat ed By: Maryann Garcia Attend ing Physic veda: REESE ZAZUETA Orderi ng Physic veda: REESE ZAZUETA Exam Date: 2022 09:35 AM Exam Name: MG SCRN BREAST ODELL BILAT Admitt ing Diagno sis(es ): SCREEN ING MAMMOG ANGELA WITH TOMOSY NTHESI S: REASON FOR EXAM: screen ing mammog angela COMPAR JAVIER: 2021 TECHNI QUE: Bilate ral CC and MLO views obtain ed. Images were obtain ed using a Digita l [employer]os[employer] nthesi s Unit. Standa rd 2D and 3D Tomosy nthesi s images were review ed. FINDIN GS: BREAST COMPOS ITION: There are scatte red areas of fibrog landul ar densit y in the bilate ral breast s. In the right breast , no asymme trical parenc hymal patter n, danielle ectura l distor tion, pleomo rphic microc alcifi cation s or masses . In the left breast , no asymme trical parenc hymal patter n, danielle ectura l distor tion, pleomo rphic microc alcifi cation s or masses . IMPRES TEA: No findin gs of malign naa. Recomm end annual mammog angela. BIRADS : 2 - Benign Electr onical ly Signed by: Maryann Garcia at 2022 10:38: 50 AM Page [email or web address] [facility] (Imaging) [address] [place], [address], 05/01/2023 11:19:49 04/19/20 23 04/19/2023 DEXA, axial skele ton [facility] [address] [place] [address] Patireyna t Name: MIKIE FERRERA Access ion #: [id number] Sex: F : 1949 9 Dictat ed By: Ger Julio Attend ing Physic veda: REESE [facility]AZ[facility]A [facility]: REESE ZAZUETA Exam Date: 2022 09:41 AM Exam Name: XR DEXA-H IPS PELVIS SPINE Admitt ing Diagno sis(es ): INDICA TION: Postme nopaus al DEXA SCAN: BONE DENSIT Y REPORT : AP SPINE (L2-L4 ) : T Score: 0.2 LEFT HIP TOTAL : T Score: -1.2 RT HIP TOTAL : T Score: -1.3 10 YEAR FRACTU RE RISK* not report ed IMPRES TEA: osteop enia bilate ral hips. Normal lumbar spine ------ ------ ------ ------ ------ ------ ------ ------ ----- *FRAX versio n 3.08. Fractu re probab ility calcul ated for an untrea mode patien t. Fractu re probab ility may be lower if the patien t has receiv ed treatm ent. T-scor e: compar javier by pito hidalgo deviat ion (SD) to a young adult popula tion, matche d for sex and ethnic ity (used for postme nopaus al women and men >50 years) and classi fied by WHO criter ia. ?-1.0: normal <-1.0 to >-2.5: osteop enia ?-2.5: osteop orosis ?-2.5 plus fragil ity fractu re: severe osteop orosis Page 1 [facility] [address], [place] [address] Patien t Name: MIKIE FERRERA Access ion #: [id number] Sex: F : 1949 9 Dictat ed By: Ger Julio Attend ing Physic veda: DANIELLE JOHNSON Orderi Physic veda: REESE ZAZUETA Exam Date: 2022 09:41 AM Exam Name: XR DEXA-H IPS PELVIS SPINE Admitt ing Diagno sis(es ): Z-scor e: compar ed by SD to an age, sex, and ethnic ity popula tion (used for premen opausa l women, men <50 years, and childr en instea d of T-scor e WHO criter ia 4) <-2.0: below expect ed range/ low bone densit y for age, and a cause should be sought Electr onical ly Signed by: Ger Julio at 2022 15:21: 57 PM Page [email or web address] [facility] ([facility]) [address] [place], [address], 05/01/2023 11:19:49 Result Notes None recorded. Problems Name Problem SNOMED Code Status Onset Date Resolution Date Notes Provider Name and Address Organization Details Recorded Time Callosit y on toe 028462062 Active 2022 Not Available [facility] 4 03:56:14 Bunion 550519190 Active 2022 Not Available [facility] 4 03:56:15 Cigarett e smoker 59339340 Active 2022 Not Available [facility] 4 03:56:15 Bunion 229443257 Active 2022 Not Available [facility] 4 03:56:15 Pain of toes of bilatera l feet 45635174076 574521 Active 2022 Not Available [facility] 4 03:56:14 Chronic pain syndrome 402740761 Active 2022 Not Available [facility] 4 03:56:15 Microsco pic hematuri a 880116729 Active 2022 Not Available [facility] 4 03:56:14 Sciatica 57296229 Active 2022 Not Available [facility] 4 03:56:14 Dystroph ia unguium 64427318 Active 2023 Vaughn Nathan DPM [address], [place], [address] , [employer] 4 14:35:32 Diabetes mellitus 09520495 Active 2023 Vaughn Nathan DPM [address], [place], [address] , [employer] 4 14:35:40 Diabetic peripher al neuropat hy 694909603 Active 2023 Vaughn Nathan DPM [address], [place], [address] , [employer] 4 14:35:48 Acquired bilatera l pes planus 68442442172 027205 Active 2019 Not Available [facility] 4 03:56:14 Hypercho lesterol emia 22576614 Active 2016 Not Available [facility] 4 03:56:14 Pain in both feet 60257260515 807625 Active 2021 Not Available [facility] 4 03:56:14 Bilatera l bone spur of calcaneu m 52095344430 959659 Active Not Available [facility] 4 03:56:14 Dry skin 55362922 Active bilatera l feet Not Available [facility] 4 03:56:14 Vertebro basilar artery syndrome 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 Active Not Available [facility] 4 03:56:14 Localize d, primary osteoart hritis of the pelvic region and thigh 750373906 Active Not Available [facility] 4 03:56:14 Partial thicknes s rotator cuff tear 203146267 Active Not Available [facility] 4 03:56:14 Abdomina l pain 30638599 Active Not Available [facility] 4 03:56:14 Foot callus 884368010 Active 2020 Not Available [facility] 4 03:56:14 Cerebrov ascular accident 323850151 Active 2016 Not Available [facility] 4 03:56:14 Increase d blood pressure 29210196 Completed Not Available [facility] 3 04:48:35 Headache 01727906 Active 2021 Not Available [facility] 4 03:56:14 Pure hypercho lesterol emia 299253995 Active Not Available [facility] 4 03:56:14 Shoulder joint pain 692833677 Active Not Available [facility] 4 03:56:14 Low back pain 436803939 Active Not Available [facility] 4 03:56:14 Type 2 diabetes mellitus without complica tion 497908247 Active 2020 Not Available [facility] 4 03:56:14 Pain of toe of left foot 20631213615 9108 Active 2022 Not Available [facility] 4 03:56:14 Pain in right hip joint 36741982664 9102 Active 2021 Not Available [facility] 4 03:56:15 Sinusiti s 81608267 Active Not Available [facility] 4 03:56:15 Hyperten sive disorder 99246544 Active 2016 Not Available [facility] 4 03:56:15 Divertic ular disease of colon 669642243 Active Not Available [facility] 4 03:56:15 Chronic sinusiti s 76298651 Active 2021 Not Available [facility] 4 03:56:15 Chronic daily headache 98840124689 4102 Active 2021 Not Available [facility] 4 03:56:15 Leg length inequali ty 84521651 Active 2019 Not Available [facility] 4 03:56:15 Closed fracture of shaft of metacarp al bone 42015455 Active Not Available [facility] 4 03:56:15 Hip pain 15648444 Active Not Available [facility] 4 03:56:15 Coronary arterios clerosis 90589277 Active 2021 Not Available [facility] 4 03:56:15 Acute upper respirat ory infectio n 72556902 Active 2022 Not Available [facility] 4 03:56:15 Nicotine dependen ce 33756397 Active 2021 Not Available [facility] 4 03:56:15 [facility] hyperten tea 68799121 Active 2016 Not Available [facility] 4 03:56:15 Fracture of forearm 95275669 Active Not Available [facility] 4 03:56:15 Acid reflux 234676400 Active 2016 Not Available [facility] 4 03:56:15 Rhinitis 32251466 Active Not Available [facility] 4 03:56:15 Sleep apnea 55456687 Active 2021 Not Available [facility] 4 03:56:15 Smoker 06257217 Active Not Available [facility] 4 03:56:15 Chronic pansinus itis 01518660 Active 2021 Not Available [facility] 4 03:56:15 Lipoma 88550276 Active Not Available [facility] 4 03:56:15 Notes:2 heart stents Problem Notes None recorded. Procedures Surgical History Date Name Laterality Status Provider Name and Address Organization Details Recorded Time 03/27/20 24 Nail Debridement completed LISANDRA Rich, [address], [place], [address], [employer] [facility] [employer] [place] [employer] 03/31/2024 09:42:17 03/27/20 24 Callus Debridement 2-4 completed Vaughn Nathan DPM [address], [address], [place], [address], [employer] 03/31/2024 09:42:10 01/24/20 24 Nail Debridement completed Vaughn Nathan DPM [address], [address], [place], [address], [employer] [facility] [employer] [place] [employer] 03/06/2024 09:07:39 06/07/19 24 Nail Debridement completed Vaughn Nathan DPM [address], [address], [place], [address], [facility] [employer] 06/07/2023 13:31:16 06/07/19 24 Callus Debridement 2-4 completed Vaughn Nathan DPM [address], [address], [place], [address], [facility] [employer] 06/07/2023 13:31:03 07/21/19 23 Nail Debridement completed Vaughn Nathan DPM [address], [address], [place], [address], [facility] [employer] [facility] [employer] [facility] 07/20/2022 12:12:31 07/21/19 23 Callus Debridement 2-4 completed Vaughn Nathan DPM [address], [address], [place], [address], [facility] [employer] [facility] 07/20/2022 12:12:38 05/11/19 22 ENDOSCOPY WITH REMOVAL OF SPHENOID SINUS TISSUE (SURG) completed Not Available [facility] 06/21/2022 04:56:56 06/04/19 19 Cataract Surgery completed Not Available [facility] 06/21/2022 04:42:19 03/07/20 18 Exc h-f-nk-sp b9+kanwal 1.1-2 completed Not Available [employer] 06/21/2022 04:42:19 03/07/20 18 Exc tr-ext b9+kanwal 0.6-1 cm completed Not Available [facility] 06/21/2022 04:42:19 12/07/19 18 Exc tr-ext b9+kanwal 2.1-3cm completed Not Available [facility] 06/21/2022 04:42:19 12/07/19 18 Intmd rpr s/a/t/ext 2.6-7.5 completed Not Available [employer] 06/21/2022 04:42:19 Cardiac Stent Placement completed Not Available [facility] 06/21/2022 04:42:19 Excisions - Specify completed Not Available [facility] 06/21/2022 04:42:19 Orthopedic Surgery completed Not Available [facility] 06/21/2022 04:42:19 Imaging Results Imaging Date Name Status LastModified by Organ ation Details LastModified Time 12/13/2022 CT, head, w/o contrast completed [email or web address] [facility] [address] [place], [address], 03/14/2023 13:09:01 04/19/2023 screening breast odell, bilat completed [email or web address] (Imaging) [address] [place], [address], 05/01/2023 11:19:49 04/19/2023 DEXA, axial skeleton completed [email or web address] ([facility]) [address] [place], [address], 05/01/2023 11:19:49 Procedure Notes None recorded. Medical Equipment None Reported. Allergies Allergen ID Allergen Name Allergen Category Reaction Reaction Severity Criticality Documentation Date Start Date Code Code System Note Provider Name and Address Organization Details Recorded Time 7079 Product containin g penicilli n and antibioti c (product) medicatio n nausea Not available Not available 06/21/2022 14486 05 SNOMED feels shake y insid e Not Available [facility] 3 04:56:29 7080 Keflex medicatio n Not available Not available Not available 06/21/2022 20478 7 RxNorm state s she feels reall y bad when she takes it. Not Available [facility] 3 04:56:29 7081 Iodinated contrast media (substanc e) medicatio n Not available Not available Not available 06/21/2022 96117 2004 SNOMED Not Available [facility] 3 04:56:29 7082 codeine medicatio n nausea Not available Not available 06/21/2022 2670 RxNorm feels shake y insid e Not Available [facility] 3 04:56:30 7083 aspirin medicatio n Not available Not available Not available 06/21/2022 1191 RxNorm Not Available [facility] 3 04:56:30 Medications Name Sig Start Date Stop Date Status Note LastModified by Organization Details LastModified Time accu-chek guide test strips strp active Not Available Not Available Not Available cyclobenz aprine 10 mg tablet TAKE 1 TABLET BY MOUTH EVERY 8 HOURS active Not Available Not Available No t Available carvedilo l 25 mg tablet TAKE ONE-HALF TABLET BY MOUTH TWICE DAILY active Not Available Not Available No t Available clonidine HCl 0.1 mg tablet TAKE 1 TABLET BY MOUTH TWICE DAILY active Not Available Not Available No t Available prednison e 10 mg tablet Take by oral route. active Not Available Not Available No t Available doxycycli ne hyclate 100 mg capsule TAKE 1 CAPSULE BY MOUTH TWICE DAILY FOR 10 DAYS 07/27 completed Not Available Not Available Not Available atorvasta tin 20 mg tablet TAKE 1 TABLET BY MOUTH ONCE DAILY active Not Available Not Available No t Available nicotine 14 mg/24 hr daily transderm al patch Apply 1 patch every day by transder mal route. 12/25 completed Not Available Not Available Not Available Ceftin 500 mg tablet Take 1 tablet every 12 hours by oral route for 7 days. 01/22 completed Not Available Not Available Not Available clindamyc in HCl 300 mg capsule Take 1 capsule every 6 hours by oral route. active Not Available Not Available No t Available ammonium lactate 12 % lotion APPLY TOPICALL Y TO BOTH FEET TWICE DAILY 04/26 completed Not Available Not Available Not Available atorvasta tin 10 mg tablet TAKE 1 TABLET BY MOUTH ONCE DAILY 11/16 completed changed to 20mg by Dr Zazueta at visit 11/17/19 22 Not Available Not Available Not Available azithromy conchis 250 mg tablet TAKE 2 TABLETS BY MOUTH ON DAY 1, AND THEN TAKE 1 TABLET BY MOUTH ONCE A DAY ON DAY 2 THROUGH DAY 5 08/10 completed Not Available Not Available Not Available ibuprofen 800 mg tablet 07/23 completed Not Available Not Available Not Available ofloxacin 0.3 % eye drops 08/28 completed Not Available Not Available Not Available tizanidin e 4 mg tablet TAKE 1 TABLET BY MOUTH TWICE DAILY NEEDED FOR BACK SPASM--P t needs apt in Mar. active Not Available Not Available No t Available fluconazo le 150 mg tablet Take 1 tablet every day by oral route for 1 day. 01/17 completed Not Available Not Available Not Available benzonata te 200 mg capsule TAKE 1 CAPSULE BY MOUTH THREE TIMES DAILY NEEDED active Not Available Not Available No t Available hydrocodo ne 5 mg-acetam inophen 325 mg tablet TAKE 1 TABLET BY MOUTH THREE TIMES DAILY NEEDED active Not Available Not Available No t Available warfarin 7.5 mg tablet TAKE 1 TABLET BY MOUTH DAILY active Not Available Not Available No t Available lisinopri l 20 mg tablet Take 1 tablet every day by oral route as directed for 90 days. 05/13 completed Not Available Not Available Not Available prednison e 20 mg tablet 03/07 completed Not Available Not Available Not Available terconazo le 0.8 % vaginal cream active Not Available Not Available Not Available clindamyc in HCl 150 mg capsule 08/28 completed Not Available Not Available Not Available Accu-Chek Softclix Lancets USE TWICE DAILY TO CHECK BLOOD GLUCOSE active Not Available Not Available No t Available acetamino phen 300 mg-codein e 30 mg tablet TAKE 1 TABLET BY MOUTH TWICE DAILY NEEDED active Not Available Not Available No t Available clopidogr el 75 mg tablet 06/05 completed Not Available Not Available Not Available chlorthal idone 25 mg tablet TAKE 1 TABLET BY MOUTH ONCE DAILY active Not Available Not Available No t Available ciproflox acin 500 mg tablet Take 1 tablet twice a day by oral route for 7 days. 04/30 completed Not Available Not Available Not Available sulfameth oxazole 800 mg-trimet hoprim 160 mg tablet Take 1 tablet every 12 hours by oral route for 10 days. 01/17 completed Not Available Not Available Not Available aspirin 81 mg tablet,de layed release Take 1 tablet every day by oral route. 06/09 completed Not Available Not Available Not Available tramadol 50 mg tablet Take 1 tablet twice a day by oral route as needed. 12/06 completed Not Available Not Available Not Available ketorolac 0.5 % eye drops 08/28 completed Not Available Not Available Not Available Nicoderm CQ 7 mg/24 hr daily transderm al patch Apply 1 patch every day by transder mal route. active Not Available Not Available No t Available oxycodone -acetamin ophen 5 mg-325 mg tablet 06/05 completed Not Available Not Available Not Available amoxicill in 875 mg tablet 02/06 completed Not Available Not Available Not Available famotidin e 20 mg tablet Take 1 tablet twice a day by oral route. 11/16 completed Not Available Not Available Not Available prednisol one acetate 1 % eye drops,isabelle pension 06/05 completed Not Available Not Available Not Available Kenalog 10 mg/mL suspensio n for injection In office injectio n administ ered by the provider 12/29 completed [facility]: [id number] 4-20 Not Available Not Available Not Available amitripty line 10 mg tablet TAKE 1 TABLET BY MOUTH NIGHTLY active Not Available Not Available No t Available meclizine 25 mg tablet 07/18 completed Not Available Not Available Not Available amlodipin e 10 mg tablet TAKE 1 TABLET BY MOUTH DAILY active Not Available Not Available No t Available hydrocodo ne 7.5 mg-acetam inophen 325 mg tablet TAKE 1 TABLET BY MOUTH EVERY 4 HOURS NEEDED 06/09 completed Not Available Not Available Not Available cephalexi n 500 mg capsule TAKE 1 CAPSULE BY MOUTH THREE TIMES DAILY FOR 7 DAYS active Not Available Not Available No t Available ranitidin e 150 mg tablet TAKE 1 TABLET TWICE A DAY active Not Available Not Available No t Available warfarin 5 mg tablet Take 1 tablet by mouth daily as directed active Not Available Not Available No t Available nicotine 21 mg/24 hr daily transderm al patch Apply 1 patch every day by transder mal route. 12/25 completed Not Available Not Available Not Available omeprazol e 20 mg capsule,d elayed release TAKE ONE CAPSULE EVERY DAY 02/15 completed Not Available Not Available Not Available monteluka st 10 mg tablet TAKE 1 TABLET BY MOUTH ONCE DAILY 11/06 completed Not Available Not Available Not Available hydrochlo rothiazid e 25 mg tablet TAKE 1 TABLET (25 MG) BY ORAL ROUTE ONCE DAILY prn edema active Not Available Not Available No t Available mupirocin 2 % topical ointment 06/05 completed Not Available Not Available Not Available gabapenti n 100 mg capsule Take 2 capsules 3 times a day by oral route for 30 days. active Not Available Not Available No t Available azelastin e 137 mcg (0.1 %) nasal spray [place] 2 sprays twice a day by intranas al route. 01/18 completed Not Available Not Available Not Available levofloxa conchis 500 mg tablet TAKE 1 TABLET BY MOUTH ONCE DAILY FOR 21 DAYS 03/07 completed Not Available Not Available Not Available methylpre dnisolone 4 mg tablets in a dose pack TAKE BY MOUTH DIRECTED ON INSIDE OF PACKAGE 08/11 completed Not Available Not Available Not Available Vitamin D2 1,250 mcg (50,000 unit) capsule TAKE 1 CAPSULE BY MOUTH EVERY 2 WEEKS active Not Available Not Available No t Available ondansetr on 4 mg disintegr ating tablet 07/18 completed Not Available Not Available Not Available cefdinir 300 mg capsule TAKE 1 CAPSULE BY MOUTH TWICE DAILY FOR 7 DAYS 07/28 completed Not Available Not Available Not Available fluticaso ne propionat e 50 mcg/actua tion nasal spray,isabelle pension 2 sprays each nostril daily 07/23 completed Not Available Not Available Not Available metformin ER 500 mg tablet,ex tended release 24 hr TAKE 1 TABLET BY MOUTH ONCE DAILY active Not Available Not Available No t Available doxycycli ne hyclate 100 mg tablet Take 1 tablet twice a day by oral route for 10 days. active Not Available Not Available No t Available amoxicill in 875 mg-potass ium clavulana te 125 mg tablet 03/07 completed Not Available Not Available Not Available Crestor 10 mg tablet Take 1 tablet every day by oral route. 06/02 completed insuranc e will no longer cover, changed to atorvast atin Not Available Not Available Not Available Multiple Vitamin, Womens tablet Take by oral route. 2021 active Not Available Not Available Not Avai lable cod liver oil 2021 active Not Available Not Available Not Avai lable Vitamin C 2021 active Not Available Not Available Not Avai lable Gas-X Extra Strength 2021 active Not Available Not Available Not Avai lable mometason e 0.1 % topical solution APPLY 2 DROPS TWICE DAILY NEEDED FOR ITCHY EARS 07/28 completed Not Available Not Available Not Available lidocaine (PF) 10 mg/mL (1 %) injection solution In office injectio n administ ered by the provider 12/29 completed [facility]: 0409-427 10-07 Not Available Not Available Not Available varenicli ne tartrate 1 mg tablet TAKE 1 TABLET BY MOUTH TWICE DAILY 07/27 completed Not Available Not Available Not Available varenicli ne tartrate 0.5 mg (11)-1 mg (42) tablets in a dose pack use as directed 04/26 completed Not Available Not Available Not Available ProAir HFA 90 mcg/actua tion aerosol inhaler Inhale 2 puffs every 4-6 hours by inhalati on route as needed. 07/23 completed Not Available Not Available Not Available CoQ10 SG 100 200 mg 2021 active Not Available Not Available Not Maris charles Bystolic 10 mg tablet TAKE 1 TABLET DAILY active Not Available Not Available No t Available omeprazol e 20 mg tablet,de layed release Take 1 tablet every day by oral route. 05/08 completed Not Available Not Available Not Available GaviLyte- G 236 gram-22.7 4 gram-6.74 gram-5.86 gram oral solution 02/21 completed Not Available Not Available Not Available Probiotic 2021 active Not Available Not Available Not Maris charles Suprep Bowel Prep Kit 17.5 gram-3.13 gram-1.6 gram oral solution 09/09 completed Not Available Not Available Not Available Breo Ellipta 100 mcg-25 mcg/dose powder for inhalatio n USE 1 INHALATI ON BY MOUTH ONCE DAILY AT THE SAME TIME EACH DAY active Not Available Not Available No t Available Accu-Chek Guide test strips USE TWICE DAILY TO CHECK BLOOD GLUCOSE 2022 active Not Available Not Available Not Maris chrales Accu-Chek Guide Glucose Meter USE TWICE DAILY TO CHECK BLOOD GLUCOSE active Not Available Not Available No t Available vitamin B12 1,000 mcg-folic acid 400 mcg sublingua l lozenge Place by sublingu al route. 2021 active Not Available Not Available Not Maris charles Vitals Date Recorded Body height Body mass index (BMI) Body weight Body temperature Heart rate Systolic blood pressure Diastolic blood pressure Provider Name and Address Organization Details Last Updated DateTime 3 154.94 cm 26.5 kg/m2 54358.9 3 g 97.6 [degF] 68 /min 130 mm[Hg] 74 mm[Hg] SNEHAL Dugan [place] [facility] [facility] 3 11:58:47 Date Recorded Body height Body mass index (BMI) Body weight Body temperature Heart rate Systolic blood pressure Diastolic blood pressure Provider Name and Address Organization Details Last Updated DateTime 3 154.94 cm 26.6 kg/m2 76980.5 2 g 98.5 [degF] 76 /min 136 mm[Hg] 70 mm[Hg] SNEHAL Dugan [facility] [employer] [facility] 3 11:23:01 Date Recorded Body height Body mass index (BMI) Body weight Heart rate Respiratory rate Oxygen saturation Oxygen saturation in Arterial blood by Pulse oximetry Systolic blood pressure Diastolic blood pressure Provider Name and Address Organization Details Last Updated DateTime 4 154.94 cm 26.6 kg/m2 98730.5 2 g 76 /min 14 /min 98 % 98 % 170 mm[Hg] 100 mm[Hg] Zarina Sharma [facility] 4 11:26:59 Date Recorded Body height Body mass index (BMI) Body weight Heart rate Respiratory rate Oxygen saturation Oxygen saturation in Arterial blood by Pulse oximetry Systolic blood pressure Diastolic blood pressure Provider Name and Address Organization Details Last Updated DateTime 4 154.94 cm 26.6 kg/m2 18172.5 2 g 75 /min 14 /min 98 % 98 % 143 mm[Hg] 75 mm[Hg] Zarina Sharma [facility] 4 14:05:19 Date Recorded Body height Body mass index (BMI) Body weight Heart rate Respiratory rate Oxygen saturation Oxygen saturation in Arterial blood by Pulse oximetry Systolic blood pressure Diastolic blood pressure Provider Name and Address Organization Details Last Updated DateTime 4 154.94 cm 26.6 kg/m2 90810.5 2 g 79 /min 14 /min 98 % 98 % 151 mm[Hg] 78 mm[Hg] Zarina Sharma [facility] [employer] [facility] 4 11:40:09 Social History Question Answer Notes LastModified by Organization Details LastModified Time Tobacco Smoking Status Current Every Day Smoker Not Available [facility] 06/21/2022 04:05:29 Do You Have An Advance Directive? No MIGRATION.0301 [id number] Information not available 06/21/2022 What Is Your Level Of Alcohol Consumption? Occasional MIGRATION.0301 [id number] Information not available 06/21/2022 Are You Blind Or Do You Have Difficulty Seeing? No MIGRATION.030 [id number] Information not available 06/21/2022 What Is Your Level Of Caffeine Consumption? Occasional MIGRATION.0301 [id number] Information not available 06/21/2022 How Much Tobacco Do You Chew? None MIGRATION.0301 [id number] Information not available 06/21/2022 In The 14 Days Before Symptom Onset, Have You Had Close Contact With A Laboratory-confi rmed COVID-19 While That Case Was Ill? No MIGRATION.030 [id number] Information not available 06/21/2022 In The 14 Days Before Symptom Onset, Have You Had Close Contact With A Person Who Is Under Investigation For COVID-19 While That Person Was Ill? No MIGRATION.0301 [id number] Information not available 06/21/2022 Are You Deaf Or Do You Have Serious Difficulty Hearing? No MIGRATION.0301 [id number] Information not available 06/21/2022 What Type Of Diet Are You Following? REGULAR MIGRATION.030 [id number] Information not available 06/21/2022 Which Illicit Or Recreational Drugs Have You Used? None MIGRATION.030 298591 Information not available 06/21/2022 Do You Or Have You Ever Used E-cigarettes Or Vape? Never Used Electronic Cigarettes MIGRATION.030 [id number] Information not available 06/21/2022 What Is The Highest Grade Or Level Of School You Have Completed Or The Highest Degree You Have Received? 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 Yes Son MIGRATION.030 [id number] Information not available 06/21/2022 What Is The Fluoride Status Of Your Home? Unknown MIGRATION.030 015344 Information not available 06/21/2022 Are There Any Guns Present In Your Home? No MIGRATION.0301 [id number] Information not available 06/21/2022 Do You Use Insect Repellent Routinely? No MIGRATION.0301 [id number] Information not available 06/21/2022 Where Do You Live? SingleLevelHouse MIGRATION.0301 [id number] Information not available 06/21/2022 Do You Have A Medical Power Of Start Up Specialist? No MIGRATION.0301 [id number] Information not available 06/21/2022 What Was The Date Of Your Most Recent Tobacco Screening? 03/07/2023 [email or web address] Information not available 03/07/2023 What Is Your Current Pack Years? 30ormorepackyears MIGRATION.0301 [id number] Information not available 06/21/2022 Have You Ever Been Counseled For Unhealthy Alcohol Use? No MIGRATION.0301 008102 Information not available 06/21/2022 Do You Have Any Pets? No MIGRATION.0301 [id number] Information not available 06/21/2022 What Is Your Relationship Status? MIGRATION.0301 [id number] Information not available 06/21/2022 Do You Use Your Seat Belt Or Car Seat Routinely? Yes MIGRATION.0301 [id number] Information not available 06/21/2022 Do You Have Smoke And Carbon Monoxide Detectors In Your Home? Yes MIGRATION.0301 018737 Information not available 06/21/2022 Are You Passively Exposed To Smoke? No MIGRATION.0301 [id number] Information not available 06/21/2022 Do You Or Have You Ever Used Smokeless Tobacco? Never Used Smokeless Tobacco MIGRATION.0301 [id number] Information not available 06/21/2022 Are There Any Smokers In Your House? No MIGRATION.0301 533367 Information not available 06/21/2022 How Much Tobacco Do You Smoke? 0.5 PPD Down To 1 Cig/day [email or web address] Information not available 12/06/2022 What Types Of Sporting Activities Do You Participate In? None MIGRATION.0301 448115 Information not available 06/21/2022 Do You Feel Stressed (tense, Restless, Nervous, Or Anxious, Or Unable To Sleep At Night)? [id number] MIGRATION.0301 [id number] Information not available 06/21/2022 Do You Use Any Illicit Or Recreational Drugs? No MIGRATION.0301 441796 Information not available 06/21/2022 Do You Use Sunscreen Routinely? No MIGRATION.0301 433674 Information not available 06/21/2022 Has Tobacco Cessation Counseling Been Provided? No MIGRATION.0301 [id number] Information not available 06/21/2022 Have You Recently Traveled Abroad? No MIGRATION.0301 509376 Information not available 06/21/2022 Do You Have Any Dietary Restrictions? No MIGRATION.0301 695937 Information not available 06/21/2022 Do You Or Have You Ever Used Any Other Forms Of Tobacco Or Nicotine? No MIGRATION.0301 505389 Information not available 06/21/2022 Sex: Female Functional Status Question Answer Note LastModified by [employer] Details LastModified Time Do you have difficulty walking or climbing stairs? Yes MIGRATION.[id number] 026 Information not available 06/21/2022 Do you have transportation difficulties? No MIGRATION.4983209 026 Information not available 06/21/2022 Are you able to walk? YESWOREST MIGRATION.0199400 026 Information not available 06/21/2022 Do you have difficulty doing errands alone? No MIGRATION.0404541 026 Information not available 06/21/2022 Are you able to care for yourself? Yes MIGRATION.[id number] 026 Information not available 06/21/2022 Do you have difficulty dressing or bathing? No MIGRATION.5166766 026 Information not available 06/21/2022 What is your exercise level? Occasional MIGRATION.[id number] 026 Information not available 06/21/2022 Mental Status Question Answer Note LastModified by [employer] Details LastModified Time Do you have difficulty concentrating, remembering or making decisions? No MIGRATION.[id number] 6 Information not available 06/21/2022 Family History Relationship Description Onset Age of this Age Resolved Age Notes LastModified by Organization Details LastModified Time Mother Malignant tumor of ovary MIGRATION.158 [id number] Not available 06/21/2022 04:42:20 Mother Hypercholest erolemia MIGRATION.556 [id number] Not available 06/21/2022 04:42:20 Mother Hypertensive disorder MIGRATION.485 [id number] Not available 06/21/2022 04:42:20 Sister Hypercholest erolemia MIGRATION.383 [id number] Not available 06/21/2022 04:42:20 Sister Hypertensive disorder MIGRATION.943 [id number] Not available 06/21/2022 04:42:21 Sister Colitis MIGRATION.387 [id number] Not available 06/21/2022 04:42:21 Father Neoplasm of brain MIGRATION.091 [id number] Not available 06/21/2022 04:42:21 Brother Malignant tumor of prostate MIGRATION.249 [id number] Not available 06/21/2022 04:42:21 Brother Diabetes mellitus MIGRATION.183 [id number] Not available 06/21/2022 04:42:21 Medical History Condition Response NERVE DISEASE N BLINDNESS N RHEUMATIC FEVER N KIDNEY STONES Y BLADDER PROBLEMS N MRSA N OTHER # 1 Y POLIO N LUNG DISEASE/DISORDER N RADIATION / CHEMOTHERAPY N COPD Y Other # 2 N BLOOD DISEASES N EAR OR HEARING PROBLEMS N MUMPS N BOWEL PROBLEMS Y DEPRESSION (INCLUDING POST ) N STROKE/TIA N ULCERS N BENIGN PROSTATIC HYPERPLASIA N MEASLES N MYOCARDIAL INFARCTION N OBESITY N GERD/NAUSEA N ANEURYSM N URINARY/BLADDER/KIDNEY PROBLEMS N CORONARY ARTERY DISEASE (CAD) Y ADDICTION CONCERNS N ENDOMETRIOSIS N Impotence N USE OF BLOOD THINNERS N SKIN PROBLEMS N GASTROINTESTINAL DISORDER N PERIPHERAL VASCULAR DISEASE N MUSCLE,JOINT OR BONE PROBLEMS N GASTROINTESTINAL BLEEDING N BLOOD CLOTS N ASTHMA N CATARACTS Y ERECTILE DYSFUNCTION N VARICOSITIES N GI PROBLEMS N Low Testosterone N INFERTILITY N AIDS/HIV N CHEMOTHERAPY / RADIATION N LIVER DISEASE N MALE HYPOGONADISM N HYPERTENSION Y Deficiency N TOURETTE'S N ANXIETY DISORDER N BLOOD TRANSFUSION N ANEMIA/BLOOD DISORDER N CHRONIC EAR INFECTIONS N BRONCHITIS N TUBERCULOSIS N GLAUCOMA N FOOT PROBLEM N DIVERTICULITIS N SLEEP APNEA N CHICKENPOX N INFECTIOUS DISEASE N HEART ARRHYTHMIA N PROSTATE N INSOMNIA N HIGH CHOLESTEROL / HYPERLIPIDEMIA Y HYPERTHYROIDISM N EYE PROBLEMS N EDEMA N CHRONIC PAIN SYNDROME N HYPOTHYROIDISM N CAROTID BLOCKAGE N CONSTIPATION N BACK / NECK PROBLEMS Y HAVE YOU BEEN HOSPITALIZED OR SEEN IN [facility] IN THE PAST YEAR ? N ATHEROSCLEROSIS N BREAST PROBLEMS N DIALYSIS N ECZEMA N OSTEOPOROSIS N ARTHRITIS Y APPENDICITIS N DIABETES, TYPE Y BAD TEETH N ENT N HEARTBURN / REFLUX N AUTISM SPECTRUM DISORDER (ASD) N HEPATITIS / LIVER DISEASE N GOUT N SLEEP DISORDER N ALZHEIMER'S DISEASE N Brain Problems N HERPES N DEMENTIA N HEADACHES/MIGRAINES N SEIZURES/EPILEPSY N VASCULAR DISEASE N PACEMAKER N Blood Disorder N DIZZINESS N HEART DISEASE/HEART PROBLEMS N KIDNEY DISEASE N MULTIPLE SCLEROSIS N CARDIAC ARRHYTHMIA N CANCER: SPECIFY N ATRIAL FIBRILLATION N Gall Stones N PULMONARY EMBOLISM N AUTOIMMUNE DISEASE N Gynecological HistoryNo gynecological history recorded. Obstetrics History GPAL:G 0 P 0 0 0 0 Immunizations Vaccine Type Date Status Note Provider Nam e and Address Organization Details Recorded Time Influenza, split virus, trivalent, preservative 4 completed Not Available [facility] 05/04/2023 03:56:17 Influenza, split virus, trivalent, preservative 3 completed Not Available [facility] 05/04/2023 03:56:17 COVID-19, mRNA, LNP-S, PF, 100 mcg/0.5mL dose or 50 mcg/0.25mL dose 1 completed Not Available [facility] 05/04/2023 03:56:16 COVID-19, mRNA, LNP-S, PF, 100 mcg/0.5mL dose or 50 mcg/0.25mL dose 1 completed Not Available [facility] 05/04/2023 03:56:16 COVID-19, mRNA, LNP-S, PF, 100 mcg/0.5mL dose or 50 mcg/0.25mL dose 1 completed Not Available [facility] 05/04/2023 03:56:16 Tdap 7 completed Not Available [facility] 05/04/2023 03:56:16 Influenza, high-dose, quadrivalent, PF 2 completed Not Available [facility] 05/04/2023 03:56:16 Influenza, high-dose, quadrivalent, PF 1 completed Not Available [facility] 05/04/2023 03:56:16 Influenza, high-dose, quadrivalent, PF 0 completed Not Available [facility] 05/04/2023 03:56:16 Influenza, high-dose, trivalent, PF 8 completed Not Available [facility] 05/04/2023 03:56:17 Influenza, high-dose, trivalent, PF 7 completed Not Available [facility] 05/04/2023 03:56:17 Td (adult), 2 Lf tetanus toxoid, preservative free, adsorbed 7 completed Not Available [facility] 05/04/2023 03:56:17 Influenza, split virus, quadrivalent, preservative 6 completed Not Available [facility] 05/04/2023 03:56:16 zoster live 7 completed Not Available [facility] 05/04/2023 03:56:16 pneumococcal polysaccharide PPV23 6 completed Not Available [facility] 05/04/2023 03:56:16 zoster live 5 completed Not Available [facility] 05/04/2023 03:56:16 Pneumococcal conjugate PCV 13 5 completed Not Available [facility] 05/04/2023 03:56:16 Influenza, split virus, quadrivalent, PF 5 completed Not Available [facility] 05/04/2023 03:56:17 Influenza, high-dose, quadrivalent, PF 3 completed Todd Zazueta MD [address], [address], [place], [address], [facility] 01/25/2023 22:09:54 Past Encounters Encounter ID Performer Location Encounter Start Date Encounter Closed Date Diagnosis/Indication Diagnosis SNOMED-CT Code Diagnosis ICD10 Code Diagnosis Note [id number] [facility] [address], [address] [place] [address] 08/25/2020 00:00:00 09/12/2020 21:46:42 [id number] [facility] [address] [address] 09/16/2020 00:00:00 09/16/2020 12:31:44 [id number] [facility] [address] [address] 09/30/2020 00:00:00 09/30/2020 14:01:34 [id number] [facility] [address] [address] 11/04/2020 00:00:00 11/04/2020 14:53:30 [id number] [facility] [place] [address] [place] [address] 12/23/2020 00:00:00 12/24/2020 11:52:40 [id number] [facility] [address] [place] [address] 12/29/2020 00:00:00 12/29/2020 22:34:37 [id number] [facility] E[facility] [place] [address] [place] [address] 01/20/2021 00:00:00 01/20/2021 12:55:23 [id number] [facility] [address] [facility] [address] [place] [address] 02/09/2021 00:00:00 02/27/2021 13:36:41 [id number] [facility] [address] [facility] [address] [place] [address] 03/30/2021 00:00:00 04/10/2021 13:10:46 [id number] [facility] [place] [address] [place] [address] 04/07/2021 00:00:00 04/07/2021 12:10:49 [id number] [facility] [place] [address] [place] [address] 05/19/2021 00:00:00 05/19/2021 12:19:52 [id number] [facility] Urology [address] [address] 06/09/2021 00:00:00 06/09/2021 12:12:41 [id number] [facility] [place] [address] [place] [address] 06/16/2021 00:00:00 06/16/2021 11:44:36 [id number] [facility] [place] [address] [place] [address] 06/23/2021 00:00:00 06/27/2021 10:12:44 [id number] [facility] [address] [facility] 15 [place] [address] 07/06/2021 00:00:00 07/06/2021 22:31:25 [id number] [facility] [place] [address] [place] [address] 07/28/2021 00:00:00 07/28/2021 10:50:38 [id number] [facility] [address] [address] 08/11/2021 00:00:00 08/11/2021 12:15:38 [id number] [facility] [place] [address] [place] [address] 09/22/2021 00:00:00 09/22/2021 11:38:26 [id number] [facility] [place] [address] [place] [address] 10/27/2021 00:00:00 10/31/2021 08:31:40 [id number] [facility] [address] [place] [address] 11/16/2021 00:00:00 11/20/2021 12:45:05 [id number] [facility] [address] [place] [address] 01/18/2022 00:00:00 02/12/2022 22:06:04 [id number] [facility] [place] [address] [place] [address] 01/26/2022 00:00:00 01/26/2022 15:20:08 [id number] [facility] [address] [place] [address] 04/26/2022 00:00:00 04/26/2022 18:47:06 [id number] Vaughn Nathan DPM [facility] [place] [address] [facility], [address] [place] [address] 07/20/2022 11:24:35 07/21/2022 14:55:50 Pain of toes of bilateral feet 5649145258 [id number] M79.674 M79.675 X-rays ordered bilateral feetfailed shoe gear athletic and silicon toe capsFollow -up post x-rays Callosity on toe 8295807 01 L84 offloading of toes to prevent woundsCont inue conservati ve measuresRe commend diabetic extra depth shoes with soft toe boxfollow- up in 1 month Bunion 747905290 M21.61 2 M21.611 as above Cigarette smoker 5032722 7 F17.210 recommend discontinu e smokingpat ient will need vascular evaluation if conservati ve therapies fail and surgery is warranted Foot callus 628719944 L8 4 bilateral plantar heelDebrid ed without incidentCo ntinue diabetic insertsFol low-up in 3 months [id number] Todd Zazueta MD [facility] [place] [facility] [address] [facility] , [place] [address] 07/27/2022 10:17:36 07/27/2022 11:12:14 Anticoagulant therapy 820290829 Z79.01 Essential hypertension 52602631 I10 Type 2 alyssia betes mellitus without complication 846455448 E11.9 Chronic da baron headache 4923405755 91779 R51.9 Coronary arteriosclerosis 15315856 I25.10 Chronic pain syndrome 37 4886933 G89.4 Hypercholesterolemia 136 02488 E78.00 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 [id number] Todd Zazueta MD [facility] [place] [facility] [address] [facility], [address] [address] 12/06/2022 11:21:04 12/06/2022 12:14:00 Anticoagulant therapy 898585310 Z79.01 Headache 49187499 R51.9 Sinusitis 90996313 J32.9 Essential hypertension 44489452 I10 Type 2 alyssia betes mellitus without complication 166267258 E11.9 Sciatica 69782555 M54.32 Coronary arteriosclerosis 40432195 I25.10 [id number] Todd Zazueta MD [facility] [place] [facility] [address] [address] 03/07/2023 10:54:47 03/07/2023 12:20:31 Anticoagulant therapy 651143580 Z79.01 Coronary arteriosclerosis 99192310 I25.10 Essential hypertension 02358165 I10 Hypercholesterolemia 136 55327 E78.00 Sciatica 05078178 M54.32 Vertebroba silar artery syndrome 757077636 G45.0 [id number] Vaughn Nathan DPM [facility] [place] [address], [address] [address] 06/07/2023 11:22:00 06/07/2023 13:56:14 Foot callus 048321278 L84 bilateral plantar heelDebrid ed without incidentre commend use of pumas stoneConti nue diabetic insertsFol low-up in 3 months Pain in both feet 654596 2121 9937662 M79.671 M79.672 Type 2 alyssia betes mellitus without complication 093948426 E11.9 [id number] Vaughn Nathan DPM [facility] [place] [address], [address] [address] 01/24/2024 13:48:38 04/18/2024 09:17:27 Diabetes mellitus 27758471 E11.9 continue diabetic control per PCP recommenda tion Dystrophia unguium 12377 009 L60.3 nails debrided without insert Diabetic p eripheral neuropathy 199194283 E11.40 recommend diabetic shoe gearcheck feet daily for wounds infection [id number] Vaughn Nathan DPM [facility] [place] [address], [address] [address] 03/27/2024 11:28:06 04/18/2024 14:03:03 Diabetes mellitus 71739546 E11.9 continue diabetic control per PCP recommenda tion Diabetic p eripheral neuropathy 555237719 E11.40 recommend diabetic shoe gearcheck feet daily for wounds infection Dystrophia unguium 12925 009 L60.3 nails debrided without insert Health Concerns Section Related Observation LastModified by Organization Detai ls LastModified Time None Recorded Concern Status LastModified by Organization Details LastModified Time None Recorded Advance Directives Directive N: Payers Encounter Date Sequence Insurance Name Policy Number Policy Alas Covered Member ID Alas Member ID Guarantor Name 12/06/2022 1 [employer] (MEDICARE REPLACEMENT/A DVANTAGE - POS) [id number] Mikie P Ball [id number] Mikie P Ball 03/07/2023 1 [employer] (MEDICARE REPLACEMENT/A DVANTAGE - POS) [id number] Mikie P Ball [id number] Mikie P Ball 06/07/2023 1 [employer] (MEDICARE REPLACEMENT/A DVANTAGE - POS) [id number] Mikie P Ball [id number] Mikie P Ball 01/24/2024 1 [employer] (MEDICARE REPLACEMENT/A DVANTAGE - POS) [id number] Mikie P Ball [id number] Mikie P Ball 03/27/2024 1 [employer] (MEDICARE REPLACEMENT/A DVANTAGE - POS) [id number] Mikie P Ball [id number] Mikie P Ball 03/27/2024 2 *SELF PAY* [employer] Notes Date Note Type Note Provider Name and Address Organization Details Recorded Time 12/06/2022 text/html chronic sinusiti s no betterPT INR reviewedchronic headaches no worsesciatica bothers her from time to timehypertension no chest pain no breathing problemsdiabetes does not really take sugar but she needs to get that evaluated with A1cCAD no chest pain Todd Zazueta MD [address], [place], [address], [employer] 01/07/2023 16:39:18 03/07/2023 text/html chronic sinusiti s no betterPT INR reviewedchronic headaches no worsesciatica bothers her from time to timehypertension no chest pain no breathing problemsdiabetes does not really take sugar but she needs to get that evaluated with A1cCAD no chest pain Todd Zazueta MD [address], [place], [address], [employer] 03/11/2023 18:57:35 06/07/2023 text/html Patient returns for DM foot care and painful heels due to callus. Patient denies any wounds. States pain when walking. Vaughn Nathan DPM [address], [place], [address], [employer] 06/07/2023 13:31:32 01/24/2024 text/html . Patient is a 73-year-old female she returns to the office for diabetic foot care she denies any wounds or injury to the foot. Patient has numbness and tingling of her feet she denies any redness, blisters, open wounds. Patient denies any other complaints. Vaughn Nathan DPM [address] [facility], [place] [address], [place], [address], [employer] 03/06/2024 09:08:15 03/27/2024 text/html patient is a 74-year-old female diabetic she returns for follow-up on diabetic foot care. Patient continues have numbness and tingling she denies any open wounds. Patient states that her nails are long and painful she states she is unable to cut them. Patient denies any other complaints. Vaughn Nathan DPM [address] [facility] [address], [place], [address], [employer] 03/31/2024 09:42:48 OBGyn Episode No OBEpisode recorded.
--- OUTSIDE RECORDS SUMMARY | 2024-05-22 11:50 | XMS_ITS | Clinical Summary ---
Author Organization [facility] Address [address] [place] [address]. [place] [address] [place] [address] Care Team Providers Care Configuration Engineer Name Role Phone Todd Zazueta MD Primary Care Provider [phone] Allergies Active Allergy Reactions Criticality Noted Date Comments Aspirin Unknown 04/03/2017 Cephalexin Unknown 04/03/2017 Codeine Nausea Only Low 05/15/2017 Iodinated Contrast Media Unknown 05/25/2022 Penicillins Nausea Only Low 05/15/2017 Medications CALCIUM ASCORBATE OR Take by mouth daily. Active Simethicone 125 MG Cap as needed. Active B Complex Vitamins Cap Take 1 capsule by mouth daily. Active Multiple Vitamins-Minerals (ONE-A-DAY VITACRAVES) Chew Tab Chew by mouth daily. Active Vitamins A & D (VITAMIN A & D) 5000-400 units Cap Take by mouth daily. Active VITAMIN D, ERGOCALCIFEROL, 1.25 mg capsule Vitamin D2 1,250 mcg (50,000 unit) capsule Active traMADol (ULTRAM) 50 MG tablet Take 1 tablet (50 mg total) by mouth as needed. Active acetaminophen (TYLENOL) 500 MG tablet Take 1 tablet (500 mg total) by mouth every 6 (six) hours as needed. Active BREO ELLIPTA 100-25 MCG/ACT inhaler Inhale 1 puff into the lungs daily. 09/01/19 Active warfarin (COUMADIN) 7.5 MG tablet Take 1 tablet (7.5 mg total) by mouth see administration instructions. Active warfarin (COUMADIN) 5 MG tablet Take 1 tablet (5 mg total) by mouth see administration instructions. Active metFORMIN ER (GLUCOPHAGE-XR) 500 MG 24 hr tablet Take 1 tablet (500 mg total) by mouth daily. Active probiotic (FLORAGEN) capsule Take 1 capsule by mouth daily. Active atorvastatin (LIPITOR) 20 MG tablet Take 1 tablet (20 mg total) by mouth daily. Active cloNIDine (CATAPRES) 0.1 MG tablet Take 1 tablet (0.1 mg total) by mouth 2 (two) times daily. Active carvedilol (COREG) 25 MG tablet Take 1 tablet (25 mg total) by mouth 2 (two) times daily. Active amLODIPine (NORVASC) 10 MG tablet Take 1 tablet (10 mg total) by mouth daily. Active atogepant (QULIPTA) tabletIndications: Migraine without aura, not intractable, without status migrainosus Take 1 tablet (60 mg total) by mouth daily. 30 tablet 11 09/08/19 23 Active rimegepant (NURTEC) 75 MG disintegrating tabletIndications: Migraine without aura, not intractable, without status migrainosus Take 1 tablet (75 mg total) by mouth as needed for Migraine. 16 tablet 11 09/14/19 23 Active ubrogepant (UBRELVY) 100 MG tabletIndications: Migraine without aura, not intractable, without status migrainosus Take 1 tablet (100 mg total) by mouth 2 (two) times daily as needed for Migraine. 16 tablet 11 10/27/19 23 Active Active Problems No known active problems Immunizations Name Administration Dates Next Due Influenza (Generic) 02/05/2014,01/22/2013 Influenza Adult (Generic) 01/18/2022,,02/18/2021,2020,01/28/2020,01/28/2020,03/06/2018,1 ,02/03/2016,02/11/2015 [facility]NA COVID-19 (12+) MRNA, LNP-S, PF, 100 MCG/ 0.5 ML DOSE 07/16/2020,06/18/2020 MODERNA COVID-19 (HY[employer]PER[employer]OR FADY LILY), MRNA, LNP-S, PF, 50 MCG/ 0.25 ML DOSE 03/23/2021 Pneumococcal (Pneumovax 23) 09/29/2015 Pneumococcal (Prevnar 13) 03/31/2015 Shingrix 06/23/2022,03/08/2022 Td (TDVAX) 11/08/2016 Tdap (Generic) 06/23/2022,03/08/2022,11/08/2016 Zoster (Zostavax) 97173 Unt/0.65Ml 10/04/2016, Family History Medical History Relation Comments Alzheimer's disease Brother Cancer Father Cancer Mother Diabetes Sister Relation Status Comments Brother Father Mother Sister Social History Tobacco Use Types Packs/Day Years Used Date Smoking Tobacco: Every Day Cigarettes Smokeless Tobacco: Never Tobacco Cessation:Ready to Q uit: Yes; Counseling Given: Yes Alcohol Use Standard Drinks/Week Comments Not Currently 0 (1 standard drink = 0.6 oz pur e alcohol) rarely PHQ-2 Answer Date Recorded Patient Health Questionnaire-2 Score 0 09/07/2022 Comments Unknown Sex and Gender Information Value Date Recorded Sex Assigned at Not on file Legal Sex Female 10:13 AM CDT Gender Identity Not on file Sexual Orientation Not on file Last Filed Vital Signs Vital Sign Reading Time Taken Comments Blood Pressure 166/92 09/07/2022 11:34 AM CDT Pulse 65 09/07/2022 11:34 AM CDT Temperature 37.3 ??C (99.1 ??F) 09/07/2022 1 1:07 AM CDT Respiratory Rate - - Oxygen Saturation 95% 09/07/2022 11: 07 AM CDT Inhaled Oxygen Concentration - - Weight 63.4 kg (139 lb 12.8 oz) 023 11:07 AM CDT Height 154.9 cm (5' 1 ) 09/07/2022 11:0 7 AM CDT pt stated Body Mass Index 26.41 09/07/2022 11:07 AM CDT Plan of Treatment Health Maintenance Due Date Last Done Comments Colorectal Cancer Screening Colonoscopy (10 Years) 1950 Hepatitis C 1968 Annual Medicare Wellness Visit 2014 Dexa Scan (General) 2014 PHQ-2 (Physician [place]) 09/08/2023 09/07/2022 COVID-19 Vaccine ( season) 2023 02/27/2022, 03/23/2021, 07/16/2020, Additional history exists Influenza Adult (#1) 2024 01/18/2022, 01/18/2022, 02/18/2021, Additional history exists RSV Immunization or 60+ Years (1 - 1-dose 75+ series) 02/23/2024 PHQ-2 (Physician [place]) 04/23/2024 09/07/2022 DTaP, Tdap and Td Vaccines (4 - Td or Tdap) 06/23/2032 06/23/2022, 03/08/2022, 11/08/2016, Additional history exists Pneumococcal Vaccine: 65+ Years Completed 09/29/2015, 03/31/2015 Zoster Vaccines Completed 06/23/2022, 02/21, 10/04/2016, Additional history exists Meningococcal B Vaccine Aged Out No l onger eligible based on patient's age to complete this topic Meningococcal Vaccine Aged Out No arnulfo jyoti eligible based on patient's age to complete this topic RSV Immunizations Under 20 Months Aged Out No longer eligible based on patient's age to complete this topic Insurance Care Teams Configuration Engineer Relationship Specialty Start Date End Date Todd Zazueta MD [address] [place] [address] PCP - General INTERNAL MEDICINE 11/22/21
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
== END 2024-05-22 10:57 | disposition home or self-care (01) ==
LOC: ANHIMG 10:58
PROVIDERS: PCP Internal Medicine; Visit Provider Obstetrics & Gynecology
DX: Z12.31 Encounter for screening mammogram for malignant neoplasm of breast (principal)
CPT/HCPCS: 77063; 77067

== ENCOUNTER 2024-11-12 09:40 | Outpatient (RCR) | payer MEDICARE, SELFPAY ==
[2024-11-12 11:03] VITALS: BMI 25.0
== END 2025-01-26 08:49 | disposition home or self-care (01) ==
LOC: ANHDMC 09:40
PROVIDERS: PCP Internal Medicine; Visit Provider Internal Medicine
DX: E11.9 Type 2 diabetes mellitus without complications (principal); Z71.3 Dietary counseling and surveillance
CPT/HCPCS: 97802